=== PATIENT | female | born 1955 | race Caucasian/White ===

== ENCOUNTER 2022-08-17 06:49 | Outpatient (CLI) | payer OTHER | END 2022-08-17 06:50 | disposition critical access hospital (66) | LOC: EMS 06:49 | DX: R10.31 Right lower quadrant pain (principal) | CPT/HCPCS: A0425; A0427 ==

== ENCOUNTER 2022-08-17 07:19 | Emergency (ER) | payer OTHER ==
[2022-08-17] MEDS ORDERED: SODIUM CHLORIDE 0.9% 1,000 ML IV STA (07:42)
[2022-08-17] MEDS ORDERED: MORPHINE 2 MG/ML CARPUJECT IVP STA (07:42)
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
[2022-08-17 07:50] LABS: BASOPHILS % (AUTO) 0.2 %; EOSINOPHILS % (AUTO) 0.2 %; HCT - HEMATOCRIT 36.1 % (37.0-47.0); HGB - HEMOGLOBIN 12.1 g/dL (12.0-16.0); LYMPHOCYTES # (AUTO) 1.8 10^3/uL (1.5-3.5); LYMPHOCYTES % (AUTO) 32.4 %; MEAN CORPUSCULAR HEMOGLOBIN 33.4 pg (27.0-31.0); MEAN CORPUSCULAR HGB CONC 33.5 g/dL (32.0-36.0); MEAN CORPUSCULAR VOLUME 99.7 fL (81.0-99.0); MEAN PLATELET VOLUME 8.7 fL (7.9-10.8); MONOCYTES # (AUTO) 0.6 10^3/uL (0.0-1.0); NEUTROPHILS # (AUTO) 3.2 10^3/uL (1.5-6.6); NEUTROPHILS % (AUTO) 55.8 %; PLT - PLATELET COUNT 199 10^3/uL (130-450); RED BLOOD COUNT 3.62 10^6/uL (4.20-5.40); RED CELL DISTRIBUTION WIDTH 11.9 % (12.0-15.0); WHITE BLOOD COUNT 5.6 x10^3/uL (4.8-10.8)
[2022-08-17 08:00] LABS: BILIRUBIN,URINE NEGATIVE (NEGATIVE); GLUCOSE, URINE (UA) NEGATIVE (NEGATIVE); KETONES,URINE (UA) NEGATIVE (NEGATIVE); LEUKOCYTE ESTERASE, URINE NEGATIVE (NEGATIVE); NITRITE,URINE NEGATIVE (NEGATIVE); OCCULT BLOOD,URINE NEGATIVE (NEGATIVE); PROTEIN,URINE NEGATIVE (NEGATIVE); UROBILINOGEN,URINE 0.2 (NORMAL) E.U./dL (NORMAL)
[2022-08-17 08:03] LABS: CLARITY,URINE CLEAR (CLEAR)
[2022-08-17 08:10] LABS: ALBUMIN 3.5 g/dL (3.2-5.5); ALBUMIN/GLOBULIN RATIO 1.3 (1.0-2.2); BILIRUBIN,TOTAL 0.5 mg/dL (0.2-1.0); CALCIUM 8.7 mg/dL (8.5-10.3); CREATININE 0.6 mg/dL (0.4-1.0); POTASSIUM 3.7 mmol/L (3.5-5.0); TOTAL PROTEIN 6.1 g/dL (6.7-8.2)
--- NOTE | 2022-08-17 08:46 | CT Report ---
PROCEDURE: ABDOMEN/PELVIS WO INDICATIONS: R flank pain TECHNIQUE: Noncontrast 5 mm thick sections acquired from the diaphragms to the symphysis. 5 mm coronal and sagi ttal reformats were then performed. For radiation dose reduction, the following was used: automated exposure control, adjustment of mA and/or kV according to patient size. COMPARISON: None. FINDINGS: Image quality: There is limited visualization of the pelvis secondary to artifact from hip fixation. ABDOMEN: Lung bases: Rounded opacity is noted in the lateral aspect of the left lower lobe measuring approxima tely 1 cm.. Heart size is normal. Solid organs: Liver and spleen are normal in size. Gallbladder is no visual Pancreas is normal in contours. No adrenal nodules. Kidneys are normal in size.. Punctate nonobstructing right renal calc ulus is present. The ureters are difficult to discern bilaterally secondary to significant colonic st ool. There is a punctate area of the increased density within the expected course of the distal right ureter. There is minimal prominence of the left renal renal collecting system and left ureter. Peritoneum and bowel: Unenhanced bowel loops are nonobstructed. Colonic diverticula are present with out associated inflammatory change. Significant colonic stool is present. No free fluid or air. Nodes and vessels: No retroperitoneal or mesenteric adenopathy by size criteria. Aorta and inferior vena cava are normal in caliber. Miscellaneous: No ventral hernias. PELVIS: Genitourinary: Bladder wall thickness is normal. Miscellaneous: No inguinal hernias or adenopathy. Bones: No suspicious bony lesions. No vertebral body compression fractures. IMPRESSION: Poor visualization of the ureters bilaterally secondary to significant colonic stool. However, there is a punctate area of faint calcification along the expected course of the distal right ureter with s light prominence of the renal collecting system and right ureter suggestive of stone. Rounded opacity within the right lung suggestive of scarring. However, no priors are available for co mparison and [address] chest follow-up is recommended. Reviewed by: Candis Hernandez MD on 08/17/2022 8:45 AM PDT Approved by: Candis Hernandez MD on 08/17/2022 8:45 AM PDT Station ID: [id number]
[2022-08-17] MEDS ORDERED: KETOROLAC 30 MG/ML VIAL IVP STA (11:00)
[2022-08-17] MEDS ORDERED: oxyCODONE 5 MG TABLET PO STA (11:00)
[2022-08-17 11:02] VITALS: BP 104/71
== END 2022-08-17 11:09 | disposition home or self-care (01) ==
LOC: ED 07:19
DX: N20.1 Calculus of ureter (principal); R94.8 Abnormal results of function studies of other organs and systems
CPT/HCPCS: 36415; 74176; 80053; 81003; 83690; 85025; 96374; 96375; 99283; 99284; A9270; 81001; 87086

== ENCOUNTER 2023-06-19 15:52 | Outpatient (CLI) | payer OTHER | END 2023-06-19 15:53 | disposition short-term general hospital (02) | LOC: EMS 15:52 | PROVIDERS: ATTEND Emergency Medicine | DX: M79.89 Other specified soft tissue disorders (principal); M79.661 Pain in right lower leg; M79.672 Pain in left foot; S90.462A Insect bite (nonvenomous), left great toe, initial encounter; S90.464A Insect bite (nonvenomous), right lesser toe(s), initial encounter; S80.861A Insect bite (nonvenomous), right lower leg, initial encounter; S50.861A Insect bite (nonvenomous) of right forearm, initial encounter; W57.XXXA Bitten or stung by nonvenomous insect and other nonvenomous arthropods, initial encounter | CPT/HCPCS: A0425; A0429 ==

== ENCOUNTER 2024-04-09 12:02 | Outpatient (CLI) | payer OTHER | END 2024-04-09 12:03 | disposition critical access hospital (66) | LOC: EMS 12:02 | DX: T65.91XA Toxic effect of unspecified substance, accidental (unintentional), initial encounter (principal); R40.4 Transient alteration of awareness; R06.89 Other abnormalities of breathing | CPT/HCPCS: A0425; A0429 ==

== ENCOUNTER 2024-04-09 12:22 | Inpatient (IN) | payer OTHER ==
--- NOTE | 2024-04-09 12:28 | ED Physician Documentation ---
PD HPI ALTERED MENTAL STATUS - Stated complaint Stated Complaint: OD - History obtained from History obtained from: Patient, Friend, EMS (Medics brought the patient in with altered mental status with report from family/friend that the patient was poorly responsive with low ventilation and was given Narcan by bystander and did have some chest compressions briefly. The patient was rousable but low sats in low ventilation by medics.) - History of Present Illness Timing - onset: Today Timing - details: Abrupt onset (Reportedly onset after the patient was smoking reportedly cannibis and cocaine or snorting as well. However bystander thinks there may have been fentanyl, meth as well.) Quality / character: Unresponsive Associated symptoms: No: NVD, Seizure activity Basline status: Alert and oriented X 3, Ambulatory Treatment STEERSMAN: Accucheck, Narcan, Airway management (supplemental oxygen as sats about 80% RA.) Recently seen: Not recently seen Review of Systems Unable to obtain: AMS PD PAST MEDICAL HISTORY - Present Medications Home Medications: Ambulatory Orders Medication Instructions Recorded Confirmed Ondansetron Odt [Zofran] 4 mg TL Q6H PRN #10 tablet 08/17/22 Oxycodone HCl/Acetaminophen 1 each PO Q6H PRN #14 tablet 08/17/22 [Percocet 5-325 mg Tablet] Tamsulosin [Flomax] 0.4 mg PO DAILY #14 cap 08/17/22 polyethylene glycoL 3350 [Miralax] 17 gm PO DAILY PRN #14 packet 08/17/22 - Allergies Allergies/Adverse Reactions: Allergies Allergy/AdvReac Type Severity Reaction Status Date / Time No Known Drug Allergies Allergy Verified 04/09/24 12:33 PD ED PE NORMAL - Vitals Vital signs reviewed: Yes - General General: Other (somnolent, rousable to tactile with eyes opening but stuporous and slow to answer questions. ) - HEENT HEENT: Pharynx benign (adequate gag reflex) - Neck Neck: Supple, no meningeal sign, No adenopathy - Cardiac Cardiac: RRR, No murmur - Respiratory Respiratory: No respiratory distress, Clear bilaterally - Abdomen Abdomen: Soft, Non tender, Non distended, Other (large ower bd midline scar old. ) - Derm Derm: Normal color, Warm and dry - Extremities Extremities: No tenderness to palpate, Normal ROM s pain - Neuro Neuro: No motor deficit, No sensory deficit. No: Alert and oriented X 3 (oriented to person) Results - Vitals Vitals: Vital Signs - 24 hr 04/09/24 04/09/24 04/09/24 12:29 13:03 13:33 Temperature 36.3 C L Heart Rate 85 74 81 Respiratory 14 12 13 Rate Blood Pressure 119/81 H 99/69 106/89 H O2 Saturation 90 L 95 88 L If not protocol 2 2 : Oxygen Flow, liters/minute 04/09/24 04/09/24 04/09/24 14:03 14:30 15:30 Temperature Heart Rate 85 79 86 Respiratory 13 15 9 L Rate Blood Pressure 101/73 96/71 97/70 O2 Saturation 89 L 96 93 If not protocol 2 2 4 : Oxygen Flow, liters/minute 04/09/24 04/09/24 16:00 16:53 Temperature Heart Rate 84 80 Respiratory 21 10 L Rate Blood Pressure 100/74 107/80 O2 Saturation 99 96 If not protocol 4 4 : Oxygen Flow, liters/minute Oxygen O2 Source Nasal cannula Oxygen Flow Rate 3 - Labs Labs: Laboratory Tests 04/09/24 04/09/24 04/09/24 12:27 12:27 12:45 WBC 4.8 RBC 3.74 L Hgb 12.4 Hct 37.9 MCV 101.3 H MCH 33.2 H MCHC 32.7 RDW 13.0 Plt Count 218 MPV 9.2 Neut # (Auto) 2.9 Lymph # (Auto) 1.3 L [place] # (Auto) 0.5 Eos # (Auto) 0.0 Baso # (Auto) 0.0 Absolute Nucleated RBC 0.00 Nucleated RBC % 0.0 VBG pH VBG pCO2 VBG pO2 VBG HCO3 VBG Total CO2 VBG O2 Saturation VBG Base Excess Sodium 135 Potassium 3.3 L Chloride 103 Carbon Dioxide 24 Anion Gap 8.0 BUN 16 Creatinine 0.6 Estimated GFR (MDRD) 100 Glucose 181 H Calcium 9.5 Magnesium 1.6 L Total Bilirubin 0.5 AST 23 ALT 14 Alkaline Phosphatase 101 Total Creatine Kinase 77 Total Protein 6.9 Albumin 4.3 Globulin 2.6 Albumin/Globulin Ratio 1.7 Lipase < 10 L TSH 68.07 H Thyroxine (T4) 4.8 L Free T3 pg/mL 3.20 T3 Uptake 42 Urine Color Urine Clarity Urine pH Ur Specific [place] Urine Protein Urine Glucose (UA) Urine Ketones Urine Occult Blood Urine Nitrite Urine Bilirubin Urine Urobilinogen Ur Leukocyte Esterase Ur Microscopic Review Urine Culture Comments Salicylates < 1.5 Urine Opiates Screen Ur Buprenorphine Scrn Ur Oxycodone Screen Urine Methadone Screen Acetaminophen 0.2 Ur Barbiturates Screen Ur Tricyclics Screen Ur Phencyclidine Scrn Ur Amphetamine Screen U Methamphetamines Scrn U Benzodiazepines Scrn Urine Cocaine Screen U Cannabinoids Screen Ur Drug Screen Comment Ethyl Alcohol < 10.0 04/09/24 04/09/24 16:47 16:48 WBC RBC Hgb Hct MCV MCH MCHC RDW Plt Count MPV Neut # (Auto) Lymph # (Auto) [place] # (Auto) Eos # (Auto) Baso # (Auto) Absolute Nucleated RBC Nucleated RBC % VBG pH 7.203 L VBG pCO2 50.0 VBG pO2 139.1 H VBG HCO3 19.2 L VBG Total CO2 20.8 L VBG O2 Saturation 98.2 H VBG Base Excess -8.8 L Sodium Potassium Chloride Carbon Dioxide Anion Gap BUN Creatinine Estimated GFR (MDRD) Glucose Calcium Magnesium Total Bilirubin AST ALT Alkaline Phosphatase Total Creatine Kinase Total Protein Albumin Globulin Albumin/Globulin Ratio Lipase TSH Thyroxine (T4) Free T3 pg/mL T3 Uptake Urine Color YELLOW Urine Clarity CLEAR Urine pH 5.5 Ur Specific [place] >=1.030 H Urine Protein TRACE Urine Glucose (UA) NEGATIVE Urine Ketones NEGATIVE Urine Occult Blood NEGATIVE Urine Nitrite NEGATIVE Urine Bilirubin NEGATIVE Urine Urobilinogen 0.2 (NORMAL) Ur Leukocyte Esterase NEGATIVE Ur Microscopic Review NOT INDICATED Urine Culture Comments NOT INDICATED Salicylates Urine Opiates Screen NEGATIVE Ur Buprenorphine Scrn NEGATIVE Ur Oxycodone Screen NEGATIVE Urine Methadone Screen NEGATIVE Acetaminophen Ur Barbiturates Screen NEGATIVE Ur Tricyclics Screen NEGATIVE Ur Phencyclidine Scrn NEGATIVE Ur Amphetamine Screen NEGATIVE U Methamphetamines Scrn POSITIVE H U Benzodiazepines Scrn NEGATIVE Urine Cocaine Screen POSITIVE H U Cannabinoids Screen POSITIVE H Ur Drug Screen Comment CUTOFF CONC BELOW: Ethyl Alcohol - Rads (name of study) chest xray Relevant Findings:: Prelim report reviewed (no acute process), EMP independent interpretation of test PD Medical Decision Making - ED course Complexity details: considered differential (The patient arrived via EMS with history mainly from the medics. Reported use of substances with significant altered mentation and hypoventilation. Given Narcan with moderate improvement. Still hypoxic. Still somnolent.), d/w patient ED course: The patient did have adequate respiratory effort and oxygenation with supplemental nasal cannula at just 2 L. She was arousable to tactile stimuli with eye opening and answering some questions though sluggish. She states she had used cannabis and cocaine but I think her symptoms are more suggestive of opioid and possibly meth. At this point we are still waiting a urine. She is given IV fluids as well as placed on the heart monitor. With initial labs back we were seeing a low potassium and magnesium just moderately so with a potassium 3.3 and magnesium 1.6. However on her EKG she did have QT prolongation so I opted to treat with supplemental magnesium and potassium as well as fluids to improve on that. There is no report of syncope. She still had not had any urine out. Bladder scan to see if there is retention but we can do an In-N-Out catheter to get a urine sample. The patient initially when talking with me did states she would be interested in detox. I ordered social work consult. Rosalie came and talked with the patient but the patient declined desire for any detox or treatment. She was given the information for the places to call if she changes her mind in the near future. The patient has become more somnolent. She is still arousable for eye-opening to tactile stimuli. Oxygenation on 2 L nasal cannula is about 90%. She is given a repeat dose of Narcan IV. We will check a VBG as well to make sure ventilation is adequate at this point given the decreasing alertness. Will see how she does with the repeat medicines and such. If it is not so much of an opioid effect, then concern would be for the duration of symptoms and whether she may needed's status presuming a little longer duration. However at this point we will start working on repeat medicines and the urine tox screen. It has been about 3 hours at this point so we will give a short time more. The patient did get up to a bedside commode and urinated. We did check a blood gas which showed some metabolic acidosis with a pH of 7.2 and a low bicarb. However pCO2 was good at 50 and pO2 was actually on the high side at 98% though she was more stimulated with the blood draw at the time. Subsequent she does go back to sleep quite readily. She is arousable to light tactile stimulus. Her oxygenation however is below 90% on room air and adequate above 90% on nasal cannula. She is maintained with the head of the bed elevated. Blood pressure is adequate. She is receiving IV fluids. At this point we have 30 urine tox showing meth, cocaine, cannabis and she likely has other substances on board that would not show such as possible fentanyl or xylazine etc., it seems reasonable that she is stable and vital signs and ventilation but needs time to metabolize. Departure - Departure Disposition: ED Place in Observation Clinical Impression: Altered mental status, Polysubstance abuse, Electrolyte abnormality, Hypoxia Condition: Stable Record reviewed to determine appropriate education?: Yes
[2024-04-09 12:42] LABS: HCT - HEMATOCRIT 37.9 % (37.0-47.0); HGB - HEMOGLOBIN 12.4 g/dL (12.0-16.0); LYMPHOCYTES # (AUTO) 1.3 10^3/uL (1.5-3.5); LYMPHOCYTES % (AUTO) 27.3 %; MEAN CORPUSCULAR HEMOGLOBIN 33.2 pg (27.0-31.0); MEAN CORPUSCULAR HGB CONC 32.7 g/dL (32.0-36.0); MEAN CORPUSCULAR VOLUME 101.3 fL (81.0-99.0); MEAN PLATELET VOLUME 9.2 fL (7.9-10.8); MONOCYTES # (AUTO) 0.5 10^3/uL (0.0-1.0); MONOCYTES % (AUTO) 9.9 %; NEUTROPHILS # (AUTO) 2.9 10^3/uL (1.5-6.6); NEUTROPHILS % (AUTO) 61.1 %; PLT - PLATELET COUNT 218 10^3/uL (130-450); RED BLOOD COUNT 3.74 10^6/uL (4.20-5.40); WHITE BLOOD COUNT 4.8 x10^3/uL (4.8-10.8)
[2024-04-09] MEDS: SODIUM CHLORIDE 0.9% 1,000 ML IV STA (12:52)
[2024-04-09] MEDS: ONDANSETRON 4 MG/2 ML VIAL IVP STA (12:52)
[2024-04-09 13:00] LABS: ACETAMINOPHEN 0.2 ug/mL; ALBUMIN 4.3 g/dL (3.2-5.5); ALBUMIN/GLOBULIN RATIO 1.7 (1.0-2.2); ALKALINE PHOSPHATASE 101 IU/L (42-121); ALT ALANINE AMINOTRANSFERASE 14 IU/L (10-60); AST ASPARTATE AMINOTRANSFERASE 23 IU/L (10-42); BILIRUBIN,TOTAL 0.5 mg/dL (0.2-1.0); BUN - BLOOD UREA NITROGEN 16 mg/dL (6-20); CALCIUM 9.5 mg/dL (8.5-10.3); CARBON DIOXIDE - CO2 24 mmol/L (21-32); CHLORIDE 103 mmol/L (101-111); CK- CREATINE KINASE 77 IU/L (30-223); CREATININE 0.6 mg/dL (0.6-1.3); ETOH - ETHANOL < 10.0 mg/dL; GFR - MDRD 100 (>89); GLUCOSE 181 mg/dL (74-104); MAGNESIUM 1.6 mg/dL (1.7-2.3); POTASSIUM 3.3 mmol/L (3.5-4.5); SODIUM 135 mmol/L (135-145); TOTAL PROTEIN 6.9 g/dL (6.4-8.9)
[2024-04-09 13:01] LABS: LIPASE < 10 U/L (11-82)
[2024-04-09 13:03] LABS: SALICYLATE < 1.5 mg/dL
--- NOTE | 2024-04-09 13:05 | XRAY Report ---
PROCEDURE: Chest 1V INDICATIONS: SOA TECHNIQUE: One view of the chest was acquired. COMPARISON: None. FINDINGS: Surgical changes and devices: None. Lungs and pleura: No pleural effusions or pneumothorax. Lungs are clear. Mediastinum: Mediastinal contours appear normal. Heart size is normal. Bones and chest wall: No suspicious bony lesions. Overlying soft tissues appear unremarkable. Upper abdomen: Prominent gastric bubble. IMPRESSION: No acute cardiopulmonary process. Prominent gastric bubble. Reviewed by: Candis Hernandez MD on 04/09/2024 1:03 PM PDT Approved by: Candis Hernandez MD on 04/09/2024 1:03 PM PDT Station ID: [id number]
[2024-04-09 13:37] LABS: THYROID STIMULATING HORMONE 68.07 uIU/mL (0.34-5.60)
[2024-04-09] MEDS: THIAMINE INJ 100 MG, MAGNESIUM SULFATE 2 GM, MULTIVITAMIN 10 ML, FOLIC ACID INJ 1 MG in... IV STA (14:45)
[2024-04-09] MEDS: NALOXONE 0.4 MG/ML VIAL IVP STA ×2 (15:55→17:55)
[2024-04-09] MEDS: MAGNESIUM SULFATE 2 GRAM 2 GM/50 ML BAG IV ONE ×2 (16:32→22:38)
[2024-04-09] MEDS: POTASSIUM CHLOR 10 MEQ/100 ML 10 MEQ/100 ML BAG IV STA (16:40)
[2024-04-09 16:55] LABS: VBG BASE EXCESS -8.8 mmol/L (-2 - +2); VBG HCO3 19.2 mmol/L (23-28); VBG OXYGEN SATURATION 98.2 % (60-80); VBG PH 7.203 (7.31-7.41); VBG PO2 139.1 mmHg (25-47); VBG TOTAL CO2 20.8 mmol/L (24-29)
[2024-04-09 16:57] LABS: BILIRUBIN,URINE NEGATIVE (NEGATIVE); GLUCOSE, URINE (UA) NEGATIVE (NEGATIVE); KETONES,URINE (UA) NEGATIVE (NEGATIVE); LEUKOCYTE ESTERASE, URINE NEGATIVE (NEGATIVE); NITRITE,URINE NEGATIVE (NEGATIVE); OCCULT BLOOD,URINE NEGATIVE (NEGATIVE); PH,URINE 5.5 PH (5.0-7.5); PROTEIN,URINE TRACE mg/dL (NEGATIVE); UROBILINOGEN,URINE 0.2 (NORMAL) E.U./dL (NORMAL)
[2024-04-09 16:58] LABS: CLARITY,URINE CLEAR (CLEAR)
[2024-04-09 17:04] LABS: THC CANNABINOID SCREEN, URINE POSITIVE (NEGATIVE)
[2024-04-09 17:05] LABS: AMPHETAMINE SCREEN,URINE NEGATIVE (NEGATIVE); BARBITURATE SCREEN,UR NEGATIVE (NEGATIVE); BENZODIAZEPINES SCREEN, URINE NEGATIVE (NEGATIVE); BUPRENORPHINE SCREEN, URINE NEGATIVE (NEGATIVE); COCAINE SCREEN URINE POSITIVE (NEGATIVE); METHADONE SCREEN, URINE NEGATIVE (NEGATIVE); METHAMPHETAMINES SCREEN, URINE POSITIVE (NEGATIVE); OPIATE SCREEN, URINE NEGATIVE (NEGATIVE); OXYCODONE SCREEN, URINE NEGATIVE (NEGATIVE); TRICYCLIC ANTIDEPRESSANT,URINE NEGATIVE (NEGATIVE)
--- NOTE | 2024-04-09 19:00 | HISTORY & PHYSICAL EXAMINATION ---
Chief Complaint - Chief Complaint Chief Complaint: Altered Mental Status History of Present Illness - Admitted From Admitted From:: Emergency Room - History Obtained From Records Reviewed: Yes History obtained from: Patient and Dr. Remi Alvarado - History of Present Illness HPI Comment/Other: Marcella Torres is a 68-year-old woman who presented to the emergency room at approximately 1228 with altered mental status. Patient was brought to the e mergency room by EMS service. Per report patient was not ventilating in the field and was unresponsive. She was given Narcan by a bystander and received chest compressions briefly. Upon arrival of EMS service, patient had low oxygen saturation. It is reported that patient was smoking cannabis and using cocaine. Bystanders thinks the patient may also used fentanyl and methamphetamine possibly. Patient reports she is supposed to take levothyroxine but has not taken it for several months. She also reports that she is on a blood thinner but has not been taking this for months as well. She reports a history of myocardial infarction and stroke. She has a [id number] history of smoking. She reports she drinks alcohol regularly but could not quantitate how much alcohol she drinks. She reports using methamphetamine and cocaine when she can obtain it. She reports smoking cannabis regularly. She denies use of opiates. In the emergency room, laboratory workup revealed no anion gap with a potassium of 3.3, glucose of 181 and a magnesium of 1.6. Patient's TSH was 68 and free T4 was 4.8. Chest x-ray performed in the emergency room revealed no acute cardiopulmonary process. In the emergency room, patient received doses of Narcan intermittently and usually received 2 mg intravenously. It is reported that patient's mental status improved slightly with use of Narcan. History - Past Medical History Endocrine/Autoimmune: reports: HyPOthyroidism Psych: reports: Other (Polysubstance abuse. Patient reports using methamphetamine, cocaine, cannabis and alcohol) - Family & Social History Family History Comment/Other: Patient has 1 son and she reports he is currently improving. Living arrangement: Homeless Living Situation: Unknown, Other (She reports she lives out of her car.) - Substance History Use: Uses substance without health or social issues: Tobacco, Alcohol, Amphetamine, Cannabis, Cocaine Dependence: Experiences withdrawal or developed tolerances: Cannabis, Cocaine, Other (Methamphetamine.) Dependence Issues: Intoxication Tobacco Details: Cigarettes - POLST Patient has POLST: No POLST Status: Full Code Meds/Allgy - Home Medications Home Medications: Ambulatory Orders Medication Instructions Recorded Confirmed Ondansetron Odt [Zofran] 4 mg TL Q6H PRN #10 tablet 08/17/22 Oxycodone HCl/Acetaminophen 1 each PO Q6H PRN #14 tablet 08/17/22 [Percocet 5-325 mg Tablet] Tamsulosin [Flomax] 0.4 mg PO DAILY #14 cap 08/17/22 polyethylene glycoL 3350 [Miralax] 17 gm PO DAILY PRN #14 packet 08/17/22 - Allergies Allergies/Adverse Reactions: Allergies Allergy/AdvReac Type Severity Reaction Status Date / Time No Known Drug Allergies Allergy Verified 04/09/24 12:33 Exam - Vital Signs Vital Signs: Vital Signs x48h Temp Pulse Resp BP Pulse Ox O2 Flow Rate 04/09/24 17:30 112 H 26 H 103/72 100 6 04/09/24 16:53 80 10 L 107/80 96 4 04/09/24 16:00 84 21 100/74 99 4 04/09/24 15:30 86 9 L 97/70 93 4 04/09/24 14:30 79 15 96/71 96 2 04/09/24 14:03 85 13 101/73 89 L 2 04/09/24 13:33 81 13 106/89 H 88 L 2 04/09/24 13:03 74 12 99/69 95 2 04/09/24 12:29 36.3 C L 85 14 119/81 H 90 L - Physical Exam General Appearance: positive: No acute distress, Alert Eyes Bilateral: positive: Normal inspection, Conjunctivae nml Neck: positive: No JVD, Trachea midline, Thyromegaly Respiratory: positive: Other (Good air exchange in all lung sanchez no wheezing no crackles.) Cardiovascular: positive: Other (Positive S1-S2 no extra heart sounds.) Abdomen: positive: Other (Soft nondistended positive bowel sound) Skin: positive: No rash, Warm Extremities: positive: Nml appearance, No pedal edema Neurologic/Psychiatric: positive: Other (Moving all 4 extremities.) Conclusion/Plan - Problem List (1) Toxic encephalopathy Conclusion/Plan: Most likely related to polysubstance use with methamphetamine, cocaine and cannabis. At this point I cannot rule out another substance such as fentanyl. Fentanyl would not show up on the drug screen. (2) Acute respiratory failure with hypoxia and hypercarbia Conclusion/Plan: Patient has required oxygen since her admission and most likely the use of oxygen is related to her substance abuse. Arterial blood gas obtained at approximately 1700 revealed a pH of 7.2, pCO2 of 50 and a oxygen of 139. Hypercarbic respiratory failure is also most likely related to substance abuse. (3) Polysubstance abuse Conclusion/Plan: Urine drug screen is positive for methamphetamine, cocaine and cannabis. At this time I cannot exclude another substance such as fentanyl or other opiate. Patient does appear to respond to Narcan. Plan: Patient to be admitted to the intensive care unit for close hemodynamic monitoring. Admission to an intensive care unit is warranted given the fact that patient will require hourly blood pressures and close monitoring of her respiratory rate and oxygen saturations. Patient received Narcan 2 mg intravenously every 30 minutes as needed for the respiratory rate less than 8 or worsening oxygen saturation. (4) Hypokalemia Conclusion/Plan: Repolace potassium (5) Hypomagnesemia Conclusion/Plan: Replace magnesium - Lab Results Fish Bones: 04/09/24 12:27 04/09/24 12:27
[2024-04-09] MEDS ORDERED: NALOXONE 0.4 MG/ML VIAL IVP PRN (19:24)
[2024-04-09] MEDS: INSULIN REGULAR, HUMAN 300 UNIT/3 ML PEN SUBQ SCH (19:51)
[2024-04-09] MEDS: NALOXONE HCL NASAL SPRAY KIT NAS STA (20:02)
[2024-04-09] MEDS: NS W/40 MEQ KCL 1,000 ML IV SCH (20:14)
[2024-04-09] MEDS: NS W/20 MEQ KCL 1,000 ML IV SCH (20:21)
[2024-04-09] MEDS: NALOXONE 0.4 MG/ML VIAL IVP PRN (21:00)
[2024-04-10] MEDS: SODIUM CHLORIDE FLUSH 0.9% 10 ML SYRINGE IVP SCH
[2024-04-10] MEDS ORDERED: NALOXONE 0.4 MG/ML VIAL ONE (03:10)
[2024-04-10 04:42] LABS: CALCIUM, IONIZED 1.01 mmol/L (1.15-1.33); VBG PH 7.351 (7.31-7.41)
[2024-04-10 04:43] LABS: BASOPHILS % (AUTO) 0.2 %; LYMPHOCYTES # (AUTO) 0.7 10^3/uL (1.5-3.5); LYMPHOCYTES % (AUTO) 6.4 %; MEAN CORPUSCULAR HEMOGLOBIN 33.3 pg (27.0-31.0); MEAN CORPUSCULAR HGB CONC 31.6 g/dL (32.0-36.0); MEAN CORPUSCULAR VOLUME 105.6 fL (81.0-99.0); MONOCYTES # (AUTO) 0.9 10^3/uL (0.0-1.0); MONOCYTES % (AUTO) 8.2 %; NEUTROPHILS # (AUTO) 9.1 10^3/uL (1.5-6.6); NEUTROPHILS % (AUTO) 84.8 %; RED CELL DISTRIBUTION WIDTH 12.8 % (12.0-15.0)
[2024-04-10 05:00] LABS: MAGNESIUM 2.4 mg/dL (1.7-2.3)
[2024-04-10 05:02] LABS: ALBUMIN 3.6 g/dL (3.2-5.5); ALBUMIN/GLOBULIN RATIO 1.5 (1.0-2.2); BILIRUBIN,TOTAL 0.4 mg/dL (0.2-1.0); CALCIUM 8.4 mg/dL (8.5-10.3); CREATININE 0.5 mg/dL (0.6-1.3); POTASSIUM 4.7 mmol/L (3.5-4.5)
[2024-04-10 05:04] LABS: WHITE BLOOD COUNT 10.7 x10^3/uL (4.8-10.8)
[2024-04-10] MEDS: CALCIUM GLUC 1,000MG/50ML-NACL 1,000 MG/50 ML BAG IV ONE (06:28)
[2024-04-10] MEDS: ENOXAPARIN 40 MG/0.4 ML SYRINGE SUBQ SCH (08:50)
--- NOTE | 2024-04-10 13:19 | PROVIDER PROGRESS NOTE ---
Assessment/Plan - Problem List (1) Toxic encephalopathy Assessment/Plan: Most likely related to polysubstance use with methamphetamine, cocaine, cannabis and highly likely to be related to opiate use given her clinical finding of pinpoint pupils and the fact that she does respond to treatment with Narcan. She continues to hypoventilate and has episodes of desaturation. She underwent a trial of removing oxygen and desaturated into the mid 80. A nasal cannula was placed and titrated to 6 LPM but she continued to desaturate and currently is requiring a simple mask. (2) Acute respiratory failure with hypoxia and hypercarbia Conclusion/Plan: Patient has required oxygen since her admission and most likely the use of oxygen is related hypoventilation secondary to her substance abuse. (3) Polysubstance abuse Conclusion/Plan: Urine drug screen is positive for methamphetamine, cocaine and cannabis. At this time I cannot exclude another substance such as fentanyl or other opiate. Patient does appear to respond to Narcan. Plan: Patient to be admitted to the intensive care unit for close hemodynamic monitoring. Admission to an intensive care unit is warranted given the fact that patient will require hourly blood pressures and close monitoring of her respiratory rate and oxygen saturations. Patient to receive Narcan 2 mg intravenously every 5 minutes as needed for the respiratory rate less than 8 or worsening oxygen saturation. (4) Hypothyroidism Conclusion/Plan: Patient reportedly was taking levothyroxine as an outpatient but stopped months ago. Plan: Restart levothyroxine at 50 mcg IV daily and then start PO at 75 mcg daily once she is tolerating PO. She remains NPO at this time. - Current Meds Current Meds: Current Medications Generic Name Dose Route Start Last Admin Trade Name Isidro PRN Reason Stop Dose Admin Enoxaparin Sodium 40 mg 04/10/24 09:00 04/10/24 08:50 Enoxaparin 40 Mg/0.4 Ml Syringe SUBQ 40 mg DAILY SUSANNA Administration Potassium Chloride/Sodium Chloride 1,000 mls @ 100 mls/hr 04/09/24 21:00 04/10/24 05:56 Normal Saline 0.9% W/20 Meq Kcl IV Infused .Q10H SUSANNA Infusion Insulin Human Regular 1 - 5 unit 04/09/24 19:00 04/10/24 12:21 Insulin Regular, Human 300 Unit/3 Ml Pen SUBQ Not Given Q6HR SUSANNA Protocol Naloxone HCl 2 mg 04/09/24 20:05 04/10/24 02:31 Naloxone 0.4 Mg/Ml Vial IVP 2 mg Q5MIN PRN Administration opiate overdose Sodium Chloride 10 ml 04/10/24 01:00 04/10/24 08:56 Sodium Chloride Flush 0.9% 10 Ml Syringe IVP Not Given 0100,0900,1700 SUSANNA - Lab Result Fish Bone Diagrams: 04/10/24 04:34 04/10/24 04:34 - Additional Planning My Orders: My Active Orders 04/09/24 18:35 Turn, Cough and Deep Breathe [RC] Q4HR Vital Signs [RC] Q1HR Ondansetron Inj [Zofran Inj] 4 mg IVP Q6HR PRN Ondansetron Odt [Zofran Odt] 4 mg TL Q6HR PRN Sodium Chloride Flush 0.9% [Normal Saline Flush 0.9%] 10 ml IVP PRN PRN 04/09/24 18:36 Activity Orders (ICU) [RC] Q2HR Daily Weight [RC] 0600 IO [RC] Q1HR Initiate Bowel Care Protocol [RC] QSHIFT Initiate ICU Electrolyte Prot. [RC] .protocol Initiate Line Care Protocol [RC] .protocol Initiate Personal Care Protoco [RC] .protocol Initiate Progressive Mobility Protocol [RC] 0800,1999 Code Status [OTHERS] Routine Condition of Patient [OTHERS] Routine DVT Prophylaxis [OTHERS] Routine 04/09/24 18:40 NPO [DIET] 04/09/24 18:43 Telemetry- [RC] Q4HR 04/09/24 18:44 Oxygen Therapy [RC] .PRN 04/09/24 18:51 Initiate Line Care Protocol [RC] QSHIFT 04/09/24 18:53 Blood Glucose POC [RC] 0000,0600,1200,1800 Initiate Hypoglycemia Protocol [RC] .protocol 04/09/24 19:00 Insulin Regular, Human [NovoLIN R FlexPen] 1 - 5 unit SUBQ Q6HR 04/09/24 20:05 Naloxone [Narcan] 2 mg IVP Q5MIN PRN 04/09/24 21:00 Ns W/20 Meq KCl [Normal Saline 0.9% W/20 Meq KCl] 1,000 ml IV 100 mls/hr 04/10/24 01:00 Sodium Chloride Flush 0.9% [Normal Saline Flush 0.9%] 10 ml IVP 0100,0900,1700 04/10/24 09:00 Enoxaparin [Lovenox] 40 mg SUBQ DAILY 04/11/24 09:00 Levothyroxine Inj [Synthroid Inj] 50 mcg IVP DAILY 04/11/24 12:00 Banana Bag (MVI,THIAMINE, FOLIC ACID IN NS) Multivitamin [Infuvite] 10 ml Thiamine Inj [Vitamin B-1 Inj] 100 mg Folic Acid Inj [Folic Acid] 1 mg Sodium Chloride 0.9% [Normal Saline 0.9%] 1,000 ml IV DAILY@1200 Subjective - Subjective Patient Reports: Other (Remains somnolent. She will arouse with significant stimulus but then falls back to sleep. She continues to have pinpoint pupils. She cannot carry on a conversation at this time.) Objective Vital Signs: Vital Signs - 24 hr 04/09/24 04/09/24 04/09/24 13:33 14:03 14:30 Temperature Heart Rate 81 85 79 Heart Rate [ Monitoring electrodes] Respiratory 13 13 15 Rate Blood Pressure 106/89 H 101/73 96/71 Blood Pressure [Right Brachial artery] O2 Saturation 88 L 89 L 96 If not protocol 2 2 2 : Oxygen Flow, liters/minute 04/09/24 04/09/24 04/09/24 15:30 16:00 16:53 Temperature Heart Rate 86 84 80 Heart Rate [ Monitoring electrodes] Respiratory 9 L 21 10 L Rate Blood Pressure 97/70 100/74 107/80 Blood Pressure [Right Brachial artery] O2 Saturation 93 99 96 If not protocol 4 4 4 : Oxygen Flow, liters/minute 04/09/24 04/09/24 04/09/24 17:30 19:42 19:55 Temperature Heart Rate 112 H Heart Rate [ 85 Monitoring electrodes] Respiratory 26 H Rate Blood Pressure 103/72 Blood Pressure 117/82 H [Right Brachial artery] O2 Saturation 100 98 If not protocol 6 6 6 : Oxygen Flow, liters/minute 04/09/24 04/09/24 04/09/24 20:00 21:00 21:30 Temperature 36.5 C Heart Rate Heart Rate [ 90 87 Monitoring electrodes] Respiratory 8 L Rate Blood Pressure Blood Pressure 118/77 127/83 H [Right Brachial artery] O2 Saturation 93 If not protocol 6 6 2 : Oxygen Flow, liters/minute 04/09/24 04/09/24 04/10/24 22:00 23:00 00:00 Temperature 36.6 C Heart Rate Heart Rate [ 86 90 90 Monitoring electrodes] Respiratory 9 L 9 L 12 Rate Blood Pressure Blood Pressure 97/69 107/70 106/72 [Right Brachial artery] O2 Saturation 94 95 93 If not protocol 2 2 2 : Oxygen Flow, liters/minute 04/10/24 04/10/24 04/10/24 01:00 02:00 03:00 Temperature Heart Rate Heart Rate [ 84 82 83 Monitoring electrodes] Respiratory 8 L 8 L 14 Rate Blood Pressure Blood Pressure 106/73 111/72 107/73 [Right Brachial artery] O2 Saturation 93 93 96 If not protocol 2 2 : Oxygen Flow, liters/minute 04/10/24 04/10/24 04/10/24 04:00 05:00 06:00 Temperature 36.5 C Heart Rate Heart Rate [ 74 77 81 Monitoring electrodes] Respiratory 12 13 14 Rate Blood Pressure Blood Pressure 100/60 93/72 102/77 [Right Brachial artery] O2 Saturation 95 94 95 If not protocol 2 2 2 : Oxygen Flow, liters/minute 04/10/24 04/10/24 04/10/24 07:00 08:00 09:00 Temperature 36.4 C L Heart Rate Heart Rate [ 79 79 83 Monitoring electrodes] Respiratory 10 L 10 L 21 Rate Blood Pressure Blood Pressure 98/68 101/74 102/71 [Right Brachial artery] O2 Saturation 91 L 91 L 93 If not protocol 3 3 3 : Oxygen Flow, liters/minute 04/10/24 04/10/24 04/10/24 10:00 11:00 12:00 Temperature Heart Rate Heart Rate [ 78 86 87 Monitoring electrodes] Respiratory 14 13 20 Rate Blood Pressure Blood Pressure 103/74 111/70 104/71 [Right Brachial artery] O2 Saturation 93 91 L 90 L If not protocol 3 3 6 : Oxygen Flow, liters/minute Oxygen O2 Source Nasal cannula Oxygen Flow Rate 3 I&O (Last 24 Hrs): Intake and Output Totals x24h 04/08/24 04/09/24 04/10/24 23:59 23:59 23:59 Intake Total 2215.2 1318 Output Total 0 100 Balance 2215.2 1218 General: Alert, Oriented x3, No acute distress HEENT: Atraumatic Neck: Supple, No JVD, No thyromegaly Lymphatic: no adenopathy Neuro: Alert Cardiovascular: Other (Positive S1-S2 no extra heart sounds.) Respiratory: Other (Good air exchange in all lung sanchez no wheezing. Positive rhonchorous breath sounds. No crackles.) Abdomen: Other (Soft nontender nondistended positive bowel sounds.) Extremities: No cyanosis, No edema Skin: No rashes - Results Results: Laboratory Results WBC 10.7 x10^3/uL (4.8-10.8) 04/10/24 04:34 RBC 3.60 10^6/uL (4.20-5.40) L 04/10/24 04:34 Hgb 12.0 g/dL (12.0-16.0) 04/10/24 04:34 Hct 38.0 % (37.0-47.0) 04/10/24 04:34 MCV 105.6 fL (81.0-99.0) H 04/10/24 04:34 MCH 33.3 pg (27.0-31.0) H 04/10/24 04:34 MCHC 31.6 g/dL (32.0-36.0) L 04/10/24 04:34 RDW 12.8 % (12.0-15.0) 04/10/24 04:34 Plt Count 218 10^3/uL (130-450) 04/09/24 12:27 MPV 9.2 fL (7.9-10.8) 04/09/24 12:27 Neut # (Auto) 9.1 10^3/uL (1.5-6.6) H 04/10/24 04:34 Lymph # (Auto) 0.7 10^3/uL (1.5-3.5) L 04/10/24 04:34 Edgar # (Auto) 0.9 10^3/uL (0.0-1.0) 04/10/24 04:34 Eos # (Auto) 0.0 10^3/uL (0.0-0.7) 04/10/24 04:34 Baso # (Auto) 0.0 10^3/uL (0.0-0.1) 04/10/24 04:34 Absolute Nucleated RBC 0.00 x10^3/uL 04/10/24 04:34 Nucleated RBC % 0.0 /100WBC 04/10/24 04:34 VBG pH 7.351 (7.31-7.41) 04/10/24 04:26 VBG pCO2 50.0 mmHg (41-51) 04/09/24 16:48 VBG pO2 139.1 mmHg (25-47) H 04/09/24 16:48 VBG HCO3 19.2 mmol/L (23-28) L 04/09/24 16:48 VBG Total CO2 20.8 mmol/L (24-29) L 04/09/24 16:48 VBG O2 Saturation 98.2 % (60-80) H 04/09/24 16:48 VBG Base Excess -8.8 mmol/L (-2 - +2) L 04/09/24 16:48 Ionized Calcium 1.01 mmol/L (1.15-1.33) L 04/10/24 04:26 Sodium 135 mmol/L (135-145) 04/10/24 04:34 Potassium 4.7 mmol/L (3.5-4.5) H 04/10/24 04:34 Chloride 108 mmol/L (101-111) 04/10/24 04:34 Carbon Dioxide 22 mmol/L (21-32) 04/10/24 04:34 Anion Gap 5.0 (6-13) L 04/10/24 04:34 BUN 13 mg/dL (6-20) 04/10/24 04:34 Creatinine 0.5 mg/dL (0.6-1.3) L 04/10/24 04:34 Estimated GFR (MDRD) 123 (>89) 04/10/24 04:34 Glucose 133 mg/dL (74-104) H 04/10/24 04:34 POC Whole Bld Glucose 120 mg/dL (70 - 100) H 04/10/24 12:03 Calcium 8.4 mg/dL (8.5-10.3) L 04/10/24 04:34 Magnesium 2.4 mg/dL (1.7-2.3) H 04/10/24 04:34 Total Bilirubin 0.4 mg/dL (0.2-1.0) 04/10/24 04:34 AST 24 IU/L (10-42) 04/10/24 04:34 ALT 13 IU/L (10-60) 04/10/24 04:34 Alkaline Phosphatase 83 IU/L (42-121) 04/10/24 04:34 Total Creatine Kinase 77 IU/L (30-223) 04/09/24 12:27 Total Protein 6.0 g/dL (6.4-8.9) L 04/10/24 04:34 Albumin 3.6 g/dL (3.2-5.5) 04/10/24 04:34 Globulin 2.4 g/dL (2.1-4.2) 04/10/24 04:34 Albumin/Globulin Ratio 1.5 (1.0-2.2) 04/10/24 04:34 Lipase < 10 U/L (11-82) L 04/09/24 12:27 Vitamin B12 311 pg/mL (180-914) 04/10/24 09:05 Folate 21.5 ng/mL (5.90 - >24.8) 04/10/24 09:05 TSH 68.07 uIU/mL (0.34-5.60) H 04/09/24 12:27 Thyroxine (T4) 4.8 ug/dL (6.1-12.2) L 04/09/24 12:45 Free T3 pg/mL 3.20 pg/mL (2.5-3.9) 04/09/24 12:45 T3 Uptake 42 % (32-48) 04/09/24 12:45 Urine Color YELLOW 04/09/24 16:47 Urine Clarity CLEAR (CLEAR) 04/09/24 16:47 Urine pH 5.5 PH (5.0-7.5) 04/09/24 16:47 Ur Specific [place] >=1.030 (1.002-1.030) H 04/09/24 16:47 Urine Protein TRACE mg/dL (NEGATIVE) 04/09/24 16:47 Urine Glucose (UA) NEGATIVE mg/dL (NEGATIVE) 04/09/24 16:47 Urine Ketones NEGATIVE mg/dL (NEGATIVE) 04/09/24 16:47 Urine Occult Blood NEGATIVE (NEGATIVE) 04/09/24 16:47 Urine Nitrite NEGATIVE (NEGATIVE) 04/09/24 16:47 Urine Bilirubin NEGATIVE (NEGATIVE) 04/09/24 16:47 Urine Urobilinogen 0.2 (NORMAL) E.U./dL (NORMAL) 04/09/24 16:47 Ur Leukocyte Esterase NEGATIVE (NEGATIVE) 04/09/24 16:47 Ur Microscopic Review NOT INDICATED 04/09/24 16:47 Urine Culture Comments NOT INDICATED 04/09/24 16:47 Nasal Screen MRSA (PCR) NEGATIVE (NEGATIVE) 04/09/24 19:45 Salicylates < 1.5 mg/dL 04/09/24 12:27 Urine Opiates Screen NEGATIVE (NEGATIVE) 04/09/24 16:47 Ur Buprenorphine Scrn NEGATIVE (NEGATIVE) 04/09/24 16:47 Ur Oxycodone Screen NEGATIVE (NEGATIVE) 04/09/24 16:47 Urine Methadone Screen NEGATIVE (NEGATIVE) 04/09/24 16:47 Acetaminophen 0.2 ug/mL 04/09/24 12:27 Ur Barbiturates Screen NEGATIVE (NEGATIVE) 04/09/24 16:47 Ur Tricyclics Screen NEGATIVE (NEGATIVE) 04/09/24 16:47 Ur Phencyclidine Scrn NEGATIVE (NEGATIVE) 04/09/24 16:47 Ur Amphetamine Screen NEGATIVE (NEGATIVE) 04/09/24 16:47 U Methamphetamines Scrn POSITIVE (NEGATIVE) H 04/09/24 16:47 U Benzodiazepines Scrn NEGATIVE (NEGATIVE) 04/09/24 16:47 Urine Cocaine Screen POSITIVE (NEGATIVE) H 04/09/24 16:47 U Cannabinoids Screen POSITIVE (NEGATIVE) H 04/09/24 16:47 Ur Drug Screen Comment CUTOFF CONC BELOW: 04/09/24 16:47 Ethyl Alcohol < 10.0 mg/dL 04/09/24 12:27
--- NOTE | 2024-04-10 14:44 | PHARMACY PROGRESS NOTE ---
- Best Possible Medication History Admit Date and Time: 04/09/24 1836 Processed by: Pharmacy Medications reviewed in ED?: No Patient Interview: Pt unable to participate Secondary Source(s): Pharmacy records, Insurance records As the person ultimately responsible for medication therapy, providers are able to order a medication from an existing home medication list in [facility] via the "Reconcile Routine" prior to Confirmation of that medication by support associate. Such practice is discouraged except when the physician, in their clinical judgment, deems that a medical need exists for a medication without regard to previous use.
[2024-04-10] MEDS: MULTIVITAMIN 10 ML, THIAMINE INJ 100 MG, FOLIC ACID INJ 1 MG in SODIUM CHLORIDE 0.9% 1,... IV SCH (14:52)
[2024-04-10] MEDS: NALOXONE 0.4 MG/ML VIAL IVP STA (19:46)
[2024-04-10] MEDS: ONDANSETRON 4 MG/2 ML VIAL IVP PRN (19:55)
[2024-04-10 19:56] LABS: ABG BASE EXCESS -8.1 mmol/L (-2.0-3.0); ABG HCO3 21.5 mmol/L (22.0-26.0); ABG OXYGEN SATURATION 90 % (94-98); ABG PO2 60 mmHg (80-100); ABG TCO2 23.4 MMOL/L (21.0-29.0); ALLEN TEST POSITIVE
[2024-04-10 19:59] LABS: ABG PCO2 63 mmHg (34-45); ABG PH 7.15 (7.35-7.45)
[2024-04-10] MEDS ORDERED: LORazepam 2 MG/ML VIAL ONE (20:00)
[2024-04-10] MEDS ORDERED: MORPHINE 10 MG/ML VIAL IVP PRN (20:04)
[2024-04-10] MEDS: LORazepam 2 MG/ML VIAL IVP SCH (20:04)
[2024-04-10] MEDS ORDERED: IPRATROPIUM/ALBUTEROL 3 ML NEB INH PRN (20:10)
[2024-04-10] MEDS ORDERED: ROCURONIUM 50 MG/5 ML VIAL ONE (20:11)
[2024-04-10] MEDS ORDERED: ETOMIDATE 40 MG/20 ML VIAL IVP ONE (20:11)
[2024-04-10] MEDS: ETOMIDATE 40 MG/20 ML VIAL IVP ONE (20:27)
[2024-04-10] MEDS: ROCURONIUM 50 MG/5 ML VIAL IVP ONE (20:28)
[2024-04-10] MEDS: PROPOFOL 1000 MG/100 ML 1,000 MG/100 ML BOTTLE IV SCH (20:33)
--- NOTE | 2024-04-10 20:33 | PROVIDER PROGRESS NOTE ---
Cold Roller Note - Cold Roller Note Cold Roller Note: RN paged "68F Full code admitted to ICU for polypharmacy drug overdose. At 1900, patient O2 dropped to 70% and maintained there while on 15L nonrebreather. Patient lethargic, RR 10-12. Rapid response was called, after suctioning O2 is 90% however patient is lethargic, unable to clear secretions, seems to have trouble securing her airway. RT recommends intubation. Ch xray, labs, narcan, ABG done per protocol. Need order for intubation and central line. ED MD would perform the intubation. by serviceuser , [email or web address] at Apr 10, 2024, 7:58:46 PM" agree with intubation. vent order and sedation order placed. r/o infection. am labs. RN to update family [facility] Cold Roller
[2024-04-10 21:07] LABS: BASOPHILS % (AUTO) 0.4 %; HCT - HEMATOCRIT 34.1 % (37.0-47.0); HGB - HEMOGLOBIN 10.9 g/dL (12.0-16.0); LYMPHOCYTES % (AUTO) 3.9 %; MEAN CORPUSCULAR HEMOGLOBIN 33.1 pg (27.0-31.0); MEAN CORPUSCULAR VOLUME 103.6 fL (81.0-99.0); MEAN PLATELET VOLUME 9.3 fL (7.9-10.8); MONOCYTES % (AUTO) 4.8 %; NEUTROPHILS % (AUTO) 90.7 %; PLT - PLATELET COUNT 147 10^3/uL (130-450); RED BLOOD COUNT 3.29 10^6/uL (4.20-5.40); RED CELL DISTRIBUTION WIDTH 12.6 % (12.0-15.0); WHITE BLOOD COUNT 5.2 x10^3/uL (4.8-10.8)
[2024-04-10 21:14] LABS: SLIDE REVIEW? Indicated
[2024-04-10 21:15] LABS: ABNORMAL LYMPHS % (MANUAL) 0 %
--- NOTE | 2024-04-10 21:16 | ANESTHESIA PROCEDURE NOTE ---
Anesth Central Line Template - Central Line Central Line Preparation: Unable to obtain consent Central line location: Right IJ Central line type: Triple lumen Central line catheter tip site resides: [place], right Central line aftercare: Chlorhexidine disc placed, Secured, Placement confirmed, No pneumothorax, No complications, Bundle checklist complete, Pt tolerated well
[2024-04-10 21:41] LABS: BAND NEUTROPHILS % (MANUAL) 19 %; LYMPHOCYTES # (MANUAL) 0.1 10^3/uL (1.5-3.5); LYMPHOCYTES % (MANUAL) 2 %; MONOCYTES # (MANUAL) 0.5 10^3/uL (0.0-1.0); NEUTROPHILS # (MANUAL) 4.6 10^3/uL (1.5-6.6)
[2024-04-10 21:43] LABS: DIFFERENTIAL COMMENT MANUAL DIFFERENTIAL; PLATELET ESTIMATE, MANUAL NORMAL (130-450,000) (NORMAL); PLATELET MORPHOLOGY NORMAL APPEARANCE (NORMAL); RBC MORPHOLOGY (MULTIPLE) NORMAL APPEARANCE (NORMAL); WBC MORPHOLOGY (MULTIPLE) 1+ TOXIC GRANULATION (NORMAL)
[2024-04-10 21:45] LABS: ALBUMIN 3.1 g/dL (3.2-5.5); ALBUMIN/GLOBULIN RATIO 1.4 (1.0-2.2); BILIRUBIN,TOTAL 0.6 mg/dL (0.2-1.0); CALCIUM 8.3 mg/dL (8.5-10.3); CREATININE 0.5 mg/dL (0.6-1.3); POTASSIUM 4.2 mmol/L (3.5-4.5); TOTAL PROTEIN 5.3 g/dL (6.4-8.9)
--- NOTE | 2024-04-10 22:01 | XRAY Report ---
PROCEDURE: Chest for Line Placement INDICATIONS: Sudden difficulty breathing TECHNIQUE: One view of the chest was acquired. COMPARISON: 04/09/2024 FINDINGS: Surgical changes and devices: Endotracheal tube has been placed with distal tip projecting approxima tely 4.3 cm above the ann. Right central venous catheter tip projects in the lower SVC. Nasogastri c tube extends below the level of the diaphragm. Distal side-port appears to be slightly above the ga stroesophageal junction. Lungs and pleura: Diffuse interstitial prominence. Diffuse ill-defined consolidations of the right h emithorax with moderate-sized right pleural effusion. No pneumothorax. Left lung remains relatively c lear without new focal airspace consolidation. Mediastinum: Mediastinal contours appear normal. Heart size is normal. Bones and chest wall: No suspicious bony lesions. Overlying soft tissues appear unremarkable. IMPRESSION: Endotracheal tube tip projects approximately 4.3 cm above the ann. Tip of central venous catheter projects over the lower SVC. Distal side-port of the nasogastric tube appears to be slightly above the gastroesophageal junction. Recommend repositioning by advancing approximately 7 to 8 cm. Diffuse airspace disease of the right hemithorax with moderate right pleural effusion. No pneumothora x. Reviewed by: Ru Jennings MD on 04/10/2024 10:00 PM PDT Approved by: Ru Jennings MD on 04/10/2024 10:00 PM PDT Station ID: [id number]
[2024-04-10] MEDS: SODIUM CHLORIDE 0.9% 1,000 ML IV SCH (22:18)
[2024-04-10] MEDS: SODIUM CHLORIDE 0.9% 500 ML IV ONE (23:00)
[2024-04-10] MEDS: FAMOTIDINE 20 MG/2 ML VIAL IVP SCH (23:00)
[2024-04-10 23:23] LABS: ABG PCO2 35 mmHg (34-45); ABG PH 7.41 (7.35-7.45); ABG PO2 70 mmHg (80-100)
[2024-04-10 23:24] LABS: ABG BASE EXCESS -2.4 mmol/L (-2.0-3.0); ABG HCO3 21.7 mmol/L (22.0-26.0); ABG MODE OF VENTILATION ASSIST/CONTROL; ABG OXYGEN SATURATION 96 % (94-98); ABG TCO2 22.7 MMOL/L (21.0-29.0); ALLEN TEST POSITIVE
[2024-04-10 23:25] LABS: ABG RESPIRATORY RATE 18 b/min
--- NOTE | 2024-04-11 00:48 | ED Physician Documentation ---
ED Addendum - Addendum Addendum: 04/11/24 00:46 I was called to the bedside of the patient 04/10/2020 4 in the evening for intubation since she had some respiratory distress and has been desatting per staff educator. Intubation was performed with assistance of respiratory therapist with CMAC 3 and size 7 oh ET tube without difficulty. 15 mg of etomidate and 70 mg of rocuronium were used for rapid sequence intubation and patient was subsequently placed on a propofol drip. No complications. Confirmed placement by color change capnography, BL chest rise, air in the tube and cxr confirmation. OG tube placed at time of intubation, 55 at the lip. ET tube was 21 at the lip.
[2024-04-11] MEDS ORDERED: ROCURONIUM 50 MG/5 ML VIAL IVP ONE (00:50)
[2024-04-11] MEDS: NOREPINEPHRINE/0.9 % NS 8 MG/250 ML BAG IV SCH (04:18)
[2024-04-11 04:20] LABS: BASOPHILS % (AUTO) 0.8 %; HGB - HEMOGLOBIN 10.5 g/dL (12.0-16.0); LYMPHOCYTES % (AUTO) 18.8 %; MEAN CORPUSCULAR HEMOGLOBIN 33.9 pg (27.0-31.0); MEAN CORPUSCULAR HGB CONC 32.8 g/dL (32.0-36.0); MEAN CORPUSCULAR VOLUME 103.2 fL (81.0-99.0); MEAN PLATELET VOLUME 9.2 fL (7.9-10.8); MONOCYTES % (AUTO) 5.3 %; NEUTROPHILS % (AUTO) 74.3 %; PLT - PLATELET COUNT 147 10^3/uL (130-450); RED CELL DISTRIBUTION WIDTH 12.6 % (12.0-15.0)
[2024-04-11 04:29] LABS: CALCIUM, IONIZED 1.15 mmol/L (1.15-1.33); VBG PH 7.303 (7.31-7.41)
[2024-04-11 04:42] LABS: MAGNESIUM 1.5 mg/dL (1.7-2.3); POTASSIUM 3.9 mmol/L (3.5-4.5)
[2024-04-11] MEDS: ACETAMINOPHEN 1,000 MG/100 ML 1,000 MG/100 ML BAG IV PRN (04:42)
[2024-04-11 04:48] LABS: PHOSPHORUS 1.5 mg/dL (2.5-5.0)
[2024-04-11 05:07] LABS: WHITE BLOOD COUNT 1.3 x10^3/uL (4.8-10.8)
[2024-04-11 05:08] LABS: ABNORMAL LYMPHS % (MANUAL) 0 %
[2024-04-11 05:22] LABS: BAND NEUTROPHILS % (MANUAL) 56 %; LYMPHOCYTES # (MANUAL) 0.3 10^3/uL (1.5-3.5); LYMPHOCYTES % (MANUAL) 22 %; MONOCYTES # (MANUAL) 0.1 10^3/uL (0.0-1.0); PROMYELOCYTES % (MANUAL) 2 %
[2024-04-11 05:23] LABS: DIFFERENTIAL COMMENT MANUAL DIFFERENTIAL
[2024-04-11 05:27] LABS: NEUTROPHILS # (MANUAL) 0.9 10^3/uL (1.5-6.6)
[2024-04-11 05:47] LABS: ABG BASE EXCESS -4.8 mmol/L (-2.0-3.0); ABG HCO3 21.3 mmol/L (22.0-26.0); ABG OXYGEN SATURATION 93 % (94-98); ABG PCO2 44 mmHg (34-45); ABG PH 7.31 (7.35-7.45); ABG PO2 62 mmHg (80-100); ABG TCO2 22.7 MMOL/L (21.0-29.0); ALLEN TEST POSITIVE
[2024-04-11 05:48] LABS: ABG MODE OF VENTILATION ASSIST/CONTROL; ABG RESPIRATORY RATE 14 b/min
[2024-04-11] MEDS: PIPERACILLIN/TAZOBACTAM 3.375 GM in SODIUM CHLORIDE 0.9% MINIBAG 100 ML IV SCH (05:58)
[2024-04-11] MEDS: MAGNESIUM SULFATE 2 GRAM 2 GM/50 ML BAG IV ONE ×2 (06:42→18:37)
[2024-04-11] MEDS: POTASSIUM PHOSPHATE 21 MMOL in SODIUM CHLORIDE 0.9% 250 ML IV ONE (08:19)
[2024-04-11] MEDS: LEVOTHYROXINE 100 MCG VIAL IVP SCH (08:45)
--- NOTE | 2024-04-11 09:05 | PROVIDER PROGRESS NOTE ---
Assessment/Plan - Problem List (1) Acute hypoxemic respiratory failure Assessment/Plan: Patient is critically ill and currently requiring artificial life support with mechanical ventilation. Ventilator settings: Tidal volume 350 mL, PEEP 8 cm of water, Mode: Assist Control, RR 16, FiO2 40%. Continue supportive care mechanical ventilation. (2) Aspiration Pneumonia Conclusion/Plan: Patient has a large right lower lobe opacity most consistent with an aspiration event. Plan is to continue antibiotic coverage with Zosyn. (3) Toxic Encephalopathy Conclusion/Plan: Most likely related to polysubstance use with methamphetamine, cocaine, cannabis and highly likely to be related to opiate use given her clinical finding of pinpoint pupils and the fact that she does respond to treatment with Narcan. Plan: Continue to follow mental status. (3) Polysubstance abuse Conclusion/Plan: Urine drug screen is positive for methamphetamine, cocaine and cannabis. At this time I cannot exclude another substance such as fentanyl or other opiate. Patient does appear to respond to Narcan. Plan: Narcan as needed for obtundation. (4) Hypothyroidism Conclusion/Plan: Patient reportedly was taking levothyroxine as an outpatient but stopped months ago. Plan: Restart levothyroxine at 50 mcg IV daily and then start PO at 75 mcg daily once she is tolerating PO. She remains NPO at this time. (5) Leukopenia Conclusion/Plan: Most likely related to aspiration event. Continue to monitor CBC with diff. Critical care time spent reviewing the chart, reviewing lab results, reviewing imaging studies, examining the patient and writing orders: 35 minutes. - Current Meds Current Meds: Current Medications Generic Name Dose Route Start Last Admin Trade Name Isidro PRN Reason Stop Dose Admin Enoxaparin Sodium 40 mg 04/10/24 09:00 04/11/24 08:45 Enoxaparin 40 Mg/0.4 Ml Syringe SUBQ 40 mg DAILY SUSANNA Administration Famotidine 20 mg 04/10/24 21:00 04/11/24 08:45 Famotidine 20 Mg/2 Ml Vial IVP 20 mg BID SUSNANA Administration Potassium Chloride/Sodium Chloride 1,000 mls @ 100 mls/hr 04/09/24 21:00 04/11/24 04:43 Normal Saline 0.9% W/20 Meq Kcl IV Not Given .Q10H SUSANNA Multivitamins 10 ml/ Thiamine 1,011.2 mls @ 100 mls/hr 04/10/24 15:00 04/11/24 02:49 HCl 100 mg/ Folic Acid 1 mg/ IV Infused Sodium Chloride DAILY@1200 SUSANNA Infusion Sodium Chloride 1,000 mls @ 50 mls/hr 04/10/24 21:00 04/11/24 02:50 Normal Saline 0.9% IV Infused .Q20H SUSANNA Infusion NOREPINEPHRINE/0.9 % NS 8 mg in 250 mls @ 15 mls/hr 04/10/24 23:00 04/11/24 06:34 Levophed 8 Mg/250-0.9% Nacl IV 18 mcg/min .[id number] SUSANNA 33.75 mls/hr Titration Protocol 8 MCG/MIN Piperacillin Sod/Tazobactam 100 mls @ 25 mls/hr 04/11/24 05:00 04/11/24 05:58 Sod 3.375 gm/ Sodium Chloride IV 25 mls/hr Q8H SUSANNA Administration Acetaminophen 1,000 mg in 100 mls @ 400 mls/hr 04/11/24 04:20 04/11/24 04:42 Acetaminophen IV 400 mls/hr Q6HR PRN Administration FEVER > 100.5 F Potassium Phosphate 21 mmol/ 257 mls @ 64 mls/hr 04/11/24 08:00 04/11/24 08:19 Sodium Chloride IV 04/11/24 12:00 64 mls/hr ONCE ONE Administration Protocol Insulin Human Regular 1 - 5 unit 04/09/24 19:00 04/11/24 06:06 Insulin Regular, Human 300 Unit/3 Ml Pen SUBQ Not Given Q6HR [facility] Protocol Levothyroxine Sodium 50 mcg 04/11/24 09:00 04/11/24 08:45 Levothyroxine 100 Mcg Vial IVP 50 mcg DAILY SUSANNA Administration Naloxone HCl 2 mg 04/09/24 20:05 04/10/24 02:31 Naloxone 0.4 Mg/Ml Vial IVP 2 mg Q5MIN PRN Administration opiate overdose Ondansetron HCl 4 mg 04/09/24 18:35 04/10/24 19:55 Ondansetron 4 Mg/2 Ml Vial IVP 4 mg Q6HR PRN Administration Nausea / Vomiting Sodium Chloride 10 ml 04/10/24 01:00 04/11/24 08:48 Sodium Chloride Flush 0.9% 10 Ml Syringe IVP 10 ml 0100,0900,1700 [facility] Administration - Lab Result Fish Bone Diagrams: 04/11/24 04:09 04/11/24 14:12 - Additional Planning My Orders: My Active Orders 04/10/24 09:00 Enoxaparin [Lovenox] 40 mg SUBQ DAILY 04/10/24 15:00 Multivitamin [Infuvite] 10 ml Thiamine Inj [Vitamin B-1 Inj] 100 mg Folic Acid Inj [Folic Acid] 1 mg Sodium Chloride 0.9% [Normal Saline 0.9%] 1,000 ml IV DAILY@1200 04/11/24 08:00 Potassium Phosphate 21 mmol Sodium Chloride 0.9% [Normal Saline 0.9%] 250 ml IV ONCE 04/11/24 08:21 LORazepam INJ [Ativan Inj (Vial)] 2 mg IVP Q1HR PRN 04/11/24 08:38 Initial Ventilator Settings [RC] .ONCE 04/11/24 08:39 Ventilator Bundle [RC] Q8H Ventilator Care - ICU [RC] Q4HR 04/11/24 09:00 Levothyroxine Inj [Synthroid Inj] 50 mcg IVP DAILY Subjective - Subjective Patient Reports: Other (Patient required intubation status post aspiration event. She continues to have altered mental status.) Objective Vital Signs: Vital Signs - 24 hr 04/10/24 04/10/24 04/10/24 10:00 11:00 12:00 Temperature 36.6 C Heart Rate Heart Rate [ 78 86 87 Monitoring electrodes] Respiratory 14 13 20 Rate Blood Pressure 103/74 111/70 104/71 [Right Brachial artery] O2 Saturation 93 91 L 90 L If not protocol 3 3 6 : Oxygen Flow, liters/minute 04/10/24 04/10/24 04/10/24 13:00 14:00 15:00 Temperature 36.4 C L Heart Rate Heart Rate [ 92 93 93 Monitoring electrodes] Respiratory 12 12 17 Rate Blood Pressure 101/70 110/73 103/73 [Right Brachial artery] O2 Saturation 89 L 90 L 91 L If not protocol 6 10 10 : Oxygen Flow, liters/minute 04/10/24 04/10/24 04/10/24 16:00 17:00 18:00 Temperature Heart Rate Heart Rate [ 95 96 106 H Monitoring electrodes] Respiratory 13 15 10 L Rate Blood Pressure 103/63 96/56 L 105/67 [Right Brachial artery] O2 Saturation 92 93 90 L If not protocol 10 10 10 : Oxygen Flow, liters/minute 04/10/24 04/10/24 04/10/24 19:00 20:14 21:00 Temperature Heart Rate 109 H Heart Rate [ 98 124 H Monitoring electrodes] Respiratory 10 L 35 H Rate Blood Pressure 113/80 [Right Brachial artery] O2 Saturation 89 L If not protocol 15 : Oxygen Flow, liters/minute 04/10/24 04/10/24 04/10/24 21:05 22:09 23:06 Temperature Heart Rate Heart Rate [ 102 H 97 98 Monitoring electrodes] Respiratory 18 24 22 Rate Blood Pressure 89/66 L 82/64 L 79/56 L [Right Brachial artery] O2 Saturation 99 97 98 If not protocol : Oxygen Flow, liters/minute 04/10/24 04/11/24 04/11/24 23:35 00:10 01:06 Temperature Heart Rate 96 Heart Rate [ 102 H 105 H Monitoring electrodes] Respiratory 18 19 Rate Blood Pressure 91/61 87/60 L [Right Brachial artery] O2 Saturation 99 98 If not protocol : Oxygen Flow, liters/minute 04/11/24 04/11/24 04/11/24 01:25 02:26 02:30 Temperature Heart Rate 110 H Heart Rate [ 110 H Monitoring electrodes] Respiratory 14 Rate Blood Pressure 84/57 L 91/59 L [Right Brachial artery] O2 Saturation 98 If not protocol : Oxygen Flow, liters/minute 04/11/24 04/11/24 04/11/24 02:35 02:50 03:07 Temperature Heart Rate Heart Rate [ 114 H Monitoring electrodes] Respiratory 15 Rate Blood Pressure 91/60 92/61 92/60 [Right Brachial artery] O2 Saturation 99 If not protocol : Oxygen Flow, liters/minute 04/11/24 04/11/24 04/11/24 03:10 04:06 05:12 Temperature 39.1 C H Heart Rate 113 H Heart Rate [ 114 H 110 H Monitoring electrodes] Respiratory 15 15 Rate Blood Pressure 86/60 L 84/61 L [Right Brachial artery] O2 Saturation 97 98 If not protocol : Oxygen Flow, liters/minute 04/11/24 04/11/24 04/11/24 05:40 05:47 06:11 Temperature 37.9 C Heart Rate 103 H Heart Rate [ 102 H Monitoring electrodes] Respiratory 16 Rate Blood Pressure 87/58 L [Right Brachial artery] O2 Saturation 98 If not protocol : Oxygen Flow, liters/minute 04/11/24 04/11/24 04/11/24 06:15 06:32 06:45 Temperature Heart Rate Heart Rate [ Monitoring electrodes] Respiratory Rate Blood Pressure 106/69 89/59 L 93/62 [Right Brachial artery] O2 Saturation If not protocol : Oxygen Flow, liters/minute 04/11/24 04/11/24 04/11/24 06:50 06:58 07:03 Temperature 36.4 C L Heart Rate 96 Heart Rate [ 97 Monitoring electrodes] Respiratory 16 Rate Blood Pressure 96/61 [Right Brachial artery] O2 Saturation 97 If not protocol : Oxygen Flow, liters/minute 04/11/24 04/11/24 08:00 08:36 Temperature 37.3 C Heart Rate 96 Heart Rate [ 95 Monitoring electrodes] Respiratory 16 Rate Blood Pressure 92/63 [Right Brachial artery] O2 Saturation 98 If not protocol : Oxygen Flow, liters/minute Oxygen O2 Source Mechanical ventilator Oxygen Flow Rate 3 I&O (Last 24 Hrs): Intake and Output Totals x24h 04/09/24 04/10/24 04/11/24 23:59 23:59 23:59 Intake Total 2215.2 4017.551 5428.489 Output Total 0 155 535 Balance 2215.2 1664.488 780.489 General: Other HEENT: Atraumatic Neck: Supple Lymphatic: no adenopathy Neuro: Alert, Non Focal Cardiovascular: Other Respiratory: Other Abdomen: Other Extremities: No cyanosis, No edema Skin: No rashes - Results Results: Laboratory Results WBC 1.3 x10^3/uL (4.8-10.8) L* 04/11/24 04:09 RBC 3.10 10^6/uL (4.20-5.40) L 04/11/24 04:09 Hgb 10.5 g/dL (12.0-16.0) L 04/11/24 04:09 Hct 32.0 % (37.0-47.0) L 04/11/24 04:09 MCV 103.2 fL (81.0-99.0) H 04/11/24 04:09 MCH 33.9 pg (27.0-31.0) H 04/11/24 04:09 MCHC 32.8 g/dL (32.0-36.0) 04/11/24 04:09 RDW 12.6 % (12.0-15.0) 04/11/24 04:09 Plt Count 147 10^3/uL (130-450) 04/11/24 04:09 MPV 9.2 fL (7.9-10.8) 04/11/24 04:09 Neut # (Auto) Not Reportable 04/11/24 04:09 Lymph # (Auto) Not Reportable 04/11/24 04:09 Boyd # (Auto) Not Reportable 04/11/24 04:09 Eos # (Auto) Not Reportable 04/11/24 04:09 Baso # (Auto) Not Reportable 04/11/24 04:09 Absolute Nucleated RBC Not Reportable 04/11/24 04:09 Total Counted 100 04/11/24 04:09 Band Neuts % (Manual) 56 % (0-10) H 04/11/24 04:09 Abnorm Lymph % (Manual) 0 % 04/11/24 04:09 Promyelocytes % 2 % (-0) H 04/11/24 04:09 Nucleated RBC % Not Reportable 04/11/24 04:09 Neutrophils # (Manual) 0.9 10^3/uL (1.5-6.6) L 04/11/24 04:09 Lymphocytes # (Manual) 0.3 10^3/uL (1.5-3.5) L 04/11/24 04:09 Monocytes # (Manual) 0.1 10^3/uL (0.0-1.0) 04/11/24 04:09 Eosinophils # (Manual) 0.0 10^3/uL (0-0.7) 04/11/24 04:09 Basophils # (Manual) 0.0 10^3/uL (0-0.1) 04/11/24 04:09 Differential Comment MANUAL DIFFERENTIAL 04/11/24 04:09 Manual Slide Review Indicated 04/10/24 20:55 WBC Morphology 2+ VACUOLATION (NORMAL) 2+ DOHLE BODIES (NORMAL) 04/11/24 04:09 WBC Morphology 2+ VACUOLATION (NORMAL) 2+ DOHLE BODIES (NORMAL) 04/11/24 04:09 Platelet Estimate NORMAL (130-450,000) (NORMAL) 04/10/24 20:55 Platelet Morphology NORMAL APPEARANCE (NORMAL) 04/10/24 20:55 RBC Morph Micro Appear NORMAL APPEARANCE (NORMAL) 04/10/24 20:55 Bld Gas Analysis Time 05:42 04/11/24 05:37 Sample Site RIGHT RADIAL 04/11/24 05:37 ABG pH 7.31 (7.35-7.45) L 04/11/24 05:37 ABG pCO2 44 mmHg (34-45) 04/11/24 05:37 ABG pO2 62 mmHg (80-100) L 04/11/24 05:37 ABG HCO3 21.3 mmol/L (22.0-26.0) L 04/11/24 05:37 ABG Total CO2 22.7 MMOL/L (21.0-29.0) 04/11/24 05:37 ABG O2 Saturation 93 % (94-98) L 04/11/24 05:37 ABG Base Excess -4.8 mmol/L (-2.0-3.0) L 04/11/24 05:37 [place] Test POSITIVE 04/11/24 05:37 VBG pH 7.303 (7.31-7.41) L 04/11/24 04:09 VBG pCO2 50.0 mmHg (41-51) 04/09/24 16:48 VBG pO2 139.1 mmHg (25-47) H 04/09/24 16:48 VBG HCO3 19.2 mmol/L (23-28) L 04/09/24 16:48 VBG Total CO2 20.8 mmol/L (24-29) L 04/09/24 16:48 VBG O2 Saturation 98.2 % (60-80) H 04/09/24 16:48 VBG Base Excess -8.8 mmol/L (-2 - +2) L 04/09/24 16:48 Ionized Calcium 1.15 mmol/L (1.15-1.33) 04/11/24 04:09 Respiration Rate 14 b/min 04/11/24 05:37 O2 Delivery Device VENTILATOR 04/11/24 05:37 O2 Liters/Min 15.00 LPM 04/10/24 19:38 Vent Mode ASSIST/CONTROL 04/11/24 05:37 FiO2 80.00 04/11/24 05:37 Tidal Volume 350 mL 04/11/24 05:37 PEEP 8 cmH2O 04/11/24 05:37 Sodium 136 mmol/L (135-145) 04/10/24 20:55 Potassium 3.9 mmol/L (3.5-4.5) 04/11/24 04:09 Chloride 107 mmol/L (101-111) 04/10/24 20:55 Carbon Dioxide 24 mmol/L (21-32) 04/10/24 20:55 Anion Gap 5.0 (6-13) L 04/10/24 20:55 BUN 11 mg/dL (6-20) 04/10/24 20:55 Creatinine 0.5 mg/dL (0.6-1.3) L 04/10/24 20:55 Estimated GFR (MDRD) 123 (>89) 04/10/24 20:55 Glucose 122 mg/dL (74-104) H 04/10/24 20:55 POC Whole Bld Glucose 97 mg/dL (70 - 100) 04/11/24 06:03 Lactic Acid 0.8 mmol/L (0.5-2.2) 04/11/24 04:09 Calcium 8.3 mg/dL (8.5-10.3) L 04/10/24 20:55 Phosphorus 1.5 mg/dL (2.5-5.0) L 04/11/24 04:09 Magnesium 1.5 mg/dL (1.7-2.3) L 04/11/24 04:09 Total Bilirubin 0.6 mg/dL (0.2-1.0) 04/10/24 20:55 AST 20 IU/L (10-42) 04/10/24 20:55 ALT 11 IU/L (10-60) 04/10/24 20:55 Alkaline Phosphatase 59 IU/L (42-121) 04/10/24 20:55 Total Creatine Kinase 77 IU/L (30-223) 04/09/24 12:27 Troponin I High Sens 9.3 ng/L (2.3-14.8) 04/10/24 20:55 B-Natriuretic Peptide 689 pg/mL (5-100) H 04/10/24 20:55 Total Protein 5.3 g/dL (6.4-8.9) L 04/10/24 20:55 Albumin 3.1 g/dL (3.2-5.5) L 04/10/24 20:55 Globulin 2.2 g/dL (2.1-4.2) 04/10/24 20:55 Albumin/Globulin Ratio 1.4 (1.0-2.2) 04/10/24 20:55 Lipase < 10 U/L (11-82) L 04/09/24 12:27 Vitamin B12 311 pg/mL (180-914) 04/10/24 09:05 Folate 21.5 ng/mL (5.90 - >24.8) 04/10/24 09:05 TSH 68.07 uIU/mL (0.34-5.60) H 04/09/24 12:27 Thyroxine (T4) 4.8 ug/dL (6.1-12.2) L 04/09/24 12:45 Free T3 pg/mL 3.20 pg/mL (2.5-3.9) 04/09/24 12:45 T3 Uptake 42 % (32-48) 04/09/24 12:45 Urine Color YELLOW 04/09/24 16:47 Urine Clarity CLEAR (CLEAR) 04/09/24 16:47 Urine pH 5.5 PH (5.0-7.5) 04/09/24 16:47 Ur Specific [place] >=1.030 (1.002-1.030) H 04/09/24 16:47 Urine Protein TRACE mg/dL (NEGATIVE) 04/09/24 16:47 Urine Glucose (UA) NEGATIVE mg/dL (NEGATIVE) 04/09/24 16:47 Urine Ketones NEGATIVE mg/dL (NEGATIVE) 04/09/24 16:47 Urine Occult Blood NEGATIVE (NEGATIVE) 04/09/24 16:47 Urine Nitrite NEGATIVE (NEGATIVE) 04/09/24 16:47 Urine Bilirubin NEGATIVE (NEGATIVE) 04/09/24 16:47 Urine Urobilinogen 0.2 (NORMAL) E.U./dL (NORMAL) 04/09/24 16:47 Ur Leukocyte Esterase NEGATIVE (NEGATIVE) 04/09/24 16:47 Ur Microscopic Review NOT INDICATED 04/09/24 16:47 Urine Culture Comments NOT INDICATED 04/09/24 16:47 Nasal Screen MRSA (PCR) NEGATIVE (NEGATIVE) 04/09/24 19:45 Salicylates < 1.5 mg/dL 04/09/24 12:27 Urine Opiates Screen NEGATIVE (NEGATIVE) 04/09/24 16:47 Ur Buprenorphine Scrn NEGATIVE (NEGATIVE) 04/09/24 16:47 Ur Oxycodone Screen NEGATIVE (NEGATIVE) 04/09/24 16:47 Urine Methadone Screen NEGATIVE (NEGATIVE) 04/09/24 16:47 Acetaminophen 0.2 ug/mL 04/09/24 12:27 Ur Barbiturates Screen NEGATIVE (NEGATIVE) 04/09/24 16:47 Ur Tricyclics Screen NEGATIVE (NEGATIVE) 04/09/24 16:47 Ur Phencyclidine Scrn NEGATIVE (NEGATIVE) 04/09/24 16:47 Ur Amphetamine Screen NEGATIVE (NEGATIVE) 04/09/24 16:47 U Methamphetamines Scrn POSITIVE (NEGATIVE) H 04/09/24 16:47 U Benzodiazepines Scrn NEGATIVE (NEGATIVE) 04/09/24 16:47 Urine Cocaine Screen POSITIVE (NEGATIVE) H 04/09/24 16:47 U Cannabinoids Screen POSITIVE (NEGATIVE) H 04/09/24 16:47 Ur Drug Screen Comment CUTOFF CONC BELOW: 04/09/24 16:47 Ethyl Alcohol < 10.0 mg/dL 04/09/24 12:27
[2024-04-11] MEDS ORDERED: MULTIVITAMIN 10 ML, THIAMINE INJ 100 MG, FOLIC ACID INJ 1 MG in SODIUM CHLORIDE 0.9% 1,... IV SCH (12:00)
[2024-04-11 14:18] LABS: CALCIUM, IONIZED 1.12 mmol/L (1.15-1.33); VBG PH 7.31 (7.31-7.41)
[2024-04-11 14:32] LABS: MAGNESIUM 1.7 mg/dL (1.7-2.3); PHOSPHORUS 2.6 mg/dL (2.5-5.0); POTASSIUM 4.1 mmol/L (3.5-4.5)
[2024-04-11] MEDS: LORazepam 2 MG/ML VIAL IVP PRN (20:05)
[2024-04-11] MEDS: NS W/20 MEQ KCL 1,000 ML IV SCH (21:54)
[2024-04-12 05:07] LABS: BASOPHILS % (AUTO) 0.2 %; HCT - HEMATOCRIT 29.9 % (37.0-47.0); HGB - HEMOGLOBIN 9.9 g/dL (12.0-16.0); LYMPHOCYTES % (AUTO) 4.3 %; MEAN CORPUSCULAR HEMOGLOBIN 33.3 pg (27.0-31.0); MEAN CORPUSCULAR HGB CONC 33.1 g/dL (32.0-36.0); MEAN CORPUSCULAR VOLUME 100.7 fL (81.0-99.0); MEAN PLATELET VOLUME 9.6 fL (7.9-10.8); MONOCYTES % (AUTO) 4.7 %; NEUTROPHILS % (AUTO) 88.4 %; PLT - PLATELET COUNT 172 10^3/uL (130-450); RED BLOOD COUNT 2.97 10^6/uL (4.20-5.40); RED CELL DISTRIBUTION WIDTH 12.9 % (12.0-15.0); WHITE BLOOD COUNT 11.8 x10^3/uL (4.8-10.8)
[2024-04-12 05:25] LABS: CALCIUM, IONIZED 1.12 mmol/L (1.15-1.33); VBG PH 7.383 (7.31-7.41)
[2024-04-12 05:26] LABS: PARTIAL THROMBOPLASTIN TIME 31.5 secs (24.9-33.3)
[2024-04-12 05:30] LABS: INR 1.4 (0.8-1.2); PT - PROTHROMBIN TIME 14.8 secs (9.9-12.6)
[2024-04-12 05:32] LABS: ALBUMIN 2.6 g/dL (3.2-5.5); ALBUMIN/GLOBULIN RATIO 1.2 (1.0-2.2); BILIRUBIN,TOTAL 0.4 mg/dL (0.2-1.0); CALCIUM 8.3 mg/dL (8.5-10.3); CREATININE 0.5 mg/dL (0.6-1.3); MAGNESIUM 1.8 mg/dL (1.7-2.3); PHOSPHORUS 1.4 mg/dL (2.5-5.0); POTASSIUM 3.7 mmol/L (3.5-4.5); TOTAL PROTEIN 4.8 g/dL (6.4-8.9)
[2024-04-12 05:49] LABS: ABNORMAL LYMPHS % (MANUAL) 0 %; BAND NEUTROPHILS % (MANUAL) 0 %
[2024-04-12] MEDS: MAGNESIUM SULFATE 2 GRAM 2 GM/50 ML BAG IV ONE ×2 (06:28→18:04)
[2024-04-12 07:26] LABS: DIFFERENTIAL COMMENT MANUAL DIFFERENTIAL; LYMPHOCYTES % (MANUAL) 11 %; MONOCYTES # (MANUAL) 2.2 10^3/uL (0.0-1.0); NEUTROPHILS # (MANUAL) 7.6 10^3/uL (1.5-6.6); PLATELET ESTIMATE, MANUAL NORMAL (130-450,000) (NORMAL); PLATELET MORPHOLOGY M (NORMAL); REACTIVE LYMPHS % (MANUAL) 6 %
[2024-04-12] MEDS ORDERED: ZINC OXIDE 12% OINT 57 GM TUBE TOP PRN (07:52)
[2024-04-12] MEDS: POTASSIUM PHOSPHATE 21 MMOL in SODIUM CHLORIDE 0.9% 250 ML IV ONE (08:00)
[2024-04-12] MEDS: polyethylene glycoL 3350 17 GM PACKET PO SCH (08:34)
[2024-04-12] MEDS: CHLORHEXIDINE GLUCONATE 15 ML UDC PO SCH (11:19)
--- NOTE | 2024-04-12 11:28 | XRAY Report ---
PROCEDURE: Chest 1V INDICATIONS: Intubated for respiratory failure TECHNIQUE: One view of the chest was acquired. COMPARISON: Chest radiograph 04/10/2024, 04/09/2024. FINDINGS: Surgical changes and devices: Endotracheal tube tip projects 2.2 cm above the ann. Enteric tube c ourses below the diaphragm with distal tip not visualized. Right internal jugular central venous cath eter with tip projecting over the right atrium. Lungs and pleura: Small right pleural effusion persists with subjacent atelectasis. Additional opaci ties are seen in the right upper and mid lung, not significantly changed compared to prior. Left lung is clear without focal airspace consolidation. Mediastinum: Mediastinal contours appear normal. Heart size is normal. Bones and chest wall: No suspicious bony lesions. Overlying soft tissues appear unremarkable. IMPRESSION: Endotracheal tube projects approximately 2.2 cm above the ann. Interval advancement of enteric tube, which courses courses below the diaphragm with side port projec ting near the GE junction. Consider advancement by 5 to 10 cm. Persistent small right pleural effusion and adjacent right lung opacities. Findings are not significantly changed from preliminary interpretation provided by [facility]. Reviewed by: Odette Crain MD, PhD on 04/12/2024 10:27 AM [facility] Approved by: Odette Crain MD, PhD on 04/12/2024 10:27 AM [facility] Station ID: [id number]
[2024-04-12] MEDS: LORazepam 2 MG/ML VIAL IVP PRN (13:18)
[2024-04-12 16:36] LABS: VBG PH 7.471 (7.31-7.41)
[2024-04-12 16:37] LABS: CALCIUM, IONIZED 1.11 mmol/L (1.15-1.33)
[2024-04-12 16:47] LABS: MAGNESIUM 1.8 mg/dL (1.7-2.3); PHOSPHORUS 1.1 mg/dL (2.5-5.0)
[2024-04-12] MEDS ORDERED: SODIUM CHLORIDE 0.9% 250 ML IV ONE (17:35)
--- NOTE | 2024-04-12 18:08 | PROVIDER PROGRESS NOTE ---
Assessment/Plan - Problem List (1) Acute hypoxemic respiratory failure Assessment/Plan: Patient is critically ill and currently requiring artificial life support with mechanical ventilation. Ventilator settings: Tidal volume 350 mL, PEEP 8 cm of water, Mode: Assist Control, RR 16, FiO2 40%. Continue supportive care mechanical ventilation. Although patient's mental status has improved, she continues to have periods of significant somnolence and she has copious secretions. Consider breathing trial in the morning. (2) Aspiration Pneumonia Conclusion/Plan: Patient has a large right lower lobe opacity most consistent with an aspiration event. Plan is to continue antibiotic coverage with Zosyn. 1 set of blood cultures grew out Streptococcus pneumonia however, patient had a aspiration event and most likely changes on her chest x-ray represent a polymicrobial process secondary to aspiration. Continue Zosyn. (3) Toxic Encephalopathy Conclusion/Plan: Most likely related to polysubstance use with methamphetamine, cocaine, cannabis and highly likely to be related to opiate use given her clinical finding of pinp oint pupils and the fact that she does respond to treatment with Narcan. Plan: Continue to follow mental status. (3) Polysubstance abuse Conclusion/Plan: Urine drug screen is positive for methamphetamine, cocaine and cannabis. At this time I cannot exclude another substance such as fentanyl or other opiate. Patient does appear to respond to Narcan. Plan: Narcan as needed for obtundation. (4) Hypothyroidism Conclusion/Plan: Patient reportedly was taking levothyroxine as an outpatient but stopped months ago. Plan: Restart levothyroxine at 50 mcg IV daily and then start PO at 75 mcg daily once she is tolerating PO. She remains NPO at this time. (5) Leukopenia Conclusion/Plan: Resolved. Critical care time spent reviewing the chart, reviewing lab results, reviewing imaging studies, examining the patient and writing orders: 31 minutes. - Current Meds Current Meds: Current Medications Generic Name Dose Route Start Last Admin Trade Name Freq PRN Reason Stop Dose Admin Chlorhexidine Gluconate 15 ml 04/12/24 10:00 04/12/24 11:19 Chlorhexidine Gluconate 15 Ml Udc PO 15 ml BID SUSANNA Administration Enoxaparin Sodium 40 mg 04/10/24 09:00 04/12/24 08:34 Enoxaparin 40 Mg/0.4 Ml Syringe SUBQ 40 mg DAILY SUSANNA Administration Famotidine 20 mg 04/10/24 21:00 04/12/24 08:34 Famotidine 20 Mg/2 Ml Vial IVP 20 mg BID SUSANNA Administration NOREPINEPHRINE/0.9 % NS 8 mg in 250 mls @ 15 mls/hr 04/10/24 23:00 04/12/24 12:45 Levophed 8 Mg/250-0.9% Nacl IV 0 mcg/min .[id number] SUSANNA 0 mls/hr Titration Protocol 8 MCG/MIN Piperacillin Sod/Tazobactam 100 mls @ 25 mls/hr 04/11/24 05:00 04/12/24 16:50 Sod 3.375 gm/ Sodium Chloride IV Infused Q8H SUSANNA Infusion Acetaminophen 1,000 mg in 100 mls @ 400 mls/hr 04/11/24 04:20 04/12/24 16:40 Acetaminophen IV Infused Q6HR PRN Infusion FEVER > 100.5 F Potassium Chloride/Sodium Chloride 1,000 mls @ 100 mls/hr 04/11/24 22:00 04/12/24 11:19 Normal Saline 0.9% W/20 Meq Kcl IV 100 mls/hr .Q10H SUSANNA Administration Magnesium Sulfate 2 gm in 50 mls @ 50 mls/hr 04/12/24 17:56 04/12/24 18:04 Magnesium Sulfate IV 04/12/24 18:55 50 mls/hr ONCE ONE Administration Protocol Insulin Human Regular 1 - 5 unit 04/09/24 19:00 04/12/24 12:03 Insulin Regular, Human 300 Unit/3 Ml Pen SUBQ Not Given Q6HR [facility] Protocol Lorazepam 1 mg 04/12/24 02:53 04/12/24 13:18 Lorazepam 2 Mg/Ml Vial IVP 04/13/24 02:52 1 mg ONCE PRN Administration Agitation Naloxone HCl 2 mg 04/09/24 20:05 04/10/24 02:31 Naloxone 0.4 Mg/Ml Vial IVP 2 mg Q5MIN PRN Administration opiate overdose Ondansetron HCl 4 mg 04/09/24 18:35 04/10/24 19:55 Ondansetron 4 Mg/2 Ml Vial IVP 4 mg Q6HR PRN Administration Nausea / Vomiting Polyethylene Glycol 17 gm 04/12/24 09:00 04/12/24 08:34 Polyethylene Glycol 3350 17 Gm Packet PO 17 gm DAILY SUSANNA Administration Sodium Chloride 10 ml 04/10/24 01:00 04/12/24 17:54 Sodium Chloride Flush 0.9% 10 Ml Syringe IVP 10 ml 0100,0900,1700 SUSANNA Administration - Lab Result Fish Bone Diagrams: 04/12/24 04:35 04/12/24 16:24 - Additional Planning My Orders: My Active Orders 04/11/24 19:15 NonViolent Restraint(s) Q24H 04/11/24 22:00 Ns W/20 Meq KCl [Normal Saline 0.9% W/20 Meq KCl] 1,000 ml IV 100 mls/hr 04/12/24 07:52 Zinc Oxide [Isaac Protect] 1 applic TOP PRN PRN 04/12/24 09:00 polyethylene glycoL 3350 [Miralax] 17 gm PO DAILY 04/12/24 10:00 Chlorhexidine [Peridex] 15 ml PO BID 04/12/24 17:25 Sodium Phosphate 21 mmol Sodium Chloride 0.9% [Normal Saline 0.9%] 250 ml IV ONCE 04/12/24 17:56 Magnesium Sulfate 2 Gram [Magnesium Sulfate] 2 gm in 50 ml IV ONCE 04/12/24 19:00 Calcium Gluc 1,000Mg/50Ml-NaCl 1,000 mg in 50 ml IV ONCE 04/13/24 07:00 Levothyroxine [Synthroid] 75 mcg PO QDAC 04/13/24 09:00 Multivitamin W/Minerals Liq [Centrum] 15 ml PO DAILY Subjective - Subjective Patient Reports: Other (Intubated and sedated. Following some commands.) Objective Vital Signs: Vital Signs - 24 hr 04/11/24 04/11/24 04/11/24 19:00 19:01 20:12 Temperature Heart Rate 102 H Heart Rate [ 103 H 109 H Monitoring electrodes] Respiratory 17 Rate Blood Pressure 95/67 110/70 [Right Brachial artery] O2 Saturation 99 100 04/11/24 04/11/24 04/11/24 20:47 21:08 21:15 Temperature 37.2 C Heart Rate 106 H Heart Rate [ 104 H Monitoring electrodes] Respiratory 17 Rate Blood Pressure 92/66 [Right Brachial artery] O2 Saturation 100 04/11/24 04/11/24 04/11/24 22:07 23:02 23:31 Temperature Heart Rate 114 H Heart Rate [ 109 H 109 H Monitoring electrodes] Respiratory Rate Blood Pressure 101/66 98/68 [Right Brachial artery] O2 Saturation 99 100 04/12/24 04/12/24 04/12/24 00:15 01:32 02:03 Temperature Heart Rate Heart Rate [ 114 H 116 H 119 H Monitoring electrodes] Respiratory Rate Blood Pressure 99/66 99/70 100/67 [Right Brachial artery] O2 Saturation 99 99 98 04/12/24 04/12/24 04/12/24 02:17 02:56 03:04 Temperature 38.1 C H Heart Rate 113 H Heart Rate [ 107 H Monitoring electrodes] Respiratory Rate Blood Pressure 90/62 [Right Brachial artery] O2 Saturation 99 04/12/24 04/12/24 04/12/24 04:00 05:12 05:22 Temperature Heart Rate 97 Heart Rate [ 98 104 H Monitoring electrodes] Respiratory Rate Blood Pressure 99/85 H 102/61 [Right Brachial artery] O2 Saturation 99 100 04/12/24 04/12/24 04/12/24 06:00 07:02 07:24 Temperature Heart Rate 98 Heart Rate [ 93 93 Monitoring electrodes] Respiratory 18 17 Rate Blood Pressure 93/68 103/63 [Right Brachial artery] O2 Saturation 100 99 04/12/24 04/12/24 04/12/24 08:00 09:00 10:00 Temperature 37.1 C Heart Rate 98 Heart Rate [ 102 H 97 103 H Monitoring electrodes] Respiratory 20 19 19 Rate Blood Pressure 90/61 93/66 94/66 [Right Brachial artery] O2 Saturation 96 98 100 04/12/24 04/12/24 04/12/24 11:00 11:12 12:00 Temperature 37.1 C Heart Rate 104 H Heart Rate [ 102 H 107 H Monitoring electrodes] Respiratory 22 20 Rate Blood Pressure 95/69 95/71 [Right Brachial artery] O2 Saturation 97 98 04/12/24 04/12/24 04/12/24 13:00 13:24 14:00 Temperature Heart Rate 110 H Heart Rate [ 112 H 110 H Monitoring electrodes] Respiratory 19 21 Rate Blood Pressure 109/71 102/71 [Right Brachial artery] O2 Saturation 96 95 04/12/24 04/12/24 04/12/24 15:00 15:49 16:00 Temperature 38.1 C H Heart Rate 114 H Heart Rate [ 113 H 112 H Monitoring electrodes] Respiratory 24 23 Rate Blood Pressure 97/71 103/70 [Right Brachial artery] O2 Saturation 96 96 04/12/24 04/12/24 17:00 18:00 Temperature Heart Rate Heart Rate [ 109 H 106 H Monitoring electrodes] Respiratory 23 18 Rate Blood Pressure 95/66 83/58 L [Right Brachial artery] O2 Saturation 97 96 Oxygen O2 Source Mechanical ventilator Oxygen Flow Rate 3 I&O (Last 24 Hrs): Intake and Output Totals x24h 04/10/24 04/11/24 04/12/24 23:59 23:59 23:59 Intake Total 7559.171 1368.027 2646.126 Output Total 155 1405 1475 Balance 7728.539 1355.027 1171.126 General: Alert, Oriented x3 Neck: No JVD Neuro: Alert Cardiovascular: Other (Positive S1-S2 no extra heart sounds.) Respiratory: Other (Good air exchange in all lung sanchez no wheezing no crackles) Abdomen: Other (Soft nontender nondistended positive bowel sounds.) Extremities: No cyanosis, Other (Mild pedal edema.) Skin: No rashes - Results Results: Laboratory Results WBC 11.8 x10^3/uL (4.8-10.8) H 04/12/24 04:35 RBC 2.97 10^6/uL (4.20-5.40) L 04/12/24 04:35 Hgb 9.9 g/dL (12.0-16.0) L 04/12/24 04:35 Hct 29.9 % (37.0-47.0) L 04/12/24 04:35 MCV 100.7 fL (81.0-99.0) H 04/12/24 04:35 MCH 33.3 pg (27.0-31.0) H 04/12/24 04:35 MCHC 33.1 g/dL (32.0-36.0) 04/12/24 04:35 RDW 12.9 % (12.0-15.0) 04/12/24 04:35 Plt Count 172 10^3/uL (130-450) 04/12/24 04:35 MPV 9.6 fL (7.9-10.8) 04/12/24 04:35 Neut # (Auto) Not Reportable 04/12/24 04:35 Lymph # (Auto) Not Reportable 04/12/24 04:35 [place] # (Auto) Not Reportable 04/12/24 04:35 Eos # (Auto) Not Reportable 04/12/24 04:35 Baso # (Auto) Not Reportable 04/12/24 04:35 Absolute Nucleated RBC Not Reportable 04/12/24 04:35 Total Counted 100 04/12/24 04:35 Band Neuts % (Manual) 0 % (0-10) 04/12/24 04:35 Reactive Lymphs % (Man) 6 % 04/12/24 04:35 Abnorm Lymph % (Manual) 0 % 04/12/24 04:35 Promyelocytes % 2 % (-0) H 04/11/24 04:09 Nucleated RBC % Not Reportable 04/12/24 04:35 Neutrophils # (Manual) 7.6 10^3/uL (1.5-6.6) H 04/12/24 04:35 Lymphocytes # (Manual) 2.0 10^3/uL (1.5-3.5) 04/12/24 04:35 Monocytes # (Manual) 2.2 10^3/uL (0.0-1.0) H 04/12/24 04:35 Eosinophils # (Manual) 0.0 10^3/uL (0-0.7) 04/12/24 04:35 Basophils # (Manual) 0.0 10^3/uL (0-0.1) 04/12/24 04:35 Differential Comment MANUAL DIFFERENTIAL 04/12/24 04:35 Manual Slide Review Indicated 04/10/24 20:55 WBC Morphology 2+ VACUOLATION (NORMAL) 2+ DOHLE BODIES (NORMAL) 04/11/24 04:09 WBC Morphology 2+ VACUOLATION (NORMAL) 2+ DOHLE BODIES (NORMAL) 04/11/24 04:09 Platelet Estimate NORMAL (130-450,000) (NORMAL) 04/12/24 04:35 Platelet Morphology M (NORMAL) 04/12/24 04:35 RBC Morph Micro Appear NORMAL APPEARANCE (NORMAL) 04/10/24 20:55 PT 14.8 secs (9.9-12.6) H 04/12/24 04:35 INR 1.4 (0.8-1.2) H 04/12/24 04:35 APTT 31.5 secs (24.9-33.3) 04/12/24 04:35 Bld Gas Analysis Time 05:42 04/11/24 05:37 Sample Site RIGHT RADIAL 04/11/24 05:37 ABG pH 7.31 (7.35-7.45) L 04/11/24 05:37 ABG pCO2 44 mmHg (34-45) 04/11/24 05:37 ABG pO2 62 mmHg (80-100) L 04/11/24 05:37 ABG HCO3 21.3 mmol/L (22.0-26.0) L 04/11/24 05:37 ABG Total CO2 22.7 MMOL/L (21.0-29.0) 04/11/24 05:37 ABG O2 Saturation 93 % (94-98) L 04/11/24 05:37 ABG Base Excess -4.8 mmol/L (-2.0-3.0) L 04/11/24 05:37 [place] Test POSITIVE 04/11/24 05:37 VBG pH 7.471 (7.31-7.41) H 04/12/24 16:24 VBG pCO2 50.0 mmHg (41-51) 04/09/24 16:48 VBG pO2 139.1 mmHg (25-47) H 04/09/24 16:48 VBG HCO3 19.2 mmol/L (23-28) L 04/09/24 16:48 VBG Total CO2 20.8 mmol/L (24-29) L 04/09/24 16:48 VBG O2 Saturation 98.2 % (60-80) H 04/09/24 16:48 VBG Base Excess -8.8 mmol/L (-2 - +2) L 04/09/24 16:48 Ionized Calcium 1.11 mmol/L (1.15-1.33) L 04/12/24 16:24 Respiration Rate 14 b/min 04/11/24 05:37 O2 Delivery Device VENTILATOR 04/11/24 05:37 O2 Liters/Min 15.00 LPM 04/10/24 19:38 Vent Mode ASSIST/CONTROL 04/11/24 05:37 FiO2 80.00 04/11/24 05:37 Tidal Volume 350 mL 04/11/24 05:37 PEEP 8 cmH2O 04/11/24 05:37 Sodium 136 mmol/L (135-145) 04/12/24 04:35 Potassium 4.0 mmol/L (3.5-4.5) 04/12/24 16:24 Chloride 107 mmol/L (101-111) 04/12/24 04:35 Carbon Dioxide 26 mmol/L (21-32) 04/12/24 04:35 Anion Gap 3.0 (6-13) L 04/12/24 04:35 BUN 12 mg/dL (6-20) 04/12/24 04:35 Creatinine 0.5 mg/dL (0.6-1.3) L 04/12/24 04:35 Estimated GFR (MDRD) 123 (>89) 04/12/24 04:35 Glucose 126 mg/dL (74-104) H 04/12/24 04:35 POC Whole Bld Glucose 126 mg/dL (70 - 100) H 04/12/24 11:53 Lactic Acid 1.0 mmol/L (0.5-2.2) 04/12/24 04:35 Calcium 8.3 mg/dL (8.5-10.3) L 04/12/24 04:35 Phosphorus 1.1 mg/dL (2.5-5.0) L 04/12/24 16:24 Magnesium 1.8 mg/dL (1.7-2.3) 04/12/24 16:24 Total Bilirubin 0.4 mg/dL (0.2-1.0) 04/12/24 04:35 AST 18 IU/L (10-42) 04/12/24 04:35 ALT 10 IU/L (10-60) 04/12/24 04:35 Alkaline Phosphatase 57 IU/L (42-121) 04/12/24 04:35 Total Creatine Kinase 77 IU/L (30-223) 04/09/24 12:27 Troponin I High Sens 9.3 ng/L (2.3-14.8) 04/10/24 20:55 B-Natriuretic Peptide 689 pg/mL (5-100) H 04/10/24 20:55 Total Protein 4.8 g/dL (6.4-8.9) L 04/12/24 04:35 Albumin 2.6 g/dL (3.2-5.5) L 04/12/24 04:35 Globulin 2.2 g/dL (2.1-4.2) 04/12/24 04:35 Albumin/Globulin Ratio 1.2 (1.0-2.2) 04/12/24 04:35 Lipase < 10 U/L (11-82) L 04/09/24 12:27 Vitamin B12 311 pg/mL (180-914) 04/10/24 09:05 Folate 21.5 ng/mL (5.90 - >24.8) 04/10/24 09:05 TSH 68.07 uIU/mL (0.34-5.60) H 04/09/24 12:27 Thyroxine (T4) 4.8 ug/dL (6.1-12.2) L 04/09/24 12:45 Free T3 pg/mL 3.20 pg/mL (2.5-3.9) 04/09/24 12:45 T3 Uptake 42 % (32-48) 04/09/24 12:45 Urine Color YELLOW 04/09/24 16:47 Urine Clarity CLEAR (CLEAR) 04/09/24 16:47 Urine pH 5.5 PH (5.0-7.5) 04/09/24 16:47 Ur Specific [place] >=1.030 (1.002-1.030) H 04/09/24 16:47 Urine Protein TRACE mg/dL (NEGATIVE) 04/09/24 16:47 Urine Glucose (UA) NEGATIVE mg/dL (NEGATIVE) 04/09/24 16:47 Urine Ketones NEGATIVE mg/dL (NEGATIVE) 04/09/24 16:47 Urine Occult Blood NEGATIVE (NEGATIVE) 04/09/24 16:47 Urine Nitrite NEGATIVE (NEGATIVE) 04/09/24 16:47 Urine Bilirubin NEGATIVE (NEGATIVE) 04/09/24 16:47 Urine Urobilinogen 0.2 (NORMAL) E.U./dL (NORMAL) 04/09/24 16:47 Ur Leukocyte Esterase NEGATIVE (NEGATIVE) 04/09/24 16:47 Ur Microscopic Review NOT INDICATED 04/09/24 16:47 Urine Culture Comments NOT INDICATED 04/09/24 16:47 Nasal Screen MRSA (PCR) NEGATIVE (NEGATIVE) 04/09/24 19:45 Salicylates < 1.5 mg/dL 04/09/24 12:27 Urine Opiates Screen NEGATIVE (NEGATIVE) 04/09/24 16:47 Ur Buprenorphine Scrn NEGATIVE (NEGATIVE) 04/09/24 16:47 Ur Oxycodone Screen NEGATIVE (NEGATIVE) 04/09/24 16:47 Urine Methadone Screen NEGATIVE (NEGATIVE) 04/09/24 16:47 Acetaminophen 0.2 ug/mL 04/09/24 12:27 Ur Barbiturates Screen NEGATIVE (NEGATIVE) 04/09/24 16:47 Ur Tricyclics Screen NEGATIVE (NEGATIVE) 04/09/24 16:47 Ur Phencyclidine Scrn NEGATIVE (NEGATIVE) 04/09/24 16:47 Ur Amphetamine Screen NEGATIVE (NEGATIVE) 04/09/24 16:47 U Methamphetamines Scrn POSITIVE (NEGATIVE) H 04/09/24 16:47 U Benzodiazepines Scrn NEGATIVE (NEGATIVE) 04/09/24 16:47 Urine Cocaine Screen POSITIVE (NEGATIVE) H 04/09/24 16:47 U Cannabinoids Screen POSITIVE (NEGATIVE) H 04/09/24 16:47 Ur Drug Screen Comment CUTOFF CONC BELOW: 04/09/24 16:47 Ethyl Alcohol < 10.0 mg/dL 04/09/24 12:27
[2024-04-12] MEDS: SODIUM PHOSPHATE 21 MMOL in SODIUM CHLORIDE 0.9% 250 ML IV ONE (18:10)
[2024-04-12] MEDS: CALCIUM CHLORIDE 1,000 MG in SODIUM CHLORIDE 0.9% 50 ML IV ONE (18:12)
[2024-04-12] MEDS: CALCIUM GLUC 1,000MG/50ML-NACL 1,000 MG/50 ML BAG IV ONE (19:35)
[2024-04-13 02:53] LABS: MAGNESIUM 1.7 mg/dL (1.7-2.3)
[2024-04-13 02:59] LABS: PHOSPHORUS 1.6 mg/dL (2.5-5.0)
[2024-04-13 03:00] LABS: CALCIUM, IONIZED 1.14 mmol/L (1.15-1.33); VBG PH 7.446 (7.31-7.41)
[2024-04-13] MEDS: MAGNESIUM SULFATE 2 GRAM 2 GM/50 ML BAG IV ONE ×3 (03:25→19:31)
[2024-04-13] MEDS: NEUTRA-PHOS 250 MG TABLET PO SCH (05:26)
[2024-04-13 06:00] LABS: HCT - HEMATOCRIT 27.2 % (37.0-47.0); HGB - HEMOGLOBIN 9.1 g/dL (12.0-16.0); MEAN CORPUSCULAR HEMOGLOBIN 33.5 pg (27.0-31.0); MEAN CORPUSCULAR HGB CONC 33.5 g/dL (32.0-36.0); MEAN PLATELET VOLUME 9.5 fL (7.9-10.8); RED BLOOD COUNT 2.72 10^6/uL (4.20-5.40); RED CELL DISTRIBUTION WIDTH 13.6 % (12.0-15.0); WHITE BLOOD COUNT 9.4 x10^3/uL (4.8-10.8)
[2024-04-13 06:45] LABS: ALBUMIN 2.5 g/dL (3.2-5.5); ALBUMIN/GLOBULIN RATIO 1.1 (1.0-2.2); BILIRUBIN,TOTAL 0.4 mg/dL (0.2-1.0); CALCIUM 8.4 mg/dL (8.5-10.3); CREATININE 0.4 mg/dL (0.6-1.3); PHOSPHORUS 1.4 mg/dL (2.5-5.0); POTASSIUM 3.7 mmol/L (3.5-4.5); TOTAL PROTEIN 4.7 g/dL (6.4-8.9)
--- NOTE | 2024-04-13 07:37 | PROVIDER PROGRESS NOTE ---
Assessment/Plan - Problem List (1) Acute hypoxemic respiratory failure Assessment/Plan: Patient is critically ill and currently requiring artificial life support with mechanical ventilation. Ventilator settings: Tidal volume 350 mL, PEEP 8 cm of water, Mode: Assist Control, RR 12 FiO2 40%. Continue supportive care mechanical ventilation. Although patient's mental status has improved, she continues to have periods of significant somnolence and she has copious secretions.She underwent respond he is she underwent a spontaneous breathing trial and her rapid shallow breathing index was above 110. Patient to undergo another breathing trial in the morning. Plan: Continue respiratory support with mechanical ventilation. An order has been written for chest physiotherapy. Patient is approximately 6 L positive. Patient to receive Lasix for diuresis. (2) Aspiration Pneumonia Conclusion/Plan: Patient has a large right lower lobe opacity most consistent with an aspiration event. Plan is to continue antibiotic coverage with Zosyn. 1 set of blood cultures grew out Streptococcus pneumonia however, patient had a aspiration event and most likely changes on her chest x-ray represent a polymicrobial process secondary to aspiration. Continue Zosyn. (3) Toxic Encephalopathy Conclusion/Plan: Toxic encephalopathy appears to be resolving. Patient is much more arousable and following commands. Most likely related to polysubstance use with methamphetamine, cocaine, cannabis and highly likely to be related to opiate use given her clinical finding of pinpoint pupils and the fact that she does respond to treatment with Narcan. Plan: Continue to follow mental status. (3) Polysubstance abuse Conclusion/Plan: Urine drug screen is positive for methamphetamine, cocaine and cannabis. At this time I cannot exclude another substance such as fentanyl or other opiate. Patient does appear to respond to Narcan. Plan: Narcan as needed for obtundation. (4) Hypothyroidism Conclusion/Plan: Patient reportedly was taking levothyroxine as an outpatient but stopped months ago. Plan: Levothyroxine 75 mcg daily through NG tube (5) Leukopenia Conclusion/Plan: Resolved. Critical care time spent reviewing the chart, reviewing lab results, reviewing imaging studies, examining the patient and writing orders: 32 minutes. - Current Meds Current Meds: Current Medications Generic Name Dose Route Start Last Admin Trade Name Freq PRN Reason Stop Dose Admin Chlorhexidine Gluconate 15 ml 04/12/24 10:00 04/12/24 20:45 Chlorhexidine Gluconate 15 Ml Udc PO 15 ml BID SUSANNA Administration Enoxaparin Sodium 40 mg 04/10/24 09:00 04/12/24 08:34 Enoxaparin 40 Mg/0.4 Ml Syringe SUBQ 40 mg DAILY SUSANNA Administration Famotidine 20 mg 04/10/24 21:00 04/12/24 20:39 Famotidine 20 Mg/2 Ml Vial IVP 20 mg BID SUSANNA Administration NOREPINEPHRINE/0.9 % NS 8 mg in 250 mls @ 15 mls/hr 04/10/24 23:00 04/12/24 12:45 Levophed 8 Mg/250-0.9% Nacl IV 0 mcg/min .[id number] SUSANNA 0 mls/hr Titration Protocol 8 MCG/MIN Piperacillin Sod/Tazobactam 100 mls @ 25 mls/hr 04/11/24 05:00 04/13/24 04:40 Sod 3.375 gm/ Sodium Chloride IV 25 mls/hr Q8H SUSANNA Administration Acetaminophen 1,000 mg in 100 mls @ 400 mls/hr 04/11/24 04:20 04/12/24 16:40 Acetaminophen IV Infused Q6HR PRN Infusion FEVER > 100.5 F Potassium Chloride/Sodium Chloride 1,000 mls @ 100 mls/hr 04/11/24 22:00 04/12/24 23:38 Normal Saline 0.9% W/20 Meq Kcl IV 100 mls/hr .Q10H SUSANNA Administration Insulin Human Regular 1 - 5 unit 04/09/24 19:00 04/13/24 06:29 Insulin Regular, Human 300 Unit/3 Ml Pen SUBQ Not Given Q6HR SUSANNA Protocol Naloxone HCl 2 mg 04/09/24 20:05 04/10/24 02:31 Naloxone 0.4 Mg/Ml Vial IVP 2 mg Q5MIN PRN Administration opiate overdose Ondansetron HCl 4 mg 04/09/24 18:35 04/10/24 19:55 Ondansetron 4 Mg/2 Ml Vial IVP 4 mg Q6HR PRN Administration Nausea / Vomiting Polyethylene Glycol 17 gm 04/12/24 09:00 04/12/24 08:34 Polyethylene Glycol 3350 17 Gm Packet PO 17 gm DAILY SUSANNA Administration Sodium Chloride 10 ml 04/10/24 01:00 04/13/24 03:25 Sodium Chloride Flush 0.9% 10 Ml Syringe IVP 10 ml 0100,0900,1700 SUSANNA Administration - Lab Result Fish Bone Diagrams: 04/13/24 05:35 04/13/24 18:00 - Additional Planning My Orders: My Active Orders 04/12/24 07:52 Zinc Oxide [Isaac Protect] 1 applic TOP PRN PRN 04/12/24 09:00 polyethylene glycoL 3350 [Miralax] 17 gm PO DAILY 04/12/24 10:00 Chlorhexidine [Peridex] 15 ml PO BID 04/12/24 21:04 NonViolent Restraint(s) Q24H 04/13/24 07:00 Levothyroxine [Synthroid] 75 mcg PO QDAC 04/13/24 07:34 CPT - Chest Physical Therapy [RC] TID 04/13/24 07:36 FUROSEMIDE INJ 40mg VIAL [LASIX INJ 40 mg VIAL] 20 mg IVP DAILY 04/13/24 08:00 Potassium Chloride Oral Soln [Potassium Chloride] 40 meq NG ONCE 04/13/24 09:00 Multivitamin W/Minerals Liq [Centrum] 15 ml PO DAILY 04/13/24 11:00 CALCIUM, IONIZED ([facility]) [BG] Timed MAGNESIUM [CHEM] Timed PHOSPHORUS [CHEM] Timed POTASSIUM [CHEM] Timed Subjective - Subjective Patient Reports: Other (Intubated and sedated. Patient following commands. She continues to have copious secretions.) Objective Vital Signs: Vital Signs - 24 hr 04/12/24 04/12/24 04/12/24 08:00 09:00 10:00 Temperature 37.1 C Heart Rate 98 Heart Rate [ 102 H 97 103 H Monitoring electrodes] Respiratory 20 19 19 Rate Blood Pressure [Left Brachial artery] Blood Pressure 90/61 93/66 94/66 [Right Brachial artery] O2 Saturation 96 98 100 04/12/24 04/12/24 04/12/24 11:00 11:12 12:00 Temperature 37.1 C Heart Rate 104 H Heart Rate [ 102 H 107 H Monitoring electrodes] Respiratory 22 20 Rate Blood Pressure [Left Brachial artery] Blood Pressure 95/69 95/71 [Right Brachial artery] O2 Saturation 97 98 04/12/24 04/12/24 04/12/24 13:00 13:24 14:00 Temperature Heart Rate 110 H Heart Rate [ 112 H 110 H Monitoring electrodes] Respiratory 19 21 Rate Blood Pressure [Left Brachial artery] Blood Pressure 109/71 102/71 [Right Brachial artery] O2 Saturation 96 95 04/12/24 04/12/24 04/12/24 15:00 15:49 16:00 Temperature 38.1 C H Heart Rate 114 H Heart Rate [ 113 H 112 H Monitoring electrodes] Respiratory 24 23 Rate Blood Pressure [Left Brachial artery] Blood Pressure 97/71 103/70 [Right Brachial artery] O2 Saturation 96 96 04/12/24 04/12/24 04/12/24 17:00 18:00 18:41 Temperature Heart Rate 100 Heart Rate [ 109 H 106 H 103 H Monitoring electrodes] Respiratory 23 18 20 Rate Blood Pressure 100/60 [Left Brachial artery] Blood Pressure 95/66 83/58 L 85/56 L [Right Brachial artery] O2 Saturation 97 96 95 04/12/24 04/12/24 04/12/24 19:00 19:08 20:00 Temperature Heart Rate 106 H Heart Rate [ 102 H 103 H Monitoring electrodes] Respiratory 17 18 Rate Blood Pressure 87/59 L 92/55 L [Left Brachial artery] Blood Pressure [Right Brachial artery] O2 Saturation 96 96 04/12/24 04/12/24 04/12/24 21:00 21:14 21:23 Temperature 36.8 C Heart Rate 99 Heart Rate [ 98 Monitoring electrodes] Respiratory 32 H 22 Rate Blood Pressure 96/63 [Left Brachial artery] Blood Pressure [Right Brachial artery] O2 Saturation 99 04/12/24 04/12/24 04/12/24 22:00 23:00 23:28 Temperature Heart Rate 102 H Heart Rate [ 101 H 98 Monitoring electrodes] Respiratory 18 19 Rate Blood Pressure 98/64 95/64 [Left Brachial artery] Blood Pressure [Right Brachial artery] O2 Saturation 100 99 04/13/24 04/13/24 04/13/24 00:00 01:00 01:23 Temperature 36.4 C L Heart Rate 101 H Heart Rate [ 102 H 100 Monitoring electrodes] Respiratory 20 23 Rate Blood Pressure 94/68 105/70 [Left Brachial artery] Blood Pressure [Right Brachial artery] O2 Saturation 100 100 04/13/24 04/13/24 04/13/24 02:00 03:00 03:19 Temperature 36.7 C Heart Rate 106 H Heart Rate [ 101 H 103 H Monitoring electrodes] Respiratory 24 23 Rate Blood Pressure 103/71 104/70 [Left Brachial artery] Blood Pressure [Right Brachial artery] O2 Saturation 96 97 04/13/24 04/13/24 04/13/24 04:00 05:00 05:26 Temperature 36.5 C Heart Rate 101 H Heart Rate [ 101 H 121 H Monitoring electrodes] Respiratory 22 36 H Rate Blood Pressure 109/69 139/83 H [Left Brachial artery] Blood Pressure [Right Brachial artery] O2 Saturation 95 94 04/13/24 04/13/24 04/13/24 06:00 07:00 07:08 Temperature 36.9 C Heart Rate 106 H Heart Rate [ 102 H 104 H Monitoring electrodes] Respiratory 21 29 H Rate Blood Pressure 109/70 107/68 [Left Brachial artery] Blood Pressure [Right Brachial artery] O2 Saturation 96 97 04/13/24 07:20 Temperature Heart Rate 112 H Heart Rate [ Monitoring electrodes] Respiratory Rate Blood Pressure [Left Brachial artery] Blood Pressure [Right Brachial artery] O2 Saturation Oxygen O2 Source Mechanical ventilator Oxygen Flow Rate 3 I&O (Last 24 Hrs): Intake and Output Totals x24h 04/11/24 04/12/24 04/13/24 23:59 23:59 23:59 Intake Total 3327.027 4003.126 586 Output Total 1405 1625 1025 Balance 9782.943 6366.126 -629 General: Alert HEENT: Other (Endotracheal tube in good position) Neuro: Alert, Non Focal Cardiovascular: Other (Positive S1-S2 no extra heart sounds.) Respiratory: Other (Good air exchange in all lung sanchez no wheezing or crackles) Abdomen: Other (Soft nontender nondistended positive bowel) Extremities: No cyanosis, No edema Skin: No rashes - Results Results: Laboratory Results WBC 9.4 x10^3/uL (4.8-10.8) 04/13/24 05:35 RBC 2.72 10^6/uL (4.20-5.40) L 04/13/24 05:35 Hgb 9.1 g/dL (12.0-16.0) L 04/13/24 05:35 Hct 27.2 % (37.0-47.0) L 04/13/24 05:35 MCV 100.0 fL (81.0-99.0) H 04/13/24 05:35 MCH 33.5 pg (27.0-31.0) H 04/13/24 05:35 MCHC 33.5 g/dL (32.0-36.0) 04/13/24 05:35 RDW 13.6 % (12.0-15.0) 04/13/24 05:35 Plt Count 149 10^3/uL (130-450) 04/13/24 05:35 MPV 9.5 fL (7.9-10.8) 04/13/24 05:35 Neut # (Auto) Not Reportable 04/12/24 04:35 Lymph # (Auto) Not Reportable 04/12/24 04:35 Wise # (Auto) Not Reportable 04/12/24 04:35 Eos # (Auto) Not Reportable 04/12/24 04:35 Baso # (Auto) Not Reportable 04/12/24 04:35 Absolute Nucleated RBC Not Reportable 04/12/24 04:35 Total Counted 100 04/12/24 04:35 Band Neuts % (Manual) 0 % (0-10) 04/12/24 04:35 Reactive Lymphs % (Man) 6 % 04/12/24 04:35 Abnorm Lymph % (Manual) 0 % 04/12/24 04:35 Promyelocytes % 2 % (-0) H 04/11/24 04:09 Nucleated RBC % Not Reportable 04/12/24 04:35 Neutrophils # (Manual) 7.6 10^3/uL (1.5-6.6) H 04/12/24 04:35 Lymphocytes # (Manual) 2.0 10^3/uL (1.5-3.5) 04/12/24 04:35 Monocytes # (Manual) 2.2 10^3/uL (0.0-1.0) H 04/12/24 04:35 Eosinophils # (Manual) 0.0 10^3/uL (0-0.7) 04/12/24 04:35 Basophils # (Manual) 0.0 10^3/uL (0-0.1) 04/12/24 04:35 Differential Comment MANUAL DIFFERENTIAL 04/12/24 04:35 Manual Slide Review Indicated 04/10/24 20:55 WBC Morphology 2+ VACUOLATION (NORMAL) 2+ DOHLE BODIES (NORMAL) 04/11/24 04:09 WBC Morphology 2+ VACUOLATION (NORMAL) 2+ DOHLE BODIES (NORMAL) 04/11/24 04:09 Platelet Estimate NORMAL (130-450,000) (NORMAL) 04/12/24 04:35 Platelet Morphology M (NORMAL) 04/12/24 04:35 RBC Morph Micro Appear NORMAL APPEARANCE (NORMAL) 04/10/24 20:55 PT 14.8 secs (9.9-12.6) H 04/12/24 04:35 INR 1.4 (0.8-1.2) H 04/12/24 04:35 APTT 31.5 secs (24.9-33.3) 04/12/24 04:35 Bld Gas Analysis Time 05:42 04/11/24 05:37 Sample Site RIGHT RADIAL 04/11/24 05:37 ABG pH 7.31 (7.35-7.45) L 04/11/24 05:37 ABG pCO2 44 mmHg (34-45) 04/11/24 05:37 ABG pO2 62 mmHg (80-100) L 04/11/24 05:37 ABG HCO3 21.3 mmol/L (22.0-26.0) L 04/11/24 05:37 ABG Total CO2 22.7 MMOL/L (21.0-29.0) 04/11/24 05:37 ABG O2 Saturation 93 % (94-98) L 04/11/24 05:37 ABG Base Excess -4.8 mmol/L (-2.0-3.0) L 04/11/24 05:37 [place] Test POSITIVE 04/11/24 05:37 VBG pH 7.446 (7.31-7.41) H 04/13/24 02:25 VBG pCO2 50.0 mmHg (41-51) 04/09/24 16:48 VBG pO2 139.1 mmHg (25-47) H 04/09/24 16:48 VBG HCO3 19.2 mmol/L (23-28) L 04/09/24 16:48 VBG Total CO2 20.8 mmol/L (24-29) L 04/09/24 16:48 VBG O2 Saturation 98.2 % (60-80) H 04/09/24 16:48 VBG Base Excess -8.8 mmol/L (-2 - +2) L 04/09/24 16:48 Ionized Calcium 1.14 mmol/L (1.15-1.33) L 04/13/24 02:25 Respiration Rate 14 b/min 04/11/24 05:37 O2 Delivery Device VENTILATOR 04/11/24 05:37 O2 Liters/Min 15.00 LPM 04/10/24 19:38 Vent Mode ASSIST/CONTROL 04/11/24 05:37 FiO2 80.00 04/11/24 05:37 Tidal Volume 350 mL 04/11/24 05:37 PEEP 8 cmH2O 04/11/24 05:37 Sodium 134 mmol/L (135-145) L 04/13/24 05:35 Potassium 3.7 mmol/L (3.5-4.5) 04/13/24 05:35 Chloride 105 mmol/L (101-111) 04/13/24 05:35 Carbon Dioxide 26 mmol/L (21-32) 04/13/24 05:35 Anion Gap 3.0 (6-13) L 04/13/24 05:35 BUN 12 mg/dL (6-20) 04/13/24 05:35 Creatinine 0.4 mg/dL (0.6-1.3) L 04/13/24 05:35 Estimated GFR (MDRD) 159 (>89) 04/13/24 05:35 Glucose 137 mg/dL (74-104) H 04/13/24 05:35 POC Whole Bld Glucose 126 mg/dL (70 - 100) H 04/13/24 06:05 Lactic Acid 1.0 mmol/L (0.5-2.2) 04/12/24 04:35 Calcium 8.4 mg/dL (8.5-10.3) L 04/13/24 05:35 Phosphorus 1.4 mg/dL (2.5-5.0) L 04/13/24 05:35 Magnesium 2.0 mg/dL (1.7-2.3) 04/13/24 05:35 Total Bilirubin 0.4 mg/dL (0.2-1.0) 04/13/24 05:35 AST 13 IU/L (10-42) 04/13/24 05:35 ALT 8 IU/L (10-60) L 04/13/24 05:35 Alkaline Phosphatase 69 IU/L (42-121) 04/13/24 05:35 Total Creatine Kinase 77 IU/L (30-223) 04/09/24 12:27 Troponin I High Sens 9.3 ng/L (2.3-14.8) 04/10/24 20:55 B-Natriuretic Peptide 689 pg/mL (5-100) H 04/10/24 20:55 Total Protein 4.7 g/dL (6.4-8.9) L 04/13/24 05:35 Albumin 2.5 g/dL (3.2-5.5) L 04/13/24 05:35 Globulin 2.2 g/dL (2.1-4.2) 04/13/24 05:35 Albumin/Globulin Ratio 1.1 (1.0-2.2) 04/13/24 05:35 Lipase < 10 U/L (11-82) L 04/09/24 12:27 Vitamin B12 311 pg/mL (180-914) 04/10/24 09:05 Folate 21.5 ng/mL (5.90 - >24.8) 04/10/24 09:05 TSH 68.07 uIU/mL (0.34-5.60) H 04/09/24 12:27 Thyroxine (T4) 4.8 ug/dL (6.1-12.2) L 04/09/24 12:45 Free T3 pg/mL 3.20 pg/mL (2.5-3.9) 04/09/24 12:45 T3 Uptake 42 % (32-48) 04/09/24 12:45 Urine Color YELLOW 04/09/24 16:47 Urine Clarity CLEAR (CLEAR) 04/09/24 16:47 Urine pH 5.5 PH (5.0-7.5) 04/09/24 16:47 Ur Specific [place] >=1.030 (1.002-1.030) H 04/09/24 16:47 Urine Protein TRACE mg/dL (NEGATIVE) 04/09/24 16:47 Urine Glucose (UA) NEGATIVE mg/dL (NEGATIVE) 04/09/24 16:47 Urine Ketones NEGATIVE mg/dL (NEGATIVE) 04/09/24 16:47 Urine Occult Blood NEGATIVE (NEGATIVE) 04/09/24 16:47 Urine Nitrite NEGATIVE (NEGATIVE) 04/09/24 16:47 Urine Bilirubin NEGATIVE (NEGATIVE) 04/09/24 16:47 Urine Urobilinogen 0.2 (NORMAL) E.U./dL (NORMAL) 04/09/24 16:47 Ur Leukocyte Esterase NEGATIVE (NEGATIVE) 04/09/24 16:47 Ur Microscopic Review NOT INDICATED 04/09/24 16:47 Urine Culture Comments NOT INDICATED 04/09/24 16:47 Nasal Screen MRSA (PCR) NEGATIVE (NEGATIVE) 04/09/24 19:45 Salicylates < 1.5 mg/dL 04/09/24 12:27 Urine Opiates Screen NEGATIVE (NEGATIVE) 04/09/24 16:47 Ur Buprenorphine Scrn NEGATIVE (NEGATIVE) 04/09/24 16:47 Ur Oxycodone Screen NEGATIVE (NEGATIVE) 04/09/24 16:47 Urine Methadone Screen NEGATIVE (NEGATIVE) 04/09/24 16:47 Acetaminophen 0.2 ug/mL 04/09/24 12:27 Ur Barbiturates Screen NEGATIVE (NEGATIVE) 04/09/24 16:47 Ur Tricyclics Screen NEGATIVE (NEGATIVE) 04/09/24 16:47 Ur Phencyclidine Scrn NEGATIVE (NEGATIVE) 04/09/24 16:47 Ur Amphetamine Screen NEGATIVE (NEGATIVE) 04/09/24 16:47 U Methamphetamines Scrn POSITIVE (NEGATIVE) H 04/09/24 16:47 U Benzodiazepines Scrn NEGATIVE (NEGATIVE) 04/09/24 16:47 Urine Cocaine Screen POSITIVE (NEGATIVE) H 04/09/24 16:47 U Cannabinoids Screen POSITIVE (NEGATIVE) H 04/09/24 16:47 Ur Drug Screen Comment CUTOFF CONC BELOW: 04/09/24 16:47 Ethyl Alcohol < 10.0 mg/dL 04/09/24 12:27
[2024-04-13] MEDS: LEVOTHYROXINE 75 MCG TABLET PO SCH (07:45)
[2024-04-13] MEDS: FUROSEMIDE 20 MG/2 ML VIAL IVP SCH ×2 (07:46→19:53)
[2024-04-13] MEDS: POTASSIUM CHLORIDE 20 MEQ/15 ML UDC NG SCH ×2 (07:46→19:56)
--- NOTE | 2024-04-13 08:02 | XRAY Report ---
PROCEDURE: Chest 1V INDICATIONS: Intubated and sedatd. TECHNIQUE: One view of the chest was acquired. COMPARISON: Chest radiographs 04/12/2024 and 04/10/2024 FINDINGS: Surgical changes and devices: Endotracheal tube is seen with tip approximately 2.2 cm above the vijay na. An enteric tube traverses the diaphragm with tip below the level of the [id number] of this exa m. Right internal jugular catheter terminates at the superior cavoatrial junction. Lungs and pleura: Right basilar opacities and small right pleural effusion and do not appear signifi cantly changed. Bilateral interstitial and central venous prominence. Mediastinum: Mediastinal contours appear normal. Heart size is normal. Bones and chest wall: No suspicious bony lesions. Overlying soft tissues appear unremarkable. IMPRESSION: Stable lines and tubes. Stable right lower lobe opacities and small right pleural effusion. Bilateral central venous prominence. There is no significant discrepancy when compared with the preliminary overnight report. Reviewed by: Te Malcolm MD on 04/13/2024 8:00 AM PDT Approved by: Te Malcolm MD on 04/13/2024 8:00 AM PDT Station ID: [id number]
[2024-04-13] MEDS: MULTIVITAMIN W/IRON, MINERALS 15 ML PO SCH (08:33)
[2024-04-13] MEDS: DOCUSATE SODIUM 250 MG CAPSULE PO SCH (09:06)
[2024-04-13] MEDS: SENNA 8.6 MG TABLET PO SCH (09:07)
[2024-04-13 11:06] LABS: CALCIUM, IONIZED 1.12 mmol/L (1.15-1.33); VBG PH 7.493 (7.31-7.41)
[2024-04-13 11:17] LABS: MAGNESIUM 1.5 mg/dL (1.7-2.3)
[2024-04-13 11:23] LABS: CALCIUM 8.4 mg/dL (8.5-10.3); CREATININE 0.5 mg/dL (0.6-1.3); PHOSPHORUS 1.5 mg/dL (2.5-5.0); POTASSIUM 3.6 mmol/L (3.5-4.5)
[2024-04-13] MEDS: POTASSIUM CHLORIDE 20 MEQ/15 ML UDC PO ONE ×2 (11:55→20:01)
[2024-04-13] MEDS: POTASSIUM PHOSPHATE 21 MMOL in SODIUM CHLORIDE 0.9% 250 ML IV ONE (12:09)
[2024-04-13 18:07] LABS: CALCIUM, IONIZED 1.11 mmol/L (1.15-1.33); VBG PH 7.478 (7.31-7.41)
[2024-04-13 18:15] LABS: MAGNESIUM 1.6 mg/dL (1.7-2.3); POTASSIUM 3.8 mmol/L (3.5-4.5)
[2024-04-13 18:21] LABS: PHOSPHORUS 3.2 mg/dL (2.5-5.0)
[2024-04-13] MEDS ORDERED: FUROSEMIDE 40 MG/4 ML VIAL IVP SCH (20:00)
[2024-04-13] MEDS: LORazepam 2 MG/ML VIAL IVP PRN (22:41)
[2024-04-14 01:10] LABS: MAGNESIUM 1.6 mg/dL (1.7-2.3)
[2024-04-14] MEDS: MAGNESIUM SULFATE 2 GRAM 2 GM/50 ML BAG IV ONE (02:57)
[2024-04-14 05:19] LABS: CALCIUM, IONIZED 1.15 mmol/L (1.15-1.33); VBG PH 7.482 (7.31-7.41)
[2024-04-14 05:33] LABS: CALCIUM 8.8 mg/dL (8.5-10.3); CREATININE 0.5 mg/dL (0.6-1.3); MAGNESIUM 2.1 mg/dL (1.7-2.3); POTASSIUM 3.7 mmol/L (3.5-4.5)
[2024-04-14] MEDS: POTASSIUM CHLORIDE 20 MEQ/15 ML UDC PO ONE (06:22)
--- NOTE | 2024-04-14 08:03 | PROVIDER PROGRESS NOTE ---
<Sinai Soto - Last Filed: 04/14/24 10:30> Subjective - Prog Note Date Prog Note Date: 04/14/24 Prog Note Time: 08:00 - Subjective Pt reports feeling: Improved Subjective: Oriented. Extubated this morning; no respiratory distress. Current Medications - Current Medications Current Medications: Medications Multivitamins/Folic Acid/Vitamin C (Multivitamin W/Iron, Minerals 15 Ml) 15 ml PO DAILY [facility] Last Admin: 04/13/24 08:33 Dose: 15 ml Chlorhexidine Gluconate (Chlorhexidine Gluconate 15 Ml Udc) 15 ml PO BID SUSANNA Last Admin: 04/13/24 20:34 Dose: 15 ml NOREPINEPHRINE/0.9 % NS (Levophed 8 Mg/250-0.9% Nacl) 8 mg in 250 mls @ 15 mls/hr IV .[id number] [facility]; Protocol Last Admin: 04/13/24 18:02 Dose: Not Given Levothyroxine Sodium (Levothyroxine 75 Mcg Tablet) 75 mcg PO QDAC [facility] Last Admin: 04/14/24 06:22 Dose: 75 mcg Piperacillin Sod/Tazobactam (Sod 3.375 gm/ Sodium Chloride) 100 mls @ 25 mls/hr IV Q8H [facility] Last Admin: 04/14/24 04:56 Dose: 25 mls/hr Insulin Human Regular (Insulin Regular, Human 300 Unit/3 Ml Pen) 1 - 5 unit SUBQ Q6HR [facility]; Protocol Last Admin: 04/14/24 06:07 Dose: 1 unit Acetaminophen (Acetaminophen) 1,000 mg in 100 mls @ 400 mls/hr IV Q6HR PRN PRN Reason: FEVER > 100.5 F Last Admin: 04/12/24 16:40 Dose: Infused Ondansetron HCl (Ondansetron 4 Mg/2 Ml Vial) 4 mg IVP Q6HR PRN PRN Reason: Nausea / Vomiting Last Admin: 04/14/24 02:33 Dose: 4 mg Ondansetron HCl (Ondansetron Odt 4 Mg Tablet) 4 mg TL Q6HR PRN PRN Reason: Nausea / Vomiting Naloxone HCl (Naloxone 0.4 Mg/Ml Vial) 2 mg IVP Q5MIN PRN PRN Reason: opiate overdose Last Admin: 04/10/24 02:31 Dose: 2 mg Albuterol/Ipratropium (Ipratropium/Albuterol 3 Ml Neb) 3 ml INH Q4HR PRN PRN Reason: Wheezing Multi-Ingredient Ointment (Zinc Oxide 12% Oint 57 Gm Tube) 1 applic TOP PRN PRN PRN Reason: Skin Care Sodium Chloride (Sodium Chloride Flush 0.9% 10 Ml Syringe) 10 ml IVP PRN PRN PRN Reason: NEEDED PER PROVIDER ORDERS Furosemide (Furosemide 20 Mg/2 Ml Vial) 20 mg IVP ONCE [facility] Stop: 04/14/24 19:59 Last Admin: 04/13/24 19:53 Dose: 20 mg Potassium Chloride (Potassium Chloride 20 Meq/15 Ml Udc) 40 meq NG ONCE [facility] Stop: 04/14/24 19:59 Last Admin: 04/13/24 19:56 Dose: 40 meq Lorazepam (Lorazepam 2 Mg/Ml Vial) 1 mg IVP ONCE PRN PRN Reason: Anxiety Stop: 04/14/24 22:20 Last Admin: 04/13/24 22:41 Dose: 1 mg Senna (Senna 8.6 Mg Tablet) 8.6 - 17.2 mg PO DAILY [facility] Last Admin: 04/13/24 09:07 Dose: 8.6 mg Docusate Sodium (Docusate Sodium 250 Mg Capsule) 250 - 500 mg PO DAILY [facility] Last Admin: 04/13/24 09:06 Dose: 250 mg Polyethylene Glycol (Polyethylene Glycol 3350 17 Gm Packet) 17 gm PO DAILY [facility] Last Admin: 04/13/24 08:33 Dose: 17 gm Enoxaparin Sodium (Enoxaparin 40 Mg/0.4 Ml Syringe) 40 mg SUBQ DAILY [facility] Last Admin: 04/13/24 08:16 Dose: 40 mg Famotidine (Famotidine 20 Mg/2 Ml Vial) 20 mg IVP BID [facility] Last Admin: 04/13/24 20:34 Dose: 20 mg Sodium Chloride (Sodium Chloride Flush 0.9% 10 Ml Syringe) 10 ml IVP 0100,0900,1700 [facility] Last Admin: 04/14/24 00:44 Dose: 10 ml Objective - Vital Signs/Intake & Output Vital Signs: Vital Signs x48h Pulse Pulse Resp BP Pulse Ox 04/14/24 07:04 98 04/14/24 06:07 101 H 04/14/24 06:00 104 H 22 95/82 H 97 04/14/24 05:00 103 H 20 103/68 95 04/14/24 04:00 104 H 22 108/72 94 04/14/24 03:29 102 H 04/14/24 03:00 104 H 22 102/73 93 04/14/24 02:00 103 H 27 H 108/68 92 04/14/24 01:47 103 H 04/14/24 01:00 114 H 23 125/81 H 92 Intake & Output: Intake & Output 04/11/24 04/12/24 04/13/24 04/14/24 23:59 23:59 23:59 23:59 Intake Total 3327.027 4003.126 2482.333 561 Output Total 1405 1625 7315 1540 Balance 9496.551 2080.126 -4832.667 -979 - Objective General Appearance: positive: No acute distress, Alert Eyes Bilateral: positive: Normal inspection ENT: positive: ENT inspection nml Neck: positive: Nml inspection Respiratory: positive: Chest non-tender, No respiratory distress. negative: Wheezes, Rales, Rhonchi Cardiovascular: positive: Regular rate & rhythm. negative: No murmur, No gallop Abdomen: positive: Non-tender. negative: Guarding, Rebound Back: positive: Nml inspection Extremities: positive: Non-tender, Pedal edema Neurologic/Psychiatric: positive: Mood/affect nml - Lab Results Fish Bones: 04/13/24 05:35 04/14/24 04:55 Other Labs: Lab Results x24hrs 04/14/24 04/14/24 04/14/24 Range/Units 06:04 04:55 04:55 VBG pH 7.482 H (7.31-7.41) Ionized Calcium 1.15 (1.15-1.33) mmol/L Sodium 130 L (135-145) mmol/L Potassium 3.7 (3.5-4.5) mmol/L Chloride 97 L (101-111) mmol/L Carbon Dioxide 26 (21-32) mmol/L Anion Gap 7.0 (6-13) BUN 11 (6-20) mg/dL Creatinine 0.5 L (0.6-1.3) mg/dL Estimated GFR (MDRD) 123 (>89) Glucose 156 H (74-104) mg/dL POC Whole Bld Glucose 178 H (70 - 100) mg/dL Calcium 8.8 (8.5-10.3) mg/dL Phosphorus 3.0 (2.5-5.0) mg/dL Magnesium 2.1 (1.7-2.3) mg/dL 04/14/24 04/14/24 04/13/24 Range/Units 00:45 00:25 18:00 VBG pH 7.478 H (7.31-7.41) Ionized Calcium 1.11 L (1.15-1.33) mmol/L Sodium (135-145) mmol/L Potassium 4.0 (3.5-4.5) mmol/L Chloride (101-111) mmol/L Carbon Dioxide (21-32) mmol/L Anion Gap (6-13) BUN (6-20) mg/dL Creatinine (0.6-1.3) mg/dL Estimated GFR (MDRD) (>89) Glucose (74-104) mg/dL POC Whole Bld Glucose 164 H (70 - 100) mg/dL Calcium (8.5-10.3) mg/dL Phosphorus (2.5-5.0) mg/dL Magnesium 1.6 L (1.7-2.3) mg/dL 04/13/24 04/13/24 04/13/24 Range/Units 18:00 17:57 11:54 VBG pH (7.31-7.41) Ionized Calcium (1.15-1.33) mmol/L Sodium (135-145) mmol/L Potassium 3.8 (3.5-4.5) mmol/L Chloride (101-111) mmol/L Carbon Dioxide (21-32) mmol/L Anion Gap (6-13) BUN (6-20) mg/dL Creatinine (0.6-1.3) mg/dL Estimated GFR (MDRD) (>89) Glucose (74-104) mg/dL POC Whole Bld Glucose 139 H 148 H (70 - 100) mg/dL Calcium (8.5-10.3) mg/dL Phosphorus 3.2 (2.5-5.0) mg/dL Magnesium 1.6 L (1.7-2.3) mg/dL 04/13/24 04/13/24 Range/Units 11:00 11:00 VBG pH 7.493 H (7.31-7.41) Ionized Calcium 1.12 L (1.15-1.33) mmol/L Sodium 132 L (135-145) mmol/L Potassium 3.6 (3.5-4.5) mmol/L Chloride 101 (101-111) mmol/L Carbon Dioxide 26 (21-32) mmol/L Anion Gap 5.0 L (6-13) BUN 12 (6-20) mg/dL Creatinine 0.5 L (0.6-1.3) mg/dL Estimated GFR (MDRD) 123 (>89) Glucose 157 H (74-104) mg/dL POC Whole Bld Glucose (70 - 100) mg/dL Calcium 8.4 L (8.5-10.3) mg/dL Phosphorus 1.5 L (2.5-5.0) mg/dL Magnesium 1.5 L (1.7-2.3) mg/dL - Diagnostic Imaging Diagnostic Imaging Results: positive: See rad report ("Stable right lower lobe opacities and small right pleural effusion.") ABX Reporting Has patient been on IV antibiotics over the past 48 hours?: Yes Assessment/Plan - Problem List (1) Acute hypoxemic respiratory failure Impression: Patient has been on artificial life support with mechanical ventilation. After using Lasix for diuresis she had a net output of 4833 mL yesterday. RSBI was 84 this morning. Patient was extubated this morning without stridor, respiratory distress, or further complications. She is currently breathing with a nasal cannula at 4L; oxygen saturation at 93- 94%. Continue oxygenation with nasal cannula. Incentive spirometry hourly. Plan to work with PT. (2) Aspiration pneumonia Impression: No current respiratory distress; patient was extubated this morning. Chest XR this morning showed no significant changes in the right basilar opacities and small right pleural effusion when compared to previous dates. Final result from blood culture on 04/10/24 detected strep pneumoniae. Currently on day 4 of Zosyn - started on 04/11/24. Continue antibiotic - will monitor for signs of worsening pneumonia and pleural effusion. Qualifiers: Laterality: right (3) Toxic encephalopathy Impression: Patient is responsive and able to follow commands. Likely due to polysubstance use - drug screen on 04/09/24 positive for methamphetamines, cocaine, and cannabinoids. Unable to exclude fentanyl or other opiates. Narcan ordered as needed for obtundation. Will continue to monitor mental status. (4) Polysubstance abuse Impression: Drug screen on 04/09/24 positive for methamphetamines, cocaine, and cannabinoids. Unable to exclude fentanyl or other opiates. Narcan ordered as needed for obtundation. (5) Hypothyroidism Impression: Patient reported taking levothyroxine previously, but stopped months ago. Levothyroxine 75mcg tablets orally daily. (6) Hyponatremia Impression: Sodium is 130mmol/L today despite lasix and net output of 4833 mL yesterday. Will plan to try salt tablets with meal or IV NaCl today. <Jonathan Ballesteros - Last Filed: 04/14/24 20:19> Objective - Vital Signs/Intake & Output Vital Signs: Vital Signs x48h Temp Pulse Resp BP Pulse Ox O2 Flow Rate 04/14/24 20:00 37.6 C 103 H 34 H 110/77 93 4 04/14/24 19:00 104 H 32 H 103/70 93 4 04/14/24 18:00 101 H 30 H 103/68 94 4 04/14/24 17:00 37.5 C 91 27 H 102/62 97 4 04/14/24 16:00 96 26 H 91/65 95 4 04/14/24 15:00 103 H 26 H 92/57 L 97 4 04/14/24 14:00 100 28 H 103/68 95 4 04/14/24 13:00 37.3 C 109 H 26 H 103/65 94 4 Intake & Output: Intake & Output 04/11/24 04/12/24 04/13/24 04/14/24 23:59 23:59 23:59 23:59 Intake Total 3327.027 4003.126 2482.333 1183 Output Total 1405 1625 7315 3695 Balance 1540.511 6454.126 -4832.667 -2512 - Lab Results Fish Bones: 04/14/24 10:10 04/14/24 04:55 Other Labs: Lab Results x24hrs 04/14/24 04/14/24 04/14/24 Range/Units 18:30 12:08 10:10 WBC 10.2 (4.8-10.8) x10^3/uL RBC 3.23 L (4.20-5.40) 10^6/uL Hgb 10.7 L (12.0-16.0) g/dL Hct 31.5 L (37.0-47.0) % MCV 97.5 (81.0-99.0) fL MCH 33.1 H (27.0-31.0) pg MCHC 34.0 (32.0-36.0) g/dL RDW 13.2 (12.0-15.0) % Plt Count 158 (130-450) 10^3/uL MPV 9.5 (7.9-10.8) fL VBG pH (7.31-7.41) Ionized Calcium (1.15-1.33) mmol/L Sodium (135-145) mmol/L Potassium (3.5-4.5) mmol/L Chloride (101-111) mmol/L Carbon Dioxide (21-32) mmol/L Anion Gap (6-13) BUN (6-20) mg/dL Creatinine (0.6-1.3) mg/dL Estimated GFR (MDRD) (>89) Glucose (74-104) mg/dL POC Whole Bld Glucose 156 H 196 H (70 - 100) mg/dL Calcium (8.5-10.3) mg/dL Phosphorus (2.5-5.0) mg/dL Magnesium (1.7-2.3) mg/dL 04/14/24 04/14/24 04/14/24 Range/Units 06:04 04:55 04:55 WBC (4.8-10.8) x10^3/uL RBC (4.20-5.40) 10^6/uL Hgb (12.0-16.0) g/dL Hct (37.0-47.0) % MCV (81.0-99.0) fL MCH (27.0-31.0) pg MCHC (32.0-36.0) g/dL RDW (12.0-15.0) % Plt Count (130-450) 10^3/uL MPV (7.9-10.8) fL VBG pH 7.482 H (7.31-7.41) Ionized Calcium 1.15 (1.15-1.33) mmol/L Sodium 130 L (135-145) mmol/L Potassium 3.7 (3.5-4.5) mmol/L Chloride 97 L (101-111) mmol/L Carbon Dioxide 26 (21-32) mmol/L Anion Gap 7.0 (6-13) BUN 11 (6-20) mg/dL Creatinine 0.5 L (0.6-1.3) mg/dL Estimated GFR (MDRD) 123 (>89) Glucose 156 H (74-104) mg/dL POC Whole Bld Glucose 178 H (70 - 100) mg/dL Calcium 8.8 (8.5-10.3) mg/dL Phosphorus 3.0 (2.5-5.0) mg/dL Magnesium 2.1 (1.7-2.3) mg/dL 04/14/24 04/14/24 Range/Units 00:45 00:25 WBC (4.8-10.8) x10^3/uL RBC (4.20-5.40) 10^6/uL Hgb (12.0-16.0) g/dL Hct (37.0-47.0) % MCV (81.0-99.0) fL MCH (27.0-31.0) pg MCHC (32.0-36.0) g/dL RDW (12.0-15.0) % Plt Count (130-450) 10^3/uL MPV (7.9-10.8) fL VBG pH (7.31-7.41) Ionized Calcium (1.15-1.33) mmol/L Sodium (135-145) mmol/L Potassium 4.0 (3.5-4.5) mmol/L Chloride (101-111) mmol/L Carbon Dioxide (21-32) mmol/L Anion Gap (6-13) BUN (6-20) mg/dL Creatinine (0.6-1.3) mg/dL Estimated GFR (MDRD) (>89) Glucose (74-104) mg/dL POC Whole Bld Glucose 164 H (70 - 100) mg/dL Calcium (8.5-10.3) mg/dL Phosphorus (2.5-5.0) mg/dL Magnesium 1.6 L (1.7-2.3) mg/dL
--- NOTE | 2024-04-14 08:43 | XRAY Report ---
PROCEDURE: Chest 1V INDICATIONS: Intubated patient with pneumonia TECHNIQUE: One view of the chest was acquired. COMPARISON: Chest radiograph 04/13/2024 and 04/12/2024 FINDINGS: Surgical changes and devices: Tracheal tube is seen with tip approximately 2.5 cm above the ann. Enteric tube traverses the diaphragm with tip below the [id number] of this exam. Right internal ju gular catheter is seen with tip projecting over the lower superior vena cava. Lungs and pleura: Small right pleural effusion and hazy opacities do not appear significantly change d compared to the exam from the prior given differences in positioning. Mild bilateral facet prominen ce again noted. Mediastinum: Mediastinal contours appear normal. Heart size is normal. Bones and chest wall: No suspicious bony lesions. Overlying soft tissues appear unremarkable. IMPRESSION: 1.Stable lines and tubes. 2.Right basilar opacities and small right pleural effusion do not appear significantly changed. Reviewed by: Te Malcolm MD on 04/14/2024 8:42 AM PDT Approved by: Te Malcolm MD on 04/14/2024 8:42 AM PDT Station ID: [id number]
[2024-04-14 10:28] LABS: HCT - HEMATOCRIT 31.5 % (37.0-47.0); HGB - HEMOGLOBIN 10.7 g/dL (12.0-16.0); MEAN CORPUSCULAR HEMOGLOBIN 33.1 pg (27.0-31.0); MEAN CORPUSCULAR VOLUME 97.5 fL (81.0-99.0); MEAN PLATELET VOLUME 9.5 fL (7.9-10.8); RED BLOOD COUNT 3.23 10^6/uL (4.20-5.40); RED CELL DISTRIBUTION WIDTH 13.2 % (12.0-15.0); WHITE BLOOD COUNT 10.2 x10^3/uL (4.8-10.8)
[2024-04-14] MEDS: SODIUM CHLORIDE 1 GM TABLET PO SCH (15:03)
[2024-04-14] MEDS: BENZONATATE 100 MG CAPSULE PO PRN (21:22)
[2024-04-14] MEDS: IBUPROFEN 800 MG TABLET PO PRN (21:22)
[2024-04-14] MEDS: INSULIN LISPRO 300 UNIT/3 ML PEN SUBQ SCH (21:23)
[2024-04-14] MEDS: SODIUM CHLORIDE FLUSH 0.9% 10 ML SYRINGE IVP PRN (21:24)
[2024-04-15] MEDS: KETOROLAC 30 MG/ML VIAL IVP PRN (04:59)
[2024-04-15 05:30] LABS: BASOPHILS # (AUTO) 0.1 10^3/uL (0.0-0.1); BASOPHILS % (AUTO) 0.6 %; HGB - HEMOGLOBIN 9.6 g/dL (12.0-16.0); LYMPHOCYTES # (AUTO) 0.9 10^3/uL (1.5-3.5); LYMPHOCYTES % (AUTO) 8.7 %; MEAN CORPUSCULAR HEMOGLOBIN 32.4 pg (27.0-31.0); MEAN CORPUSCULAR HGB CONC 33.1 g/dL (32.0-36.0); MONOCYTES # (AUTO) 1.4 10^3/uL (0.0-1.0); MONOCYTES % (AUTO) 13.6 %; NEUTROPHILS # (AUTO) 7.7 10^3/uL (1.5-6.6); NEUTROPHILS % (AUTO) 73.2 %; PLT - PLATELET COUNT 147 10^3/uL (130-450); RED BLOOD COUNT 2.96 10^6/uL (4.20-5.40); WHITE BLOOD COUNT 10.5 x10^3/uL (4.8-10.8)
[2024-04-15 05:48] LABS: CALCIUM 8.4 mg/dL (8.5-10.3); CREATININE 0.5 mg/dL (0.6-1.3); MAGNESIUM 1.6 mg/dL (1.7-2.3); PHOSPHORUS 3.6 mg/dL (2.5-5.0); POTASSIUM 3.2 mmol/L (3.5-4.5)
[2024-04-15 06:12] LABS: CALCIUM, IONIZED 1.12 mmol/L (1.15-1.33); VBG PH 7.416 (7.31-7.41)
[2024-04-15] MEDS: MAGNESIUM OXIDE 400 MG TABLET PO ONE (06:52)
[2024-04-15] MEDS: POTASSIUM CHLORIDE 20 MEQ TABLET PO SCH (08:09)
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
[2024-04-15] MEDS ORDERED: PRENATAL VITAMIN TABLET PO SCH (09:00)
[2024-04-15] MEDS: THIAMINE 100 MG TABLET PO SCH (10:04)
[2024-04-15] MEDS ORDERED: POTASSIUM CHLORIDE 20 MEQ TABLET PO SCH (13:00)
[2024-04-15] MEDS: DICLOFENAC SODIUM 1% GEL 50 GM TUBE TOP PRN (15:00)
[2024-04-15] MEDS: KETOROLAC 15 MG/ML VIAL IVP PRN (20:43)
[2024-04-16] MEDS: ACETAMINOPHEN 500 MG TABLET PO PRN (00:41)
[2024-04-16 04:53] LABS: BASOPHILS % (AUTO) 0.4 %; EOSINOPHILS % (AUTO) 0.1 %; HCT - HEMATOCRIT 28.6 % (37.0-47.0); HGB - HEMOGLOBIN 9.5 g/dL (12.0-16.0); LYMPHOCYTES # (AUTO) 1.3 10^3/uL (1.5-3.5); LYMPHOCYTES % (AUTO) 12.8 %; MEAN CORPUSCULAR HEMOGLOBIN 32.5 pg (27.0-31.0); MEAN CORPUSCULAR HGB CONC 33.2 g/dL (32.0-36.0); MEAN CORPUSCULAR VOLUME 97.9 fL (81.0-99.0); MEAN PLATELET VOLUME 9.7 fL (7.9-10.8); MONOCYTES % (AUTO) 10.3 %; NEUTROPHILS # (AUTO) 7.1 10^3/uL (1.5-6.6); NEUTROPHILS % (AUTO) 71.7 %; PLT - PLATELET COUNT 197 10^3/uL (130-450); RED BLOOD COUNT 2.92 10^6/uL (4.20-5.40); RED CELL DISTRIBUTION WIDTH 12.9 % (12.0-15.0); WHITE BLOOD COUNT 9.9 x10^3/uL (4.8-10.8)
[2024-04-16 05:13] LABS: CALCIUM 8.9 mg/dL (8.5-10.3); CREATININE 0.5 mg/dL (0.6-1.3); POTASSIUM 3.7 mmol/L (3.5-4.5)
[2024-04-16] MEDS: POTASSIUM CHLORIDE 20 MEQ TABLET PO SCH ×2 (08:43→09:16)
[2024-04-16] MEDS: MULTIVITAMIN W/MINERALS TABLET PO SCH (08:44)
[2024-04-16 10:39] LABS: ESTIMATED AVERAGE GLUCOSE 117 mg/dL (70-100); HEMOGLOBIN A1c% 5.7 % (4.27-6.07)
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
[2024-04-16] MEDS: ONDANSETRON ODT 4 MG TABLET TL PRN (15:52)
[2024-04-17 04:38] LABS: BASOPHILS % (AUTO) 0.3 %; EOSINOPHILS % (AUTO) 0.1 %; HCT - HEMATOCRIT 31.3 % (37.0-47.0); HGB - HEMOGLOBIN 10.2 g/dL (12.0-16.0); LYMPHOCYTES % (AUTO) 25.1 %; MEAN CORPUSCULAR HEMOGLOBIN 32.2 pg (27.0-31.0); MEAN CORPUSCULAR HGB CONC 32.6 g/dL (32.0-36.0); MEAN CORPUSCULAR VOLUME 98.7 fL (81.0-99.0); MEAN PLATELET VOLUME 9.8 fL (7.9-10.8); MONOCYTES % (AUTO) 8.7 %; NEUTROPHILS % (AUTO) 59.8 %; PLT - PLATELET COUNT 289 10^3/uL (130-450); RED BLOOD COUNT 3.17 10^6/uL (4.20-5.40); RED CELL DISTRIBUTION WIDTH 12.8 % (12.0-15.0)
[2024-04-17 04:54] LABS: CREATININE 0.5 mg/dL (0.6-1.3); POTASSIUM 4.3 mmol/L (3.5-4.5)
[2024-04-17 05:04] LABS: ABNORMAL LYMPHS % (MANUAL) 0 %; BAND NEUTROPHILS % (MANUAL) 0 %
[2024-04-17 05:18] LABS: DIFFERENTIAL COMMENT MANUAL DIFFERENTIAL; LYMPHOCYTES # (MANUAL) 2.5 10^3/uL (1.5-3.5); LYMPHOCYTES % (MANUAL) 35 %; MONOCYTES # (MANUAL) 0.7 10^3/uL (0.0-1.0); NEUTROPHILS # (MANUAL) 3.9 10^3/uL (1.5-6.6); PLATELET ESTIMATE, MANUAL NORMAL (130-450,000) (NORMAL); RBC MORPHOLOGY (MULTIPLE) NORMAL APPEARANCE (NORMAL)
[2024-04-17] MEDS: fentaNYL 100 MCG/2 ML VIAL IVP PRN (10:27)
--- NOTE | 2024-04-17 12:23 | PROVIDER PROGRESS NOTE ---
Assessment/Plan - Problem List (1) Bacteremia Assessment/Plan: (1) Bacteremia Impression: Blood culture from 04/10/24 detected streptococcus pneumoniae; bacteremia may be secondary to bacterial pneumonia with streptococcus pneumoniae. Preliminary follow-up blood culture from 04/15/24 detected no growth. Currently on day 6 of Zosyn - started on 04/11/24. Case discussed with ID on 04/17. Recommended treatment with cefixime or cefidixime when transitioning to PO. Currently pending second negative blood culture result. Will need 14 total days of antibiotics from first negative blood culture. Etiology is believed to be her PNA. She does not need a HARRISON. (2) Acute hypoxemic respiratory failure Impression: Improved. Patient was extubated two days ago without complications. She is currently breathing comfortably on room air; oxygen saturation at 94-95%. Plan to work with PT. (3) Aspiration pneumonia Impression: Breathing comfortably on room air, no respiratory distress; patient was extu bated 2 day ago. Currently on day 6 of Zosyn - started on 04/11/24. Qualifiers: Laterality: right (4) Toxic encephalopathy Impression: Resolved. Ordered narcan as needed for obtundation. Ordered thiamine Hcl 100mg daily. Will continue to monitor mental status. (5) Polysubstance abuse Impression: Drug screen on 04/09/24 positive for methamphetamines, cocaine, and cannabinoids. Unable to exclude fentanyl or other opiates. Narcan ordered as needed for obtundation. (6) Rectal prolapse Impression: Her symptoms are worsening over the past 24 hours. Transfer requests have been put out for [facility], [place], . No accepting hospital at this time. Although this is an outpatient procedure, the concern is that she will go home and overdose due to the pain. Case was discussed with surgery at the [place], they are recommending we attempt to transfer to the [place] psychiatric unit where they may be able to intervene. Given her social concerns and high risk for an unintentional drug overdose I feel she would be best served to have this procedure performed for pain control. (7) Hypothyroidism Impression: Patient reported taking levothyroxine previously, but stopped months ago. Levothyroxine 75mcg tablets orally daily. - Current Meds Current Meds: Current Medications Generic Name Dose Route Start Last Admin Trade Name Freq PRN Reason Stop Dose Admin Acetaminophen 1,000 mg 04/15/24 12:40 04/17/24 00:50 Acetaminophen 500 Mg Tablet PO 1,000 mg Q6H PRN Administration FEVER > 100.5 F Benzonatate 100 mg 04/14/24 20:50 04/16/24 06:01 Benzonatate 100 Mg Capsule PO 100 mg TID PRN Administration Cough Diclofenac Sodium 2 gm 04/15/24 14:13 04/15/24 15:00 Diclofenac Sodium 1% Gel 50 Gm Tube TOP 2 gm QID PRN Administration Mild Pain (Level 1-3) Docusate Sodium 250 - 500 mg 04/13/24 09:00 04/17/24 08:09 Docusate Sodium 250 Mg Capsule PO 250 mg DAILY SUSANNA Administration Enoxaparin Sodium 40 mg 04/10/24 09:00 04/17/24 08:10 Enoxaparin 40 Mg/0.4 Ml Syringe SUBQ 40 mg DAILY SUSANNA Administration Fentanyl 25 mcg 04/17/24 10:14 04/17/24 10:27 Fentanyl 100 Mcg/2 Ml Vial IVP 25 mcg Q2HR PRN Administration Severe Pain (Level 7-10) Piperacillin Sod/Tazobactam 100 mls @ 25 mls/hr 04/11/24 05:00 04/17/24 09:40 Sod 3.375 gm/ Sodium Chloride IV Infused Q8H SUSANNA Infusion Ketorolac Tromethamine 15 mg 04/15/24 14:01 04/17/24 04:04 Ketorolac 15 Mg/Ml Vial IVP 04/20/24 14:00 15 mg Q6HR PRN Administration Severe Pain (Level 7-10) Levothyroxine Sodium 75 mcg 04/13/24 07:00 04/17/24 07:13 Levothyroxine 75 Mcg Tablet PO 75 mcg QDAC SUSANNA Administration Multivitamins/Minerals 1 tab 04/16/24 09:00 04/17/24 08:09 Multivitamin W/Minerals Tablet PO 1 tab DAILY SUSANNA Administration Naloxone HCl 2 mg 04/09/24 20:05 04/10/24 02:31 Naloxone 0.4 Mg/Ml Vial IVP 2 mg Q5MIN PRN Administration opiate overdose Ondansetron HCl 4 mg 04/09/24 18:35 04/16/24 22:02 Ondansetron Odt 4 Mg Tablet TL 4 mg Q6HR PRN Administration Nausea / Vomiting Ondansetron HCl 4 mg 04/09/24 18:35 04/16/24 09:20 Ondansetron 4 Mg/2 Ml Vial IVP 4 mg Q6HR PRN Administration Nausea / Vomiting Polyethylene Glycol 17 gm 04/12/24 09:00 04/17/24 08:10 Polyethylene Glycol 3350 17 Gm Packet PO Not Given DAILY SUSANNA Senna 8.6 - 17.2 mg 04/13/24 09:00 04/17/24 08:09 Senna 8.6 Mg Tablet PO 8.6 mg DAILY SUSANNA Administration Sodium Chloride 10 ml 04/10/24 01:00 04/17/24 08:10 Sodium Chloride Flush 0.9% 10 Ml Syringe IVP 10 ml 0100,0900,1700 SUSANNA Administration Sodium Chloride 10 ml 04/09/24 18:35 04/17/24 00:49 Sodium Chloride Flush 0.9% 10 Ml Syringe IVP 10 ml PRN PRN Administration NEEDED PER PROVIDER ORDERS Thiamine HCl 100 mg 04/15/24 09:00 04/17/24 08:09 Thiamine 100 Mg Tablet PO 100 mg DAILY SUSANNA Administration - Lab Result Fish Bone Diagrams: 04/17/24 04:08 04/17/24 04:08 - Additional Planning My Orders: My Active Orders 04/17/24 04:08 Blood Culture [CULTURE, BLOOD #1] [RM] Routine 04/17/24 10:14 fentaNYL 25 mcg IVP Q2HR PRN 04/18/24 05:00 BMP - BASIC METABOLIC PANEL [CHEM] DAILYLAB CBC [CBC - COMP BLD CT W/AUTO DIFF] [HEME] DAILYLAB CBC [CBC - COMP BLD CT W/AUTO DIFF] [HEME] DAILYLAB 04/19/24 05:00 BMP - BASIC METABOLIC PANEL [CHEM] DAILYLAB CBC [CBC - COMP BLD CT W/AUTO DIFF] [HEME] DAILYLAB CBC [CBC - COMP BLD CT W/AUTO DIFF] [HEME] DAILYLAB 04/20/24 05:00 BMP - BASIC METABOLIC PANEL [CHEM] DAILYLAB CBC [CBC - COMP BLD CT W/AUTO DIFF] [HEME] DAILYLAB Subjective - Subjective Patient Reports: Other (Rectal prolapse, her pain is worsening. We are attempting to have her transferred for colorectal surgery.) Objective Vital Signs: Vital Signs - 24 hr 04/16/24 04/17/24 04/17/24 16:00 05:46 09:00 Temperature 37 C Heart Rate 80 Heart Rate [ 70 65 Monitoring electrodes] Respiratory 18 16 20 Rate Blood Pressure 120/77 113/78 [Right Brachial artery] O2 Saturation 96 93 Oxygen O2 Source Room air Oxygen Flow Rate 3 I&O (Last 24 Hrs): Intake and Output Totals x24h 04/15/24 04/16/24 04/17/24 23:59 23:59 23:59 Intake Total 2480 1420 550 Output Total 0 0 Balance 2480 1420 550 General: Alert, Oriented x3, Cooperative, No acute distress Neuro: Alert, CN 2-12 Grossly Intact, Oriented Times 3 Cardiovascular: Regular rate, Normal S1, Normal S2, No murmurs Respiratory: Chest non-tender, No respiratory distress, Breath sounds nml Abdomen: Normal bowel sounds, Soft, No tenderness, No hepatospenomegaly, No masses - Results Results: Laboratory Results WBC 7.0 x10^3/uL (4.8-10.8) 04/17/24 04:08 RBC 3.17 10^6/uL (4.20-5.40) L 04/17/24 04:08 Hgb 10.2 g/dL (12.0-16.0) L 04/17/24 04:08 Hct 31.3 % (37.0-47.0) L 04/17/24 04:08 MCV 98.7 fL (81.0-99.0) 04/17/24 04:08 MCH 32.2 pg (27.0-31.0) H 04/17/24 04:08 MCHC 32.6 g/dL (32.0-36.0) 04/17/24 04:08 RDW 12.8 % (12.0-15.0) 04/17/24 04:08 Plt Count 289 10^3/uL (130-450) 04/17/24 04:08 MPV 9.8 fL (7.9-10.8) 04/17/24 04:08 Neut # (Auto) Not Reportable 04/17/24 04:08 Lymph # (Auto) Not Reportable 04/17/24 04:08 [place] # (Auto) Not Reportable 04/17/24 04:08 Eos # (Auto) Not Reportable 04/17/24 04:08 Baso # (Auto) Not Reportable 04/17/24 04:08 Absolute Nucleated RBC Not Reportable 04/17/24 04:08 Total Counted 100 04/17/24 04:08 Band Neuts % (Manual) 0 % (0-10) 04/17/24 04:08 Reactive Lymphs % (Man) 6 % 04/12/24 04:35 Abnorm Lymph % (Manual) 0 % 04/17/24 04:08 Promyelocytes % 2 % (-0) H 04/11/24 04:09 Nucleated RBC % Not Reportable 04/17/24 04:08 Neutrophils # (Manual) 3.9 10^3/uL (1.5-6.6) 04/17/24 04:08 Lymphocytes # (Manual) 2.5 10^3/uL (1.5-3.5) 04/17/24 04:08 Monocytes # (Manual) 0.7 10^3/uL (0.0-1.0) 04/17/24 04:08 Eosinophils # (Manual) 0.0 10^3/uL (0-0.7) 04/17/24 04:08 Basophils # (Manual) 0.0 10^3/uL (0-0.1) 04/17/24 04:08 Differential Comment MANUAL DIFFERENTIAL 04/17/24 04:08 Manual Slide Review Indicated 04/10/24 20:55 WBC Morphology 2+ VACUOLATION (NORMAL) 2+ DOHLE BODIES (NORMAL) 04/11/24 04:09 WBC Morphology 2+ VACUOLATION (NORMAL) 2+ DOHLE BODIES (NORMAL) 04/11/24 04:09 Platelet Estimate NORMAL (130-450,000) (NORMAL) 04/17/24 04:08 Platelet Morphology M (NORMAL) 04/12/24 04:35 RBC Morph Micro Appear NORMAL APPEARANCE (NORMAL) 04/17/24 04:08 PT 14.8 secs (9.9-12.6) H 04/12/24 04:35 INR 1.4 (0.8-1.2) H 04/12/24 04:35 APTT 31.5 secs (24.9-33.3) 04/12/24 04:35 Bld Gas Analysis Time 05:42 04/11/24 05:37 Sample Site RIGHT RADIAL 04/11/24 05:37 ABG pH 7.31 (7.35-7.45) L 04/11/24 05:37 ABG pCO2 44 mmHg (34-45) 04/11/24 05:37 ABG pO2 62 mmHg (80-100) L 04/11/24 05:37 ABG HCO3 21.3 mmol/L (22.0-26.0) L 04/11/24 05:37 ABG Total CO2 22.7 MMOL/L (21.0-29.0) 04/11/24 05:37 ABG O2 Saturation 93 % (94-98) L 04/11/24 05:37 ABG Base Excess -4.8 mmol/L (-2.0-3.0) L 04/11/24 05:37 [place] Test POSITIVE 04/11/24 05:37 VBG pH 7.416 (7.31-7.41) H 04/15/24 04:58 VBG pCO2 50.0 mmHg (41-51) 04/09/24 16:48 VBG pO2 139.1 mmHg (25-47) H 04/09/24 16:48 VBG HCO3 19.2 mmol/L (23-28) L 04/09/24 16:48 VBG Total CO2 20.8 mmol/L (24-29) L 04/09/24 16:48 VBG O2 Saturation 98.2 % (60-80) H 04/09/24 16:48 VBG Base Excess -8.8 mmol/L (-2 - +2) L 04/09/24 16:48 Ionized Calcium 1.12 mmol/L (1.15-1.33) L 04/15/24 04:58 Respiration Rate 14 b/min 04/11/24 05:37 O2 Delivery Device VENTILATOR 04/11/24 05:37 O2 Liters/Min 15.00 LPM 04/10/24 19:38 Vent Mode ASSIST/CONTROL 04/11/24 05:37 FiO2 80.00 04/11/24 05:37 Tidal Volume 350 mL 04/11/24 05:37 PEEP 8 cmH2O 04/11/24 05:37 Sodium 136 mmol/L (135-145) 04/17/24 04:08 Potassium 4.3 mmol/L (3.5-4.5) 04/17/24 04:08 Chloride 105 mmol/L (101-111) 04/17/24 04:08 Carbon Dioxide 25 mmol/L (21-32) 04/17/24 04:08 Anion Gap 6.0 (6-13) 04/17/24 04:08 BUN 10 mg/dL (6-20) 04/17/24 04:08 Creatinine 0.5 mg/dL (0.6-1.3) L 04/17/24 04:08 Estimated GFR (MDRD) 123 (>89) 04/17/24 04:08 Glucose 99 mg/dL (74-104) 04/17/24 04:08 POC Whole Bld Glucose 123 mg/dL (70 - 100) H 04/16/24 07:48 Estimat Average Glucose 117 mg/dL (70-100) H 04/16/24 04:20 Hemoglobin A1c % 5.7 % (4.27-6.07) 04/16/24 04:20 Lactic Acid 1.0 mmol/L (0.5-2.2) 04/12/24 04:35 Calcium 9.0 mg/dL (8.5-10.3) 04/17/24 04:08 Phosphorus 3.6 mg/dL (2.5-5.0) 04/15/24 04:58 Magnesium 1.6 mg/dL (1.7-2.3) L 04/15/24 04:58 Total Bilirubin 0.4 mg/dL (0.2-1.0) 04/13/24 05:35 AST 13 IU/L (10-42) 04/13/24 05:35 ALT 8 IU/L (10-60) L 04/13/24 05:35 Alkaline Phosphatase 69 IU/L (42-121) 04/13/24 05:35 Total Creatine Kinase 77 IU/L (30-223) 04/09/24 12:27 Troponin I High Sens 9.3 ng/L (2.3-14.8) 04/10/24 20:55 B-Natriuretic Peptide 689 pg/mL (5-100) H 04/10/24 20:55 Total Protein 4.7 g/dL (6.4-8.9) L 04/13/24 05:35 Albumin 2.5 g/dL (3.2-5.5) L 04/13/24 05:35 Globulin 2.2 g/dL (2.1-4.2) 04/13/24 05:35 Albumin/Globulin Ratio 1.1 (1.0-2.2) 04/13/24 05:35 Lipase < 10 U/L (11-82) L 04/09/24 12:27 Vitamin B12 311 pg/mL (180-914) 04/10/24 09:05 Folate 21.5 ng/mL (5.90 - >24.8) 04/10/24 09:05 TSH 68.07 uIU/mL (0.34-5.60) H 04/09/24 12:27 Thyroxine (T4) 4.8 ug/dL (6.1-12.2) L 04/09/24 12:45 Free T3 pg/mL 3.20 pg/mL (2.5-3.9) 04/09/24 12:45 T3 Uptake 42 % (32-48) 04/09/24 12:45 Urine Color YELLOW 04/09/24 16:47 Urine Clarity CLEAR (CLEAR) 04/09/24 16:47 Urine pH 5.5 PH (5.0-7.5) 04/09/24 16:47 Ur Specific [place] >=1.030 (1.002-1.030) H 04/09/24 16:47 Urine Protein TRACE mg/dL (NEGATIVE) 04/09/24 16:47 Urine Glucose (UA) NEGATIVE mg/dL (NEGATIVE) 04/09/24 16:47 Urine Ketones NEGATIVE mg/dL (NEGATIVE) 04/09/24 16:47 Urine Occult Blood NEGATIVE (NEGATIVE) 04/09/24 16:47 Urine Nitrite NEGATIVE (NEGATIVE) 04/09/24 16:47 Urine Bilirubin NEGATIVE (NEGATIVE) 04/09/24 16:47 Urine Urobilinogen 0.2 (NORMAL) E.U./dL (NORMAL) 04/09/24 16:47 Ur Leukocyte Esterase NEGATIVE (NEGATIVE) 04/09/24 16:47 Ur Microscopic Review NOT INDICATED 04/09/24 16:47 Urine Culture Comments NOT INDICATED 04/09/24 16:47 Nasal Screen MRSA (PCR) NEGATIVE (NEGATIVE) 04/09/24 19:45 Salicylates < 1.5 mg/dL 04/09/24 12:27 Urine Opiates Screen NEGATIVE (NEGATIVE) 04/09/24 16:47 Ur Buprenorphine Scrn NEGATIVE (NEGATIVE) 04/09/24 16:47 Ur Oxycodone Screen NEGATIVE (NEGATIVE) 04/09/24 16:47 Urine Methadone Screen NEGATIVE (NEGATIVE) 04/09/24 16:47 Acetaminophen 0.2 ug/mL 04/09/24 12:27 Ur Barbiturates Screen NEGATIVE (NEGATIVE) 04/09/24 16:47 Ur Tricyclics Screen NEGATIVE (NEGATIVE) 04/09/24 16:47 Ur Phencyclidine Scrn NEGATIVE (NEGATIVE) 04/09/24 16:47 Ur Amphetamine Screen NEGATIVE (NEGATIVE) 04/09/24 16:47 U Methamphetamines Scrn POSITIVE (NEGATIVE) H 04/09/24 16:47 U Benzodiazepines Scrn NEGATIVE (NEGATIVE) 04/09/24 16:47 Urine Cocaine Screen POSITIVE (NEGATIVE) H 04/09/24 16:47 U Cannabinoids Screen POSITIVE (NEGATIVE) H 04/09/24 16:47 Ur Drug Screen Comment CUTOFF CONC BELOW: 04/09/24 16:47 Ethyl Alcohol < 10.0 mg/dL 04/09/24 12:27
[2024-04-18 07:27] LABS: BASOPHILS % (AUTO) 0.3 %; HCT - HEMATOCRIT 30.5 % (37.0-47.0); LYMPHOCYTES % (AUTO) 26.6 %; MEAN CORPUSCULAR HEMOGLOBIN 32.5 pg (27.0-31.0); MEAN CORPUSCULAR HGB CONC 32.8 g/dL (32.0-36.0); MEAN PLATELET VOLUME 9.8 fL (7.9-10.8); MONOCYTES % (AUTO) 8.1 %; NEUTROPHILS % (AUTO) 59.1 %; PLT - PLATELET COUNT 364 10^3/uL (130-450); RED BLOOD COUNT 3.08 10^6/uL (4.20-5.40); WHITE BLOOD COUNT 7.5 x10^3/uL (4.8-10.8)
[2024-04-18 07:32] LABS: ABNORMAL LYMPHS % (MANUAL) 0 %
[2024-04-18 07:36] LABS: CALCIUM 7.8 mg/dL (8.5-10.3); CREATININE 0.4 mg/dL (0.6-1.3); POTASSIUM 3.7 mmol/L (3.5-4.5)
[2024-04-18 07:50] LABS: BAND NEUTROPHILS % (MANUAL) 6 %; DIFFERENTIAL COMMENT MANUAL DIFFERENTIAL; LYMPHOCYTES # (MANUAL) 2.1 10^3/uL (1.5-3.5); LYMPHOCYTES % (MANUAL) 28 %; METAMYELOCYTES % (MANUAL) 1 %; MONOCYTES # (MANUAL) 0.6 10^3/uL (0.0-1.0); NEUTROPHILS # (MANUAL) 4.7 10^3/uL (1.5-6.6); PLATELET ESTIMATE, MANUAL NORMAL (130-450,000) (NORMAL); PLATELET MORPHOLOGY NORMAL APPEARANCE (NORMAL); RBC MORPHOLOGY (MULTIPLE) NORMAL APPEARANCE (NORMAL)
--- NOTE | 2024-04-18 10:49 | PROVIDER PROGRESS NOTE ---
Assessment/Plan - Problem List (1) Bacteremia Assessment/Plan: (1) Bacteremia Impression: --Blood cultures negative x2. Case discussed with ID on 04/17. Recommended treatment with cefixime or cefidixime when transitioning to PO. Currently pending second negative blood culture result. Will need 14 total days of antibiotics from first negative blood culture. Etiology is believed to be her PNA. She does not need a HARRISON. Will switch her to PO antibiotics today. (2) Acute hypoxemic respiratory failure Impression: Improved. Patient was extubated two days ago without complications. She is currently breathing comfortably on room air; oxygen saturation at 94-95%. Plan to work with PT. (3) Aspiration pneumonia Impression: Breathing comfortably on room air, no respiratory distress; patient was extubated 2 day ago. Currently on day 6 of Zosyn - started on 04/11/24. Qualifiers: Laterality: right (4) Toxic encephalopathy Impression: Resolved. Ordered narcan as needed for obtundation. Ordered thiamine Hcl 100mg daily. Will continue to monitor mental status. (5) Polysubstance abuse Impression: Drug screen on 04/09/24 positive for methamphetamines, cocaine, and cannabinoids. Unable to exclude fentanyl or other opiates. Narcan ordered as needed for obtundation. --OD was unintentional. This was addressed with her. Patient uses cocaine and meth. Her illicit drugs were laced with Fentanyl and she does not plan on ingesting it again. She is not suicidal. (6) Rectal prolapse Impression: --Discussed case with Dr. Swartz at [facility], he will have his clinic follow up with her next week for an outpatient evaluation. (7) Hypothyroidism Impression: Patient reported taking levothyroxine previously, but stopped months ago. Levothyroxine 75mcg tablets orally daily. - Current Meds Current Meds: Current Medications Generic Name Dose Route Start Last Admin Trade Name Freq PRN Reason Stop Dose Admin Acetaminophen 1,000 mg 04/15/24 12:40 04/18/24 01:03 Acetaminophen 500 Mg Tablet PO 1,000 mg Q6H PRN Administration FEVER > 100.5 F Benzonatate 100 mg 04/14/24 20:50 04/17/24 20:08 Benzonatate 100 Mg Capsule PO 100 mg TID PRN Administration Cough Diclofenac Sodium 2 gm 04/15/24 14:13 04/15/24 15:00 Diclofenac Sodium 1% Gel 50 Gm Tube TOP 2 gm QID PRN Administration Mild Pain (Level 1-3) Docusate Sodium 250 - 500 mg 04/13/24 09:00 04/18/24 08:43 Docusate Sodium 250 Mg Capsule PO 250 mg DAILY SUSANNA Administration Enoxaparin Sodium 40 mg 04/10/24 09:00 04/18/24 08:43 Enoxaparin 40 Mg/0.4 Ml Syringe SUBQ 40 mg DAILY SUSANNA Administration Fentanyl 25 mcg 04/17/24 10:14 04/17/24 16:33 Fentanyl 100 Mcg/2 Ml Vial IVP 25 mcg Q2HR PRN Administration Severe Pain (Level 7-10) Ketorolac Tromethamine 15 mg 04/15/24 14:01 04/18/24 06:16 Ketorolac 15 Mg/Ml Vial IVP 04/20/24 14:00 15 mg Q6HR PRN Administration Severe Pain (Level 7-10) Levothyroxine Sodium 75 mcg 04/13/24 07:00 04/18/24 06:18 Levothyroxine 75 Mcg Tablet PO 75 mcg QDAC SUSANNA Administration Multivitamins/Minerals 1 tab 04/16/24 09:00 04/18/24 08:43 Multivitamin W/Minerals Tablet PO 1 tab DAILY SUSANNA Administration Naloxone HCl 2 mg 04/09/24 20:05 04/10/24 02:31 Naloxone 0.4 Mg/Ml Vial IVP 2 mg Q5MIN PRN Administration opiate overdose Ondansetron HCl 4 mg 04/09/24 18:35 04/17/24 16:33 Ondansetron Odt 4 Mg Tablet TL 4 mg Q6HR PRN Administration Nausea / Vomiting Ondansetron HCl 4 mg 04/09/24 18:35 04/16/24 09:20 Ondansetron 4 Mg/2 Ml Vial IVP 4 mg Q6HR PRN Administration Nausea / Vomiting Polyethylene Glycol 17 gm 04/12/24 09:00 04/18/24 08:43 Polyethylene Glycol 3350 17 Gm Packet PO 17 gm DAILY SUSANNA Administration Senna 8.6 - 17.2 mg 04/13/24 09:00 04/18/24 08:43 Senna 8.6 Mg Tablet PO 8.6 mg DAILY SUSANNA Administration Sodium Chloride 10 ml 04/10/24 01:00 04/18/24 08:45 Sodium Chloride Flush 0.9% 10 Ml Syringe IVP 10 ml 0100,0900,1700 SUSANNA Administration Sodium Chloride 10 ml 04/09/24 18:35 04/17/24 16:34 Sodium Chloride Flush 0.9% 10 Ml Syringe IVP 10 ml PRN PRN Administration NEEDED PER PROVIDER ORDERS Thiamine HCl 100 mg 04/15/24 09:00 04/18/24 08:43 Thiamine 100 Mg Tablet PO 100 mg DAILY SUSANNA Administration - Lab Result Fish Bone Diagrams: 04/18/24 06:45 04/18/24 06:45 - Additional Planning My Orders: My Active Orders 04/17/24 10:14 fentaNYL 25 mcg IVP Q2HR PRN 04/18/24 21:00 Cefpodoxime Proxetil [Vantin] 200 mg PO BID 04/19/24 05:00 BMP - BASIC METABOLIC PANEL [CHEM] DAILYLAB CBC [CBC - COMP BLD CT W/AUTO DIFF] [HEME] DAILYLAB CBC [CBC - COMP BLD CT W/AUTO DIFF] [HEME] DAILYLAB 04/20/24 05:00 BMP - BASIC METABOLIC PANEL [CHEM] DAILYLAB CBC [CBC - COMP BLD CT W/AUTO DIFF] [HEME] DAILYLAB Subjective - Subjective Patient Reports: Feeling Better, Resting Comfortably, No Complaints Objective Vital Signs: Vital Signs - 24 hr 04/17/24 04/17/24 04/18/24 16:00 23:17 08:18 Temperature 37.1 C 36.7 C 36.8 C Heart Rate [ 68 63 63 Brachial] Respiratory 18 20 18 Rate Blood Pressure 118/70 125/70 120/71 [Right Brachial artery] O2 Saturation 94 96 95 Oxygen O2 Source Room air Oxygen Flow Rate 3 I&O (Last 24 Hrs): Intake and Output Totals x24h 04/16/24 04/17/24 04/18/24 23:59 23:59 23:59 Intake Total 1420 1220 900 Output Total 0 Balance 1420 1220 900 General: Alert, Oriented x3 Neuro: Alert, Disoriented Respiratory: Chest non-tender, No respiratory distress, Breath sounds nml - Results Results: Laboratory Results WBC 7.5 x10^3/uL (4.8-10.8) 04/18/24 06:45 RBC 3.08 10^6/uL (4.20-5.40) L 04/18/24 06:45 Hgb 10.0 g/dL (12.0-16.0) L 04/18/24 06:45 Hct 30.5 % (37.0-47.0) L 04/18/24 06:45 MCV 99.0 fL (81.0-99.0) 04/18/24 06:45 MCH 32.5 pg (27.0-31.0) H 04/18/24 06:45 MCHC 32.8 g/dL (32.0-36.0) 04/18/24 06:45 RDW 13.0 % (12.0-15.0) 04/18/24 06:45 Plt Count 364 10^3/uL (130-450) 04/18/24 06:45 MPV 9.8 fL (7.9-10.8) 04/18/24 06:45 Neut # (Auto) Not Reportable 04/18/24 06:45 Lymph # (Auto) Not Reportable 04/18/24 06:45 [place] # (Auto) Not Reportable 04/18/24 06:45 Eos # (Auto) Not Reportable 04/18/24 06:45 Baso # (Auto) Not Reportable 04/18/24 06:45 Absolute Nucleated RBC Not Reportable 04/18/24 06:45 Total Counted 100 04/18/24 06:45 Band Neuts % (Manual) 6 % (0-10) 04/18/24 06:45 Reactive Lymphs % (Man) 6 % 04/12/24 04:35 Abnorm Lymph % (Manual) 0 % 04/18/24 06:45 Metamyelocytes % 1 % (-0) H 04/18/24 06:45 Promyelocytes % 2 % (-0) H 04/11/24 04:09 Nucleated RBC % Not Reportable 04/18/24 06:45 Neutrophils # (Manual) 4.7 10^3/uL (1.5-6.6) 04/18/24 06:45 Lymphocytes # (Manual) 2.1 10^3/uL (1.5-3.5) 04/18/24 06:45 Monocytes # (Manual) 0.6 10^3/uL (0.0-1.0) 04/18/24 06:45 Eosinophils # (Manual) 0.0 10^3/uL (0-0.7) 04/18/24 06:45 Basophils # (Manual) 0.0 10^3/uL (0-0.1) 04/18/24 06:45 Differential Comment MANUAL DIFFERENTIAL 04/18/24 06:45 Manual Slide Review Indicated 04/10/24 20:55 WBC Morphology 2+ VACUOLATION (NORMAL) 2+ DOHLE BODIES (NORMAL) 04/11/24 04:09 WBC Morphology 2+ VACUOLATION (NORMAL) 2+ DOHLE BODIES (NORMAL) 04/11/24 04:09 Platelet Estimate NORMAL (130-450,000) (NORMAL) 04/18/24 06:45 Platelet Morphology NORMAL APPEARANCE (NORMAL) 04/18/24 06:45 RBC Morph Micro Appear NORMAL APPEARANCE (NORMAL) 04/18/24 06:45 PT 14.8 secs (9.9-12.6) H 04/12/24 04:35 INR 1.4 (0.8-1.2) H 04/12/24 04:35 APTT 31.5 secs (24.9-33.3) 04/12/24 04:35 Bld Gas Analysis Time 05:42 04/11/24 05:37 Sample Site RIGHT RADIAL 04/11/24 05:37 ABG pH 7.31 (7.35-7.45) L 04/11/24 05:37 ABG pCO2 44 mmHg (34-45) 04/11/24 05:37 ABG pO2 62 mmHg (80-100) L 04/11/24 05:37 ABG HCO3 21.3 mmol/L (22.0-26.0) L 04/11/24 05:37 ABG Total CO2 22.7 MMOL/L (21.0-29.0) 04/11/24 05:37 ABG O2 Saturation 93 % (94-98) L 04/11/24 05:37 ABG Base Excess -4.8 mmol/L (-2.0-3.0) L 04/11/24 05:37 [place] Test POSITIVE 04/11/24 05:37 VBG pH 7.416 (7.31-7.41) H 04/15/24 04:58 VBG pCO2 50.0 mmHg (41-51) 04/09/24 16:48 VBG pO2 139.1 mmHg (25-47) H 04/09/24 16:48 VBG HCO3 19.2 mmol/L (23-28) L 04/09/24 16:48 VBG Total CO2 20.8 mmol/L (24-29) L 04/09/24 16:48 VBG O2 Saturation 98.2 % (60-80) H 04/09/24 16:48 VBG Base Excess -8.8 mmol/L (-2 - +2) L 04/09/24 16:48 Ionized Calcium 1.12 mmol/L (1.15-1.33) L 04/15/24 04:58 Respiration Rate 14 b/min 04/11/24 05:37 O2 Delivery Device VENTILATOR 04/11/24 05:37 O2 Liters/Min 15.00 LPM 04/10/24 19:38 Vent Mode ASSIST/CONTROL 04/11/24 05:37 FiO2 80.00 04/11/24 05:37 Tidal Volume 350 mL 04/11/24 05:37 PEEP 8 cmH2O 04/11/24 05:37 Sodium 137 mmol/L (135-145) 04/18/24 06:45 Potassium 3.7 mmol/L (3.5-4.5) 04/18/24 06:45 Chloride 108 mmol/L (101-111) 04/18/24 06:45 Carbon Dioxide 23 mmol/L (21-32) 04/18/24 06:45 Anion Gap 6.0 (6-13) 04/18/24 06:45 BUN 11 mg/dL (6-20) 04/18/24 06:45 Creatinine 0.4 mg/dL (0.6-1.3) L 04/18/24 06:45 Estimated GFR (MDRD) 159 (>89) 04/18/24 06:45 Glucose 97 mg/dL (74-104) 04/18/24 06:45 POC Whole Bld Glucose 123 mg/dL (70 - 100) H 04/16/24 07:48 Estimat Average Glucose 117 mg/dL (70-100) H 04/16/24 04:20 Hemoglobin A1c % 5.7 % (4.27-6.07) 04/16/24 04:20 Lactic Acid 1.0 mmol/L (0.5-2.2) 04/12/24 04:35 Calcium 7.8 mg/dL (8.5-10.3) L 04/18/24 06:45 Phosphorus 3.6 mg/dL (2.5-5.0) 04/15/24 04:58 Magnesium 1.6 mg/dL (1.7-2.3) L 04/15/24 04:58 Total Bilirubin 0.4 mg/dL (0.2-1.0) 04/13/24 05:35 AST 13 IU/L (10-42) 04/13/24 05:35 ALT 8 IU/L (10-60) L 04/13/24 05:35 Alkaline Phosphatase 69 IU/L (42-121) 04/13/24 05:35 Total Creatine Kinase 77 IU/L (30-223) 04/09/24 12:27 Troponin I High Sens 9.3 ng/L (2.3-14.8) 04/10/24 20:55 B-Natriuretic Peptide 689 pg/mL (5-100) H 04/10/24 20:55 Total Protein 4.7 g/dL (6.4-8.9) L 04/13/24 05:35 Albumin 2.5 g/dL (3.2-5.5) L 04/13/24 05:35 Globulin 2.2 g/dL (2.1-4.2) 04/13/24 05:35 Albumin/Globulin Ratio 1.1 (1.0-2.2) 04/13/24 05:35 Lipase < 10 U/L (11-82) L 04/09/24 12:27 Vitamin B12 311 pg/mL (180-914) 04/10/24 09:05 Folate 21.5 ng/mL (5.90 - >24.8) 04/10/24 09:05 TSH 68.07 uIU/mL (0.34-5.60) H 04/09/24 12:27 Thyroxine (T4) 4.8 ug/dL (6.1-12.2) L 04/09/24 12:45 Free T3 pg/mL 3.20 pg/mL (2.5-3.9) 04/09/24 12:45 T3 Uptake 42 % (32-48) 04/09/24 12:45 Urine Color YELLOW 04/09/24 16:47 Urine Clarity CLEAR (CLEAR) 04/09/24 16:47 Urine pH 5.5 PH (5.0-7.5) 04/09/24 16:47 Ur Specific [place] >=1.030 (1.002-1.030) H 04/09/24 16:47 Urine Protein TRACE mg/dL (NEGATIVE) 04/09/24 16:47 Urine Glucose (UA) NEGATIVE mg/dL (NEGATIVE) 04/09/24 16:47 Urine Ketones NEGATIVE mg/dL (NEGATIVE) 04/09/24 16:47 Urine Occult Blood NEGATIVE (NEGATIVE) 04/09/24 16:47 Urine Nitrite NEGATIVE (NEGATIVE) 04/09/24 16:47 Urine Bilirubin NEGATIVE (NEGATIVE) 04/09/24 16:47 Urine Urobilinogen 0.2 (NORMAL) E.U./dL (NORMAL) 04/09/24 16:47 Ur Leukocyte Esterase NEGATIVE (NEGATIVE) 04/09/24 16:47 Ur Microscopic Review NOT INDICATED 04/09/24 16:47 Urine Culture Comments NOT INDICATED 04/09/24 16:47 Nasal Screen MRSA (PCR) NEGATIVE (NEGATIVE) 04/09/24 19:45 Salicylates < 1.5 mg/dL 04/09/24 12:27 Urine Opiates Screen NEGATIVE (NEGATIVE) 04/09/24 16:47 Ur Buprenorphine Scrn NEGATIVE (NEGATIVE) 04/09/24 16:47 Ur Oxycodone Screen NEGATIVE (NEGATIVE) 04/09/24 16:47 Urine Methadone Screen NEGATIVE (NEGATIVE) 04/09/24 16:47 Acetaminophen 0.2 ug/mL 04/09/24 12:27 Ur Barbiturates Screen NEGATIVE (NEGATIVE) 04/09/24 16:47 Ur Tricyclics Screen NEGATIVE (NEGATIVE) 04/09/24 16:47 Ur Phencyclidine Scrn NEGATIVE (NEGATIVE) 04/09/24 16:47 Ur Amphetamine Screen NEGATIVE (NEGATIVE) 04/09/24 16:47 U Methamphetamines Scrn POSITIVE (NEGATIVE) H 04/09/24 16:47 U Benzodiazepines Scrn NEGATIVE (NEGATIVE) 04/09/24 16:47 Urine Cocaine Screen POSITIVE (NEGATIVE) H 04/09/24 16:47 U Cannabinoids Screen POSITIVE (NEGATIVE) H 04/09/24 16:47 Ur Drug Screen Comment CUTOFF CONC BELOW: 04/09/24 16:47 Ethyl Alcohol < 10.0 mg/dL 04/09/24 12:27 SARS-CoV-2 (PCR) DETECTED A 04/17/24 10:55
[2024-04-18] MEDS: HYDROcod/ACETAM 5/325 MG TABLET PO PRN (18:35)
[2024-04-18] MEDS: CEFPODOXIME PROXETIL 100 MG TABLET PO SCH (20:07)
[2024-04-19 07:48] LABS: BASOPHILS % (AUTO) 0.1 %; EOSINOPHILS % (AUTO) 0.1 %; LYMPHOCYTES # (AUTO) 1.8 10^3/uL (1.5-3.5); MEAN CORPUSCULAR HEMOGLOBIN 32.9 pg (27.0-31.0); MEAN CORPUSCULAR HGB CONC 33.3 g/dL (32.0-36.0); MEAN CORPUSCULAR VOLUME 98.8 fL (81.0-99.0); MEAN PLATELET VOLUME 9.2 fL (7.9-10.8); MONOCYTES # (AUTO) 0.7 10^3/uL (0.0-1.0); MONOCYTES % (AUTO) 8.8 %; PLT - PLATELET COUNT 480 10^3/uL (130-450); RED BLOOD COUNT 3.34 10^6/uL (4.20-5.40); RED CELL DISTRIBUTION WIDTH 12.9 % (12.0-15.0)
[2024-04-19 07:59] VITALS: O2SAT 94
[2024-04-19 08:19] LABS: CALCIUM 9.3 mg/dL (8.5-10.3); CREATININE 0.5 mg/dL (0.6-1.3); POTASSIUM 4.2 mmol/L (3.5-4.5)
--- NOTE | 2024-04-19 10:34 | Discharge Plan ---
Discharge Plan Problem Reviewed?: Yes Disposition: Home, Self Care Condition: Good Prescriptions: Ketorolac [Toradol] 10 mg PO Q6H PRN #30 tablet PRN Reason: Pain 1-4 Cefpodoxime Proxetil [Vantin] 200 mg PO BID 6 Days #24 tab Diet: Regular Activity Restrictions: Activity as Tolerated Plan of Treatment: Dr. Swartz, colorectal surgery at [facility] plans to call you early next week to establish an appointment time for your rectal prolapse. Please continue your antibiotics until the end date. No Smoking: If you smoke, Please STOP! Call for help.
--- NOTE | 2024-04-19 10:36 | DISCHARGE SUMMARY ---
Discharge Summary Admit Date: 04/09/24 Discharge Date: 04/19/24 Discharging Provider: Lizeth Desai Primary Care Provider: GOLDEN Code Status: Attempt Resuscitation Condition at Discharge: Good Discharge Disposition: 01 Home, Self Care - HPI History of Present Illness: Marcella Torres is a 68-year-old woman who presented to the emergency room at approximately 1228 with altered mental status. Patient was brought to the emergency room by EMS service. Per report patient was not ventilating in the field and was unresponsive. She was given Narcan by a bystander and received chest compressions briefly. Upon arrival of EMS service, patient had low oxygen saturation. It is reported that patient was smoking cannabis and using cocaine. Bystanders thinks the patient may also used fentanyl and methamphetamine possibly. Patient reports she is supposed to take levothyroxine but has not taken it for several months. She also reports that she is on a blood thinner but has not been taking this for months as well. She reports a history of myocardial infar ction and stroke. She has a [id number] history of smoking. She reports she drinks alcohol regularly but could not quantitate how much alcohol she drinks. She reports using methamphetamine and cocaine when she can obtain it. She reports smoking cannabis regularly. She denies use of opiates. In the emergency room, laboratory workup revealed no anion gap with a potassium of 3.3, glucose of 181 and a magnesium of 1.6. Patient's TSH was 68 and free T4 was 4.8. Chest x-ray performed in the emergency room revealed no acute cardiopulmonary process. In the emergency room, patient received doses of Narcan intermittently and usually received 2 mg intravenously. It is reported that patient's mental status improved slightly with use of Narcan. - HOSPITAL COURSE Hospital Course: Patient is a 68-year-old female who presented to the ED with altered mental status via EMS after being given Narcan and receiving a brief round of chest compressions. Patient was admitted and intubated shortly after due to worsening hypoxia and inability to protect her airway. She was given a diagnosis of pneumonia and started on antibiotics with Zosyn for anaerobic coverage due to concern for aspiration. A blood culture was also positive for Streptococcus pneumonia which was believed to be secondary to her pulmonary process. Patient was extubated on 04/14 and placed on supplemental oxygen which was successfully weaned off over the next several days. Repeat blood cultures returned negative. I TTE was performed which did not show any evidence of vegetations. Case was discussed with infectious disease who had recommended continuing her on cefpodoxime for a total of 14 days after her first negative blood culture. Her hospital course was complicated by a rectal prolapse. This was discussed with several hospitals in attempt to transfer the patient for surgical consultation. Unfortunately this was unsuccessful however [facility] colorectal surgery stated they will follow-up with her as an outpatient shortly after discharge for further management of her rectal prolapse. Patient was subsequently discharged home. We will follow-up with her with crisis phone calls for the next 3 to 4 days. In discussion with the patient, she stated that her overdose was unintentional and that she does not use any type of opiates at home. She stated that she does not plan to overdose again. Patient is not suicidal. - ALLERGIES Allergies/Adverse Reactions: Allergies Allergy/AdvReac Type Severity Reaction Status Date / Time No Known Drug Allergies Allergy Verified 04/09/24 12:33 - MEDICATIONS Home Medications: Ambulatory Orders Medication Instructions Recorded Confirmed Cefpodoxime Proxetil [Vantin] 200 mg PO BID 6 Days #24 tab 04/19/24 Cefpodoxime Proxetil [Vantin] 200 mg PO Q12H 6 Days #24 tablet 04/19/24 Ketorolac [Toradol] 10 mg PO Q6H PRN #30 tablet 04/19/24 - PHYSICAL EXAM AT DISCHARGE General Appearance: positive: No acute distress, Alert Respiratory: positive: Chest non-tender, No respiratory distress, Breath sounds nml Cardiovascular: positive: Regular rate & rhythm, No murmur, No gallop Abdomen: positive: Non-tender, No organomegaly, Nml bowel sounds Rectal: positive: Other (Rectal prolapse with cough) Skin: positive: Color nml, No rash Extremities: positive: Non-tender, Full ROM, No pedal edema - LABS Result Diagrams: 04/19/24 07:42 04/19/24 07:42 - DIAGNOSTIC IMAGING Diagnostic Imaging Results: Final report reviewed - SEPSIS Current Stage of Sepsis: Resolved Possible source of Sepsis: Pulmonary - FOLLOW UP Follow Up: Follow up with PCP. - TIME SPENT Time Spent in Discharge (Minutes): 30
[2024-04-19 11:28] VITALS: BP 120/71
== END 2024-04-19 12:01 | disposition home or self-care (01) | DRG 871 ==
LOC: EDUNIT# → ED 12:22 → ICU 18:36 → MS2 04-14 07:32 → ICU 04-14 07:33 → MS3 04-16 18:22
PROVIDERS: ADMIT Internal Medicine; ATTEND Family Medicine
PROC: 02H633Z Insertion of Infusion Device into Right Atrium, Percutaneous Approach (ICD-10-PCS; 2024-04-10)
PROC: 0BH17EZ Insertion of Endotracheal Airway into Trachea, Via Natural or Artificial Opening (ICD-10-PCS; principal; 2024-04-11)
PROC: 5A1945Z Respiratory Ventilation, 24-96 Consecutive Hours (ICD-10-PCS; 2024-04-11)
DX: A40.9 Streptococcal sepsis, unspecified (principal); G92.9 Unspecified toxic encephalopathy; J13 Pneumonia due to Streptococcus pneumoniae; J96.01 Acute respiratory failure with hypoxia; J96.02 Acute respiratory failure with hypercapnia; J69.0 Pneumonitis due to inhalation of food and vomit; S22.42XA Multiple fractures of ribs, left side, initial encounter for closed fracture; Z59.00 Homelessness unspecified; T38.1X6A Underdosing of thyroid hormones and substitutes, initial encounter; T45.516A Underdosing of anticoagulants, initial encounter; I25.2 Old myocardial infarction; F15.10 Other stimulant abuse, uncomplicated; F12.10 Cannabis abuse, uncomplicated; F10.10 Alcohol abuse, uncomplicated; F14.10 Cocaine abuse, uncomplicated; F17.210 Nicotine dependence, cigarettes, uncomplicated; E03.9 Hypothyroidism, unspecified; E87.6 Hypokalemia; E83.42 Hypomagnesemia; D72.819 Decreased white blood cell count, unspecified; V09.9XXA Pedestrian injured in unspecified transport accident, initial encounter; Y92.481 Parking lot as the place of occurrence of the external cause; S01.01XA Laceration without foreign body of scalp, initial encounter; I10 Essential (primary) hypertension; K62.3 Rectal prolapse; Z20.822 Contact with and (suspected) exposure to COVID-19; Z79.899 Other long term (current) drug therapy; Z86.73 Personal history of transient ischemic attack (TIA), and cerebral infarction without residual deficits; Z91.128 Patient's intentional underdosing of medication regimen for other reason
CPT/HCPCS: 36415; 36600; 71045; 80048; 80053; 80143; 80179; 80306; 81003; 82077; 82330; 82550; 82607; 82746; 82803; 83036; 83605; 83690; 83735; 83880; 84100; 84132; 84436; 84443; 84479; 84481; 84484; 85025; 85027; 85610; 85730; 87040; 87086; 87150; 87154; 87181; 87635; 93005; 93307; 94002; 94003; 94667; 94668; 96361; 96365; 96366; 96368; 96375; 96376; 97162; 97167; 97535; 99284; 99285; A9270; G2215; J0131; J1650; J2060; J3411; Q0162; 81001